=== PATIENT | female | born 1945 | race Caucasian/White ===

== ENCOUNTER 2017-12-05 10:36 | Day surgery (SDC) | payer MEDICARE, OTHER ==
[2017-12-03 08:20] VITALS: BP 114/77
[~2017-12-05] VITALS: Ht 156.2 cm; Wt 135.1 kg
[~2017-12-05 10:36] MED LIST: ALBU18HF INH; ASPI-496 PO; BUDE10.2 INH; BUPIVACAINE/PF 0.5% ONE; CALC-316 PO; CETI10CA PO; EPINEPHRINE 1 MG/ML, 1ML ONE; FURO40SO5 PO; GABA100C PO; LACTATED RINGERS 1,000 ML IV SCH; LIDOCAINE 1%, 2ML SQ PRN; METO50TA4 PO; MONT10TA6 PO; OXYC20TA2 PO; OXYM15TA7 PO; PANT40TA5 PO; PRED5TAB PO; PRED5TAB19 PO; SIMPONI IV; VENL75CA PO
[2017-12-05] MEDS ORDERED: LACTATED RINGERS 1,000 ML IV SCH (11:40)
[2017-12-05 11:42] VITALS: BP 121/90
[2017-12-05] MEDS ORDERED: SODIUM CHLORIDE 0.9% 1,000 ML IV SCH (11:47)
[2017-12-05] MEDS ORDERED: PROPOFOL 50 ML ONE (11:56)
[2017-12-05] MEDS ORDERED: PROPOFOL 10 MG/ML, 20ML ONE ×2 (11:56)
[2017-12-05] MEDS ORDERED: CEFAZOLIN 1,000 MG ONE (11:56)
[2017-12-05] MEDS ORDERED: MIDAZOLAM 1 MG/ML, 2ML ONE (11:56)
[2017-12-05] MEDS ORDERED: FENTANYL PF 100 MCG/2ML ONE (11:56)
[2017-12-05] MEDS ORDERED: BUPIVACAINE/PF-EPI 0.5% 1:200K IM ONE (12:16)
[2017-12-05] MEDS ORDERED: ONDANSETRON 2MG/ML, 2ML ONE ×2 (12:17)
[2017-12-05] MEDS ORDERED: OXYcodone 5 MG/5 ML ORAL.SOL UDC ONE (12:49)
[2017-12-05] MEDS ORDERED: HYDROmorphone 2 MG/ML, 1ML ONE (12:56)
[2017-12-05] MEDS ORDERED: LABETALOL 5MG/ML, 20ML IV PRN (13:00)
[2017-12-05] MEDS ORDERED: MIDAZOLAM 1 MG/ML, 2ML IV PRN (13:00)
[2017-12-05] MEDS ORDERED: METOPROLOL 1 MG/ML, 5ML IV PRN (13:00)
[2017-12-05] MEDS ORDERED: HYDROcodone/APAP 7.5-325MG/15ML UDC PO PRN (13:00)
[2017-12-05] MEDS ORDERED: EPHEDRINE 50 MG/ML, 1ML IVPush PRN (13:00)
[2017-12-05] MEDS ORDERED: ONDANSETRON 2MG/ML, 2ML IVPush PRN (13:00)
[2017-12-05] MEDS ORDERED: PROMETHAZINE 12.5 MG SUPP PR PRN (13:00)
[2017-12-05] MEDS ORDERED: FENTANYL PF 100 MCG/2ML IV PRN (13:00)
[2017-12-05] MEDS ORDERED: hydrALAzine 20 MG/ML, 1ML IV PRN (13:00)
[2017-12-05] MEDS ORDERED: ACETAMINOPHEN 325 MG TABLET PO PRN (13:00)
[2017-12-05] MEDS ORDERED: OXYcodone 5 MG/5 ML ORAL.SOL UDC PO PRN (13:00)
[2017-12-05] MEDS ORDERED: HYDROmorphone 1 MG/ML, 1ML IV PRN (13:00)
[2017-12-05] MEDS ORDERED: ALBUTEROL/IPRATROPIUM 2.5MG/0.5MG, 3 ML NPPB PRN (13:00)
[2017-12-05] MEDS ORDERED: ALBUTEROL SULFATE 2.5 MG/3 ML NPPB PRN (13:00)
== END 2017-12-05 15:35 ==
LOC: OUT 10:36
PROVIDERS: ATTEND Surgery
DX: T85.695A Other mechanical complication of other nervous system device, implant or graft, initial encounter (principal); J44.9 Chronic obstructive pulmonary disease, unspecified; E66.01 Morbid (severe) obesity due to excess calories; G47.33 Obstructive sleep apnea (adult) (pediatric); I25.10 Atherosclerotic heart disease of native coronary artery without angina pectoris; I12.9 Hypertensive chronic kidney disease with stage 1 through stage 4 chronic kidney disease, or unspecified chronic kidney disease; N18.3 Chronic kidney disease, stage 3 (moderate); Z95.5 Presence of coronary angioplasty implant and graft; K21.9 Gastro-esophageal reflux disease without esophagitis; Z88.1 Allergy status to other antibiotic agents; Z88.8 Allergy status to other drugs, medicaments and biological substances; Y83.8 Other surgical procedures as the cause of abnormal reaction of the patient, or of later complication, without mention of misadventure at the time of the procedure; Y92.89 Other specified places as the place of occurrence of the external cause
CPT/HCPCS: 63688; 93005; J0690; J1170; J2250; J2405; J2704; J3010; J3490; J7030; J0171

== ENCOUNTER 2018-01-11 11:16 | Inpatient (IN) | payer MEDICARE, OTHER ==
[~2018-01-11] VITALS: Ht 154.9 cm; Wt 143.0 kg
[~2018-01-11 11:16] MED LIST changes: -BUPIVACAINE/PF 0.5% ONE; -EPINEPHRINE 1 MG/ML, 1ML ONE; -LACTATED RINGERS 1,000 ML IV SCH; -LIDOCAINE 1%, 2ML SQ PRN
[2018-01-11] MEDS ORDERED: DILTIAZEM 5 MG/ML, 5ML IV ONE (12:00)
[2018-01-11] MEDS ORDERED: SODIUM CHLORIDE FLUSH 10ML SYR IVF ONE (12:00)
[2018-01-11 12:17] LABS: MEAN CORPUSCULAR HEMOGLOBIN 29.8 pg (27.0-34.8); MEAN CORPUSCULAR HGB CONC 32.8 g/dL (32.4-35.8); MEAN CORPUSCULAR VOLUME 90.8 fL (80-100); MEAN PLATELET VOLUME 8.4 fL (7.4-10.4); PLATELET COUNT 264 x10^3/uL (130-400); RED BLOOD COUNT 4.15 x10^6/uL (3.82-5.3); RED CELL DISTRIBUTION WIDTH 19.8 % (9.6-15.2)
[2018-01-11 12:25] LABS: INTERNATIONAL NORMALIZED RATIO 0.93 (0.93-1.1); PROTHROMBIN TIME 9.7 Seconds (9.6-11.5)
[2018-01-11 12:28] LABS: ALANINE AMINOTRANSFERASE 27 U/L (12-78); ALBUMIN 3.2 g/dL (3.4-5.0); ANION GAP 7 mmol/L (5-15); CALCIUM 8.5 mg/dL (8.5-10.1); CHLORIDE 98 mmol/L (98-107); CREATININE 1.75 mg/dL (0.55-1.02)
[2018-01-11] MEDS ORDERED: BUDE10.2 INH (12:31)
[2018-01-11 12:32] LABS: ALKALINE PHOSPHATASE 149 U/L (45-117); BILIRUBIN,TOTAL 0.9 mg/dL (0.2-1.0); TOTAL PROTEIN 6.8 g/dL (6.4-8.2); TROPONIN I < 0.015 ng/mL (0.000-0.045)
[2018-01-11] MEDS ORDERED: FOLI0.4T2 PO (12:32)
[2018-01-11] MEDS ORDERED: MULT1CAP19 PO (12:33)
[2018-01-11] MEDS ORDERED: GABA100C PO (12:33)
[2018-01-11] MEDS ORDERED: MOME17SP NAS (12:40)
[2018-01-11] MEDS ORDERED: ERGO500017 PO (12:42)
[2018-01-11] MEDS ORDERED: FLUO40CA2 PO (12:42)
[2018-01-11] MEDS ORDERED: SIMV20TA3 PO (12:43)
[2018-01-11] MEDS ORDERED: LISI-467 PO (12:43)
[2018-01-11] MEDS ORDERED: METO50TA4 PO (12:44)
[2018-01-11] MEDS ORDERED: ATEN25TA PO (12:44)
[2018-01-11] MEDS ORDERED: DIPH1TAB PO (12:45)
[2018-01-11] MEDS ORDERED: ONDA4TAB10 PO (12:46)
[2018-01-11 12:54] LABS: BASOPHILS # (AUTO) 0.04 x10^3/uL (0-0.1); BASOPHILS % (AUTO) 0 % (0-1); EOSINOPHILS % (AUTO) 1 % (1-7); LYMPHOCYTES # (AUTO) 1.42 x10^3/uL (1-3.4); LYMPHOCYTES % (AUTO) 8 % (22-44); MD SCAN; MONOCYTES # (AUTO) 0.95 x10^3/uL (0.2-0.8); MONOCYTES % (AUTO) 5 % (2-9); NEUTROPHILS # (AUTO) 16.58 x10^3/uL (1.8-6.8); NEUTROPHILS % (AUTO) 87 % (42-75)
[2018-01-11] MEDS ORDERED: SODIUM CHLORIDE 0.9% 1,000ML IVBOLUS ONE (13:30)
[2018-01-11] MEDS ORDERED: ENOXAPARIN 40 MG/0.4 ML SQ ONE (16:00)
[2018-01-11] MEDS ORDERED: ENOXAPARIN 40 MG/0.4 ML ONE (16:01)
[2018-01-11] MEDS: ENOXAPARIN 100 MG/ML SQ SCH (16:05)
[2018-01-11] MEDS ORDERED: SODIUM CHLORIDE FLUSH 10ML SYR IVF PRN (16:30)
[2018-01-11] MEDS ORDERED: OXYC30TA66 PO (17:58)
[2018-01-11] MEDS ORDERED: hydrALAzine 20 MG/ML, 1ML IVPush PRN (18:00)
[2018-01-11] MEDS ORDERED: ONDANSETRON 2MG/ML, 2ML IVPush PRN (18:00)
[2018-01-11] MEDS ORDERED: TEMPLATE NON-FORMULARY MED. (Oxycodone Hcl** 20 MG) PO SCH (18:00)
[2018-01-11] MEDS ORDERED: ALBUTEROL SULFATE 2.5 MG/3 ML NPPB PRN (18:00)
[2018-01-11] MEDS ORDERED: morphine SULFATE 10 MG/ML, 1ML IVPush PRN (18:00)
[2018-01-11] MEDS ORDERED: BISACODYL 10 MG SUPP PR PRN (18:00)
[2018-01-11] MEDS ORDERED: LABETALOL 5MG/ML, 20ML IVPush PRN (18:00)
[2018-01-11] MEDS ORDERED: ENALAPRILAT 1.25 MG/ML, 2ML IVPush PRN (18:00)
[2018-01-11] MEDS: ALBUTEROL SULFATE 2.5 MG/3 ML NPPB SCH (18:00)
[2018-01-11] MEDS: GABAPENTIN 100 MG CAPSULE PO SCH ×2 (18:00→20:14)
[2018-01-11 18:06] LABS: FREE T4 (FREE THYROXINE) 1.34 ng/dL (0.76-1.46); THYROID STIMULATING HORMONE 0.613 mIU/L (0.358-3.740)
[2018-01-11 18:07] LABS: HEMOGLOBIN A1C 5.9 % (4.2-6.3)
[2018-01-11] MEDS: OXYcodone IR 5MG TABLET PO PRN (20:14)
[2018-01-11] MEDS: CETIRIZINE 10 MG TABLET PO SCH (20:15)
[2018-01-11] MEDS: CALCIUM/VITAMIN D3 250-125 TABLET PO SCH (20:15)
[2018-01-11] MEDS: SIMVASTATIN 20 MG TABLET PO SCH (20:15)
[2018-01-11] MEDS: SODIUM CHLORIDE 0.9% 1,000 ML IV SCH (20:15)
[2018-01-11] MEDS: DILTIAZEM 125 MG in SODIUM CHLORIDE 0.9% 100 ML IV PRN (20:16)
[2018-01-11 20:28] VITALS: BP 101/68
[2018-01-11] MEDS: FLUTICASONE/VILANTEROL 200-25MCG/INH INH SCH (21:00)
[2018-01-11 21:36] LABS: TROPONIN I < 0.015 ng/mL (0.000-0.045)
[2018-01-11] MEDS: ACETAMINOPHEN 325 MG TABLET PO PRN (23:38)
[2018-01-12 01:51] VITALS: BP 90/47
[2018-01-12 03:14] LABS: MEAN CORPUSCULAR HEMOGLOBIN 29.5 pg (27.0-34.8); MEAN CORPUSCULAR HGB CONC 32.4 g/dL (32.4-35.8); MEAN CORPUSCULAR VOLUME 91.2 fL (80-100); MEAN PLATELET VOLUME 7.9 fL (7.4-10.4); PLATELET COUNT 235 x10^3/uL (130-400); RED BLOOD COUNT 3.64 x10^6/uL (3.82-5.3); RED CELL DISTRIBUTION WIDTH 19.8 % (9.6-15.2)
[2018-01-12 03:26] LABS: ALANINE AMINOTRANSFERASE 28 U/L (12-78); ALBUMIN 2.8 g/dL (3.4-5.0); ANION GAP 5 mmol/L (5-15); CALCIUM 8.3 mg/dL (8.5-10.1); CHLORIDE 102 mmol/L (98-107)
[2018-01-12 03:31] LABS: ALKALINE PHOSPHATASE 146 U/L (45-117); BILIRUBIN,TOTAL 1.1 mg/dL (0.2-1.0); CHOL/HDL RATIO 1.9; CHOLESTEROL, TOTAL 141 mg/dL (140-239); CREATININE 1.53 mg/dL (0.55-1.02); HDL CHOL % 53 % (28-40); HDL CHOLESTEROL (DIRECT) 75 mg/dL (40-60); LDL CHOLESTEROL,CALCULATED 50 mg/dL (54-169); LDL/HDL RATIO 0.7 (0.5-3.0); TOTAL PROTEIN 6.1 g/dL (6.4-8.2); TRIGLYCERIDES 80 mg/dL (50-200); TROPONIN I < 0.015 ng/mL (0.000-0.045); VLDL CHOLESTEROL 16 mg/dL (0-25)
[2018-01-12 03:34] LABS: BASOPHILS # (AUTO) 0.01 x10^3/uL (0-0.1); BASOPHILS % (AUTO) 0 % (0-1); EOSINOPHILS # (AUTO) 0.05 x10^3/uL (0-0.4); EOSINOPHILS % (AUTO) 0 % (1-7); LYMPHOCYTES % (AUTO) 14 % (22-44); MD SCAN; MONOCYTES # (AUTO) 1.06 x10^3/uL (0.2-0.8); MONOCYTES % (AUTO) 8 % (2-9); NEUTROPHILS # (AUTO) 10.96 x10^3/uL (1.8-6.8); NEUTROPHILS % (AUTO) 78 % (42-75)
[2018-01-12] MEDS: ENOXAPARIN 100 MG/ML SQ SCH ×2 (03:55→15:54)
[2018-01-12] MEDS: ENOXAPARIN 40 MG/0.4 ML SQ SCH ×2 (03:55→15:54)
[2018-01-12] MEDS ORDERED: ENOXAPARIN 60 MG/0.6 ML SQ SCH (04:00)
[2018-01-12] MEDS: OXYcodone IR 5MG TABLET PO PRN ×3 (05:16→15:53)
[2018-01-12] MEDS: SODIUM CHLORIDE 0.9% 1,000 ML IV SCH (05:16)
[2018-01-12] MEDS: ALBUTEROL SULFATE 2.5 MG/3 ML NPPB SCH ×2 (06:00)
[2018-01-12] MEDS: SENNA/DOCUSATE TABLET PO SCH (07:54)
[2018-01-12 08:39] VITALS: BP 125/78
[2018-01-12] MEDS: FLUTICASONE/VILANTEROL 200-25MCG/INH INH SCH (09:39)
[2018-01-12] MEDS: MOMETASONE FUROATE NAS SCH (09:40)
[2018-01-12] MEDS: CALCIUM/VITAMIN D3 250-125 TABLET PO SCH (09:41)
[2018-01-12] MEDS: FOLIC ACID 1 MG TABLET PO SCH (09:41)
[2018-01-12] MEDS: ASPIRIN 81 MG TABLET EC PO SCH (09:41)
[2018-01-12] MEDS: ACETAMINOPHEN 325 MG TABLET PO PRN (09:41)
[2018-01-12] MEDS: MAGNESIUM OXIDE 400 MG TABLET PO SCH (09:41)
[2018-01-12] MEDS: PANTOPROZOLE 40MG TABLET PO SCH (09:42)
[2018-01-12] MEDS: FLUOXETINE HCL 20 MG CAPSULE PO SCH (09:42)
[2018-01-12] MEDS: GABAPENTIN 100 MG CAPSULE PO SCH ×3 (09:42→20:25)
[2018-01-12] MEDS: LISINOPRIL 20 MG TABLET PO SCH (09:42)
[2018-01-12] MEDS: METOPROLOL SUCCINATE 50 MG TAB.ER.24H PO SCH (09:43)
[2018-01-12] MEDS: CETIRIZINE 10 MG TABLET PO SCH (09:44)
[2018-01-12] MEDS: MONTELUKAST 10 MG TABLET PO SCH (09:45)
[2018-01-12 12:07] VITALS: BP 134/80
[2018-01-12] MEDS: DILTIAZEM CD 180 MG CAP.ER.24H PO SCH (15:53)
[2018-01-12 18:42] VITALS: BP 111/63
[2018-01-12 18:43] LABS: MICROSCOPIC NOT IND
[2018-01-12 18:45] LABS: CULTURE INDICATED? NO
[2018-01-12] MEDS ORDERED: ENOXAPARIN 100 MG/ML SQ SCH (19:00)
[2018-01-12] MEDS: DILTIAZEM 125 MG in SODIUM CHLORIDE 0.9% 100 ML IV PRN (19:18)
[2018-01-12] MEDS: SIMVASTATIN 20 MG TABLET PO SCH (20:25)
[2018-01-13 02:35] VITALS: BP 90/58
[2018-01-13 03:27] VITALS: BP 106/59
[2018-01-13 07:25] VITALS: BP 156/78
[2018-01-13] MEDS: MOMETASONE FUROATE NAS SCH (09:00)
[2018-01-13] MEDS: FLUTICASONE/VILANTEROL 200-25MCG/INH INH SCH (09:49)
[2018-01-13] MEDS: MAGNESIUM OXIDE 400 MG TABLET PO SCH (09:49)
[2018-01-13] MEDS: GABAPENTIN 100 MG CAPSULE PO SCH ×3 (09:50→21:00)
[2018-01-13] MEDS: LISINOPRIL 20 MG TABLET PO SCH (09:50)
[2018-01-13] MEDS: DILTIAZEM CD 180 MG CAP.ER.24H PO SCH (09:50)
[2018-01-13] MEDS: ASPIRIN 81 MG TABLET EC PO SCH (09:50)
[2018-01-13] MEDS: FLUOXETINE HCL 20 MG CAPSULE PO SCH (09:50)
[2018-01-13] MEDS: CALCIUM/VITAMIN D3 250-125 TABLET PO SCH (09:50)
[2018-01-13] MEDS: PANTOPROZOLE 40MG TABLET PO SCH (09:50)
[2018-01-13] MEDS: FOLIC ACID 1 MG TABLET PO SCH (09:50)
[2018-01-13] MEDS: CYCLOBENZAPRINE 10 MG TABLET PO PRN (09:51)
[2018-01-13] MEDS: MONTELUKAST 10 MG TABLET PO SCH (09:53)
[2018-01-13] MEDS: METOPROLOL SUCCINATE 50 MG TAB.ER.24H PO SCH (09:53)
[2018-01-13] MEDS: SENNA/DOCUSATE TABLET PO SCH (09:53)
[2018-01-13] MEDS: CETIRIZINE 10 MG TABLET PO SCH (09:56)
[2018-01-13] MEDS: ACETAMINOPHEN 325 MG TABLET PO PRN (10:54)
[2018-01-13] MEDS: OXYcodone IR 5MG TABLET PO PRN (10:54)
[2018-01-13 10:56] VITALS: BP 117/70
[2018-01-13 12:42] VITALS: BP 111/74
[2018-01-13] MEDS: FUROSEMIDE 40 MG TABLET PO SCH (13:56)
[2018-01-13] MEDS ORDERED: ENOXAPARIN 40 MG/0.4 ML SQ SCH (16:00)
[2018-01-13] MEDS: DILTIAZEM 125 MG in SODIUM CHLORIDE 0.9% 100 ML IV PRN (17:32)
[2018-01-13] MEDS: OxyconTIN ER 20 MG TAB.ER PO SCH ×2 (17:32→21:00)
[2018-01-13 19:23] VITALS: BP 126/76
[2018-01-13] MEDS: SIMVASTATIN 20 MG TABLET PO SCH (21:05)
[2018-01-14 01:25] VITALS: BP 103/64
[2018-01-14] MEDS: DILTIAZEM 125 MG in SODIUM CHLORIDE 0.9% 100 ML IV PRN ×2 (02:16→17:56)
[2018-01-14 05:03] LABS: BASOPHILS # (AUTO) 0.04 x10^3/uL (0-0.1); BASOPHILS % (AUTO) 0 % (0-1); EOSINOPHILS # (AUTO) 0.17 x10^3/uL (0-0.4); EOSINOPHILS % (AUTO) 1 % (1-7); LYMPHOCYTES # (AUTO) 1.51 x10^3/uL (1-3.4); LYMPHOCYTES % (AUTO) 10 % (22-44); MD NO; MEAN CORPUSCULAR HEMOGLOBIN 29.8 pg (27.0-34.8); MEAN CORPUSCULAR HGB CONC 32.6 g/dL (32.4-35.8); MEAN CORPUSCULAR VOLUME 91.3 fL (80-100); MEAN PLATELET VOLUME 8.8 fL (7.4-10.4); MONOCYTES # (AUTO) 1.24 x10^3/uL (0.2-0.8); MONOCYTES % (AUTO) 8 % (2-9); NEUTROPHILS # (AUTO) 12.76 x10^3/uL (1.8-6.8); NEUTROPHILS % (AUTO) 81 % (42-75); PLATELET COUNT 250 x10^3/uL (130-400); RED BLOOD COUNT 3.63 x10^6/uL (3.82-5.3); RED CELL DISTRIBUTION WIDTH 19.2 % (9.6-15.2)
[2018-01-14 05:12] LABS: ANION GAP 9 mmol/L (5-15); CALCIUM 8.4 mg/dL (8.5-10.1); CHLORIDE 98 mmol/L (98-107)
[2018-01-14 05:13] LABS: CREATININE 1.89 mg/dL (0.55-1.02)
[2018-01-14] MEDS: OxyconTIN ER 20 MG TAB.ER PO SCH ×2 (05:47→10:42)
[2018-01-14 08:15] VITALS: BP 124/81
[2018-01-14] MEDS: MOMETASONE FUROATE NAS SCH (09:00)
[2018-01-14] MEDS: FOLIC ACID 1 MG TABLET PO SCH (10:41)
[2018-01-14] MEDS: PANTOPROZOLE 40MG TABLET PO SCH (10:41)
[2018-01-14] MEDS: FLUOXETINE HCL 20 MG CAPSULE PO SCH (10:41)
[2018-01-14] MEDS: MONTELUKAST 10 MG TABLET PO SCH (10:41)
[2018-01-14] MEDS: FUROSEMIDE 40 MG TABLET PO SCH (10:42)
[2018-01-14] MEDS: GABAPENTIN 100 MG CAPSULE PO SCH ×3 (10:42→22:47)
[2018-01-14] MEDS: ASPIRIN 81 MG TABLET EC PO SCH (10:42)
[2018-01-14] MEDS: METOPROLOL SUCCINATE 50 MG TAB.ER.24H PO SCH (10:42)
[2018-01-14] MEDS: CETIRIZINE 10 MG TABLET PO SCH (10:42)
[2018-01-14] MEDS: DILTIAZEM 240 MG CAP.ER.24H PO SCH (10:42)
[2018-01-14] MEDS: CALCIUM/VITAMIN D3 250-125 TABLET PO SCH (10:42)
[2018-01-14] MEDS: SENNA/DOCUSATE TABLET PO SCH (10:43)
[2018-01-14] MEDS: LISINOPRIL 20 MG TABLET PO SCH (10:43)
[2018-01-14] MEDS: MAGNESIUM OXIDE 400 MG TABLET PO SCH (10:43)
[2018-01-14] MEDS: FLUTICASONE/VILANTEROL 200-25MCG/INH INH SCH (10:44)
[2018-01-14] MEDS ORDERED: VENL75CA PO (10:47)
[2018-01-14] MEDS: CYCLOBENZAPRINE 10 MG TABLET PO PRN (10:51)
[2018-01-14 13:50] VITALS: BP 105/62
[2018-01-14] MEDS ORDERED: DIGOXIN 0.25 MG/ML, 2ML IVPush ONE (14:30)
[2018-01-14] MEDS ORDERED: HEPARIN 5,000 UNITS/ML, 1ML IV ONE (14:30)
[2018-01-14] MEDS: HEPARIN 25,000 UNITS/500ML PMX 500 ML IV PRN (15:28)
[2018-01-14 18:57] VITALS: BP 108/66
[2018-01-14] MEDS: SIMVASTATIN 20 MG TABLET PO SCH (22:47)
[2018-01-14] MEDS: HEPARIN 5,000 UNITS/ML, 1ML IV PRN (22:48)
[2018-01-14] MEDS ORDERED: OxyconTIN ER 20 MG TAB.ER PO SCH (23:00)
[2018-01-14] MEDS ORDERED: FUROSEMIDE 40 MG/4 ML IV ONE (23:30)
[2018-01-15 00:31] VITALS: BP 113/77
[2018-01-15 05:07] LABS: MEAN CORPUSCULAR HEMOGLOBIN 29.8 pg (27.0-34.8); MEAN CORPUSCULAR HGB CONC 32.6 g/dL (32.4-35.8); MEAN CORPUSCULAR VOLUME 91.3 fL (80-100); MEAN PLATELET VOLUME 8.5 fL (7.4-10.4); PLATELET COUNT 293 x10^3/uL (130-400); RED BLOOD COUNT 3.77 x10^6/uL (3.82-5.3); RED CELL DISTRIBUTION WIDTH 18.8 % (9.6-15.2)
[2018-01-15] MEDS: DILTIAZEM 125 MG in SODIUM CHLORIDE 0.9% 100 ML IV PRN (05:13)
[2018-01-15 05:22] LABS: ANION GAP 9 mmol/L (5-15); CALCIUM 8.6 mg/dL (8.5-10.1); CHLORIDE 100 mmol/L (98-107)
[2018-01-15 05:25] LABS: CREATININE 1.67 mg/dL (0.55-1.02)
[2018-01-15 06:01] LABS: BASOPHILS # (AUTO) 0.01 x10^3/uL (0-0.1); BASOPHILS % (AUTO) 0 % (0-1); EOSINOPHILS # (AUTO) 0.16 x10^3/uL (0-0.4); EOSINOPHILS % (AUTO) 1 % (1-7); LYMPHOCYTES # (AUTO) 1.35 x10^3/uL (1-3.4); LYMPHOCYTES % (AUTO) 10 % (22-44); MONOCYTES % (AUTO) 6 % (2-9); NEUTROPHILS # (AUTO) 11.89 x10^3/uL (1.8-6.8); NEUTROPHILS % (AUTO) 84 % (42-75)
[2018-01-15 06:02] LABS: MD SCAN
[2018-01-15 08:50] VITALS: BP 111/77
[2018-01-15] MEDS: MOMETASONE FUROATE NAS SCH (09:00)
[2018-01-15] MEDS: FLUOXETINE HCL 20 MG CAPSULE PO SCH (09:00)
[2018-01-15] MEDS ORDERED: SODIUM CHLORIDE 0.9% 1,000 ML IV ONE (09:00)
[2018-01-15] MEDS: DIGOXIN 0.25 MG/ML, 2ML IVPush SCH (09:00)
[2018-01-15] MEDS ORDERED: FUROSEMIDE 40 MG/4 ML IV SCH (09:00)
[2018-01-15] MEDS: FLUTICASONE/VILANTEROL 200-25MCG/INH INH SCH (09:18)
[2018-01-15] MEDS: ASPIRIN 81 MG TABLET EC PO SCH (09:19)
[2018-01-15] MEDS: DILTIAZEM 240 MG CAP.ER.24H PO SCH (09:19)
[2018-01-15] MEDS: CALCIUM/VITAMIN D3 250-125 TABLET PO SCH (09:19)
[2018-01-15] MEDS: FOLIC ACID 1 MG TABLET PO SCH (09:19)
[2018-01-15] MEDS: SENNA/DOCUSATE TABLET PO SCH (09:19)
[2018-01-15] MEDS: MONTELUKAST 10 MG TABLET PO SCH (09:19)
[2018-01-15] MEDS: MAGNESIUM OXIDE 400 MG TABLET PO SCH (09:20)
[2018-01-15] MEDS: CETIRIZINE 10 MG TABLET PO SCH (09:22)
[2018-01-15] MEDS: LISINOPRIL 20 MG TABLET PO SCH (09:22)
[2018-01-15] MEDS: GABAPENTIN 100 MG CAPSULE PO SCH ×3 (09:22→20:56)
[2018-01-15] MEDS: PANTOPROZOLE 40MG TABLET PO SCH (09:22)
[2018-01-15] MEDS: METOPROLOL SUCCINATE 50 MG TAB.ER.24H PO SCH (09:22)
[2018-01-15] MEDS: CYCLOBENZAPRINE 10 MG TABLET PO PRN (13:04)
[2018-01-15] MEDS: HEPARIN 5,000 UNITS/ML, 1ML IV PRN ×2 (14:36→21:52)
[2018-01-15] MEDS ORDERED: ALBUTEROL SULFATE 2.5 MG/3 ML ONE (15:34)
[2018-01-15] MEDS ORDERED: PROPOFOL 10 MG/ML, 20ML ONE (15:43)
[2018-01-15] MEDS ORDERED: ALBUTEROL SULFATE 2.5 MG/3 ML NPPB PRN (16:00)
[2018-01-15 20:00] VITALS: BP 126/80
[2018-01-15] MEDS: OXYcodone IR 5MG TABLET PO PRN (20:56)
[2018-01-15] MEDS: SIMVASTATIN 20 MG TABLET PO SCH (20:56)
[2018-01-16 01:32] VITALS: BP 102/63
[2018-01-16 04:42] LABS: ANION GAP 8 mmol/L (5-15); CHLORIDE 100 mmol/L (98-107); CREATININE 1.93 mg/dL (0.55-1.02)
[2018-01-16] MEDS: HEPARIN 25,000 UNITS/500ML PMX 500 ML IV PRN (05:07)
[2018-01-16 09:49] VITALS: BP 114/68
[2018-01-16] MEDS: SENNA/DOCUSATE TABLET PO SCH (09:55)
[2018-01-16] MEDS: CEFTRIAXONE PMX 2GM/50ML 50 ML IV SCH ×2 (09:55→11:34)
[2018-01-16] MEDS: DOXYCYCLINE 100MG TABLET PO SCH ×2 (09:55→19:36)
[2018-01-16] MEDS: ASPIRIN 81 MG TABLET EC PO SCH (09:55)
[2018-01-16] MEDS: FLUTICASONE/VILANTEROL 200-25MCG/INH INH SCH (09:55)
[2018-01-16] MEDS: GABAPENTIN 100 MG CAPSULE PO SCH ×3 (09:56→19:35)
[2018-01-16] MEDS: DILTIAZEM 240 MG CAP.ER.24H PO SCH (09:56)
[2018-01-16] MEDS: CETIRIZINE 10 MG TABLET PO SCH (09:56)
[2018-01-16] MEDS: CALCIUM/VITAMIN D3 250-125 TABLET PO SCH (09:56)
[2018-01-16] MEDS: FLUOXETINE HCL 20 MG CAPSULE PO SCH (09:57)
[2018-01-16] MEDS: MAGNESIUM OXIDE 400 MG TABLET PO SCH (09:57)
[2018-01-16] MEDS: FOLIC ACID 1 MG TABLET PO SCH (09:58)
[2018-01-16] MEDS: LISINOPRIL 20 MG TABLET PO SCH (09:58)
[2018-01-16] MEDS: PANTOPROZOLE 40MG TABLET PO SCH (09:58)
[2018-01-16] MEDS: MOMETASONE FUROATE NAS SCH (10:06)
[2018-01-16] MEDS: MONTELUKAST 10 MG TABLET PO SCH (10:06)
[2018-01-16] MEDS: DIGOXIN 0.25 MG/ML, 2ML IVPush SCH (10:06)
[2018-01-16] MEDS: APIXABAN 5 MG TABLET PO SCH ×2 (12:28→19:36)
[2018-01-16 15:09] VITALS: BP 114/72
[2018-01-16 19:00] VITALS: BP 123/74
[2018-01-16] MEDS: OXYcodone IR 5MG TABLET PO PRN (19:35)
[2018-01-16] MEDS: CYCLOBENZAPRINE 10 MG TABLET PO PRN (19:35)
[2018-01-16] MEDS: SIMVASTATIN 20 MG TABLET PO SCH (19:36)
[2018-01-16] MEDS: POLYETHYLENE GLYCOL 17 GM PACKET PO PRN (19:46)
[2018-01-17 00:05] VITALS: BP 141/80
[2018-01-17] MEDS: ACETAMINOPHEN 325 MG TABLET PO PRN (00:20)
[2018-01-17] MEDS: CEFTRIAXONE PMX 2GM/50ML 50 ML IV SCH (06:16)
[2018-01-17] MEDS ORDERED: LISINOPRIL 5 MG TABLET ONE (08:20)
[2018-01-17 08:24] VITALS: BP 144/70
[2018-01-17] MEDS: ASPIRIN 81 MG TABLET EC PO SCH (08:28)
[2018-01-17] MEDS: FLUTICASONE/VILANTEROL 200-25MCG/INH INH SCH (08:28)
[2018-01-17] MEDS: SENNA/DOCUSATE TABLET PO SCH (08:29)
[2018-01-17] MEDS: CETIRIZINE 10 MG TABLET PO SCH (08:29)
[2018-01-17] MEDS: MAGNESIUM OXIDE 400 MG TABLET PO SCH (08:29)
[2018-01-17] MEDS: CALCIUM/VITAMIN D3 250-125 TABLET PO SCH (08:29)
[2018-01-17] MEDS: MONTELUKAST 10 MG TABLET PO SCH (08:30)
[2018-01-17] MEDS: DOXYCYCLINE 100MG TABLET PO SCH (08:30)
[2018-01-17] MEDS: GABAPENTIN 100 MG CAPSULE PO SCH (08:30)
[2018-01-17] MEDS: FLUOXETINE HCL 20 MG CAPSULE PO SCH (08:30)
[2018-01-17] MEDS: DILTIAZEM 240 MG CAP.ER.24H PO SCH (08:30)
[2018-01-17] MEDS: PANTOPROZOLE 40MG TABLET PO SCH (08:31)
[2018-01-17] MEDS: MOMETASONE FUROATE NAS SCH (08:31)
[2018-01-17] MEDS: LISINOPRIL 20 MG TABLET PO SCH (08:31)
[2018-01-17] MEDS: APIXABAN 5 MG TABLET PO SCH (08:31)
[2018-01-17] MEDS: FOLIC ACID 1 MG TABLET PO SCH (08:31)
[2018-01-17] MEDS: POLYETHYLENE GLYCOL 17 GM PACKET PO PRN (08:40)
[2018-01-17] MEDS: OXYcodone IR 5MG TABLET PO PRN (08:41)
[2018-01-17] MEDS: CYCLOBENZAPRINE 10 MG TABLET PO PRN (08:41)
[2018-01-17] MEDS ORDERED: APIX5TAB PO (09:10)
[2018-01-17] MEDS ORDERED: DILT240C55 PO (09:10)
[2018-01-17] MEDS ORDERED: CEFD300C37 PO (09:10)
[2018-01-17] MEDS ORDERED: POLY17PO5 PO (09:10)
[2018-01-17] MEDS ORDERED: GABA-826 PO (09:10)
[2018-01-17] MEDS ORDERED: MAGN400T26 PO (09:10)
[2018-01-17] MEDS ORDERED: DOXY100T10 PO (09:10)
[2018-01-17] MEDS ORDERED: SENN1TAB7 PO (09:10)
[2018-01-17] MEDS ORDERED: LISI-167 PO (09:10)
== END 2018-01-17 11:40 | disposition home or self-care (01) | DRG 871 ==
LOC: ED 12:17 → EDIP 16:24 → 5SO 18:20 → DCLOUNGE 01-17 11:16
PROVIDERS: ADMIT Internal Medicine; ATTEND Internal Medicine
PROC: 5A2204Z Restoration of Cardiac Rhythm, Single (ICD-10-PCS; principal; 2018-01-15 11:40)
DX: A41.9 Sepsis, unspecified organism (principal); I26.99 Other pulmonary embolism without acute cor pulmonale; J18.9 Pneumonia, unspecified organism; J96.10 Chronic respiratory failure, unspecified whether with hypoxia or hypercapnia; I48.91 Unspecified atrial fibrillation; I08.1 Rheumatic disorders of both mitral and tricuspid valves; N18.3 Chronic kidney disease, stage 3 (moderate); Z99.81 Dependence on supplemental oxygen; E66.01 Morbid (severe) obesity due to excess calories; J44.0 Chronic obstructive pulmonary disease with (acute) lower respiratory infection; I48.92 Unspecified atrial flutter; I49.2 Junctional premature depolarization; J98.11 Atelectasis; Z68.43 Body mass index [BMI] 50.0-59.9, adult; I44.1 Atrioventricular block, second degree; I12.9 Hypertensive chronic kidney disease with stage 1 through stage 4 chronic kidney disease, or unspecified chronic kidney disease; E55.9 Vitamin D deficiency, unspecified; E78.5 Hyperlipidemia, unspecified; I25.10 Atherosclerotic heart disease of native coronary artery without angina pectoris; E78.00 Pure hypercholesterolemia, unspecified; G47.33 Obstructive sleep apnea (adult) (pediatric); G89.29 Other chronic pain; K21.9 Gastro-esophageal reflux disease without esophagitis; Z79.01 Long term (current) use of anticoagulants; Z87.891 Personal history of nicotine dependence
CPT/HCPCS: 36415; 71045; 71046; 78582; 80048; 80053; 80061; 81003; 83036; 83605; 83735; 83880; 84439; 84443; 84484; 85025; 85379; 85520; 85610; 85730; 87040; 92960; 93005; 93306; 93312; 93325; 93970; 94640; 96360; 96361; 96372; J0696; J1644; J1650; J1940; J2704; J7613; A9540; A9558; C9898; J1160; J7030

== ENCOUNTER 2018-01-27 11:27 | Inpatient (IN) | payer MEDICARE, OTHER ==
[~2018-01-27] VITALS: Ht 154.9 cm; Wt 141.5 kg
[~2018-01-27 11:27] MED LIST changes: +APIX5TAB PO; +ATEN25TA PO; +CEFD300C37 PO; +DILT240C55 PO; +DIPH1TAB PO; +DOXY100T10 PO; +ERGO500017 PO; +FLUO40CA2 PO; +FOLI0.4T2 PO; +GABA-826 PO; +LISI-167 PO; +LISI-467 PO; +MAGN400T26 PO; +MOME17SP NAS; +MULT1CAP19 PO; +ONDA4TAB10 PO; +OXYC30TA66 PO; +POLY17PO5 PO; +SENN1TAB7 PO; +SIMV20TA3 PO
[2018-01-27] MEDS ORDERED: SODIUM CHLORIDE FLUSH 10ML SYR IVF ONE (12:00)
[2018-01-27] MEDS ORDERED: MORPHINE SULFATE 4 MG/ML, 1ML IVPush PRN (12:00)
[2018-01-27] MEDS ORDERED: SODIUM CHLORIDE 0.9% 1,000ML IVBOLUS ONE (12:00)
[2018-01-27 12:18] LABS: HCT (SEDRATE) 37.3 % (34.6-47.8); MEAN CORPUSCULAR HEMOGLOBIN 30.1 pg (27.0-34.8); MEAN CORPUSCULAR VOLUME 91.3 fL (80-100); MEAN PLATELET VOLUME 7.6 fL (7.4-10.4); PLATELET COUNT 326 x10^3/uL (130-400); RED BLOOD COUNT 4.08 x10^6/uL (3.82-5.3); RED CELL DISTRIBUTION WIDTH 17.9 % (9.6-15.2)
[2018-01-27 12:24] LABS: INTERNATIONAL NORMALIZED RATIO 1.02 (0.93-1.1); PROTHROMBIN TIME 10.5 Seconds (9.6-11.5)
[2018-01-27 12:29] LABS: ALANINE AMINOTRANSFERASE 31 U/L (12-78); ALBUMIN 3.2 g/dL (3.4-5.0); ANION GAP 5 mmol/L (5-15); CALCIUM 8.5 mg/dL (8.5-10.1); CHLORIDE 103 mmol/L (98-107); CREATININE 1.43 mg/dL (0.55-1.02)
[2018-01-27 12:32] LABS: ALKALINE PHOSPHATASE 162 U/L (45-117); BILIRUBIN,TOTAL 0.5 mg/dL (0.2-1.0); CREATINE KINASE, TOTAL 20 U/L (26-192); TOTAL PROTEIN 6.6 g/dL (6.4-8.2)
[2018-01-27] MEDS ORDERED: MORPHINE SULFATE 4 MG/ML, 1ML ONE (12:32)
[2018-01-27 12:49] LABS: BASOPHILS # (AUTO) 0.02 x10^3/uL (0-0.1); BASOPHILS % (AUTO) 0 % (0-1); EOSINOPHILS # (AUTO) 0.02 x10^3/uL (0-0.4); EOSINOPHILS % (AUTO) 0 % (1-7); LYMPHOCYTES # (AUTO) 0.57 x10^3/uL (1-3.4); LYMPHOCYTES % (AUTO) 3 % (22-44); MD MORPH REVIEW ONLY; MONOCYTES # (AUTO) 0.77 x10^3/uL (0.2-0.8); MONOCYTES % (AUTO) 4 % (2-9); NEUTROPHILS % (AUTO) 93 % (42-75)
[2018-01-27] MEDS ORDERED: PIPERACILLIN/TAZO/PMX 3.375GM 50 ML ONE (12:49)
[2018-01-27 12:51] LABS: <PLATELET ESTIMATE> ADEQUATE; <PLT MORPHOLOGY> NORMAL PLT MORPH; ANISOCYTOSIS 1+; POLYCHROMASIA 1+
[2018-01-27 12:57] LABS: SEDIMENTATION RATE 31 mm/hr (0-20)
[2018-01-27] MEDS ORDERED: ACYCLOVIR 800 MG in SODIUM CHLORIDE 0.9% 250 ML IV ONE (13:00)
[2018-01-27] MEDS ORDERED: PIPERACILLIN/TAZO/PMX 3.375GM 50 ML IV ONE (13:00)
[2018-01-27] MEDS ORDERED: SIMV20TA3 PO (13:14)
[2018-01-27] MEDS ORDERED: PHARMACY MAY ADJ FOR RENAL FX MC PRN (14:30)
[2018-01-27] MEDS ORDERED: DOCUSATE 100 MG CAPSULE PO PRN (14:30)
[2018-01-27] MEDS ORDERED: LABETALOL 5MG/ML, 20ML IVPush PRN (14:30)
[2018-01-27] MEDS ORDERED: ONDANSETRON ODT 4 MG PO PRN (14:30)
[2018-01-27] MEDS ORDERED: HEPARIN 5,000 UNITS/ML, 1ML SQ SCH (14:30)
[2018-01-27] MEDS ORDERED: BISACODYL 10 MG SUPP PR PRN (14:30)
[2018-01-27] MEDS ORDERED: ACETAMINOPHEN 325 MG TABLET PO PRN (14:30)
[2018-01-27] MEDS ORDERED: hydrALAzine 20 MG/ML, 1ML IVPush PRN (14:30)
[2018-01-27] MEDS ORDERED: POLYETHYLENE GLYCOL 17 GM PACKET PO PRN (14:30)
[2018-01-27] MEDS ORDERED: ALBUTEROL SULFATE 2.5 MG/3 ML NPPB PRN (15:30)
[2018-01-27] MEDS: OxyconTIN ER 20 MG TAB.ER PO SCH (15:42)
[2018-01-27] MEDS: SODIUM CHLORIDE 0.9% 1,000 ML IV SCH (15:44)
[2018-01-27 16:12] VITALS: BP 152/80
[2018-01-27] MEDS: GABAPENTIN 100 MG CAPSULE PO SCH ×2 (16:44→21:44)
[2018-01-27 17:36] LABS: MICROSCOPIC NOT IND
[2018-01-27 17:41] LABS: CULTURE INDICATED? NO
[2018-01-27] MEDS: ACYCLOVIR 800 MG TABLET PO SCH ×3 (17:45→21:45)
[2018-01-27 19:47] VITALS: BP 137/77
[2018-01-27] MEDS: SIMVASTATIN 20 MG TABLET PO SCH (21:44)
[2018-01-27] MEDS: CALCIUM/VITAMIN D3 250-125 TABLET PO SCH (21:44)
[2018-01-27] MEDS: APIXABAN 5 MG TABLET PO SCH (21:44)
[2018-01-28] MEDS: OXYcodone/APAP 5/325MG TABLET PO PRN ×4 (00:04→20:09)
[2018-01-28] MEDS: MORPHINE SULFATE 4 MG/ML, 1ML IVPush PRN ×3 (01:34→23:18)
[2018-01-28 01:50] VITALS: BP 152/78
[2018-01-28] MEDS: OxyconTIN ER 20 MG TAB.ER PO SCH ×2 (03:46→14:26)
[2018-01-28] MEDS: SODIUM CHLORIDE 0.9% 1,000 ML IV SCH ×3 (03:46→23:18)
[2018-01-28 05:15] LABS: MEAN CORPUSCULAR HEMOGLOBIN 29.6 pg (27.0-34.8); MEAN CORPUSCULAR HGB CONC 32.3 g/dL (32.4-35.8); MEAN CORPUSCULAR VOLUME 91.6 fL (80-100); MEAN PLATELET VOLUME 7.4 fL (7.4-10.4); PLATELET COUNT 271 x10^3/uL (130-400); RED BLOOD COUNT 3.82 x10^6/uL (3.82-5.3)
[2018-01-28 05:27] LABS: ALBUMIN 2.6 g/dL (3.4-5.0); ANION GAP 6 mmol/L (5-15); CALCIUM 8.2 mg/dL (8.5-10.1); CHLORIDE 106 mmol/L (98-107)
[2018-01-28 05:30] LABS: ALANINE AMINOTRANSFERASE 27 U/L (12-78); ALKALINE PHOSPHATASE 134 U/L (45-117); BILIRUBIN,TOTAL 0.7 mg/dL (0.2-1.0); CREATININE 1.03 mg/dL (0.55-1.02); TOTAL PROTEIN 5.8 g/dL (6.4-8.2)
[2018-01-28 06:03] LABS: BASOPHILS # (AUTO) 0.02 x10^3/uL (0-0.1); BASOPHILS % (AUTO) 0 % (0-1); EOSINOPHILS # (AUTO) 0.14 x10^3/uL (0-0.4); EOSINOPHILS % (AUTO) 1 % (1-7); LYMPHOCYTES # (AUTO) 0.99 x10^3/uL (1-3.4); LYMPHOCYTES % (AUTO) 10 % (22-44); MD SCAN; MONOCYTES % (AUTO) 6 % (2-9); NEUTROPHILS # (AUTO) 8.27 x10^3/uL (1.8-6.8); NEUTROPHILS % (AUTO) 83 % (42-75)
[2018-01-28] MEDS: ACYCLOVIR 800 MG TABLET PO SCH ×5 (06:04→20:08)
[2018-01-28] MEDS: FOLIC ACID 1 MG TABLET PO SCH (08:26)
[2018-01-28] MEDS: MULTIVITAMIN 1 TABLET PO SCH (08:26)
[2018-01-28] MEDS: CETIRIZINE 10 MG TABLET PO SCH (08:27)
[2018-01-28] MEDS: CALCIUM/VITAMIN D3 250-125 TABLET PO SCH ×2 (08:27→20:08)
[2018-01-28] MEDS: MAGNESIUM OXIDE 400 MG TABLET PO SCH (08:27)
[2018-01-28] MEDS: ASPIRIN 81 MG TABLET EC PO SCH (08:27)
[2018-01-28] MEDS: MONTELUKAST 10 MG TABLET PO SCH (08:27)
[2018-01-28] MEDS: ERGOCALCIFEROL 50,000 UNIT CAPSULE PO SCH (08:27)
[2018-01-28] MEDS: APIXABAN 5 MG TABLET PO SCH ×2 (08:27→20:08)
[2018-01-28] MEDS: LISINOPRIL 10 MG TABLET PO SCH (08:27)
[2018-01-28] MEDS: DILTIAZEM 240 MG CAP.ER.24H PO SCH (08:27)
[2018-01-28] MEDS: GABAPENTIN 100 MG CAPSULE PO SCH (08:27)
[2018-01-28] MEDS: VENLAFAXINE 75 MG CAP ER PO SCH (08:29)
[2018-01-28 08:33] VITALS: BP 146/83
[2018-01-28] MEDS ORDERED: VENLAFAXINE 75 MG CAP ER PO SCH (09:00)
[2018-01-28] MEDS: FLUTICASONE NASAL SPRAY 16GM NAS SCH (09:29)
[2018-01-28] MEDS: FLUTICASONE/VILANTEROL 200-25MCG/INH INH SCH (09:29)
[2018-01-28 15:17] VITALS: BP 157/76
[2018-01-28] MEDS: GABAPENTIN 300 MG CAPSULE PO SCH ×2 (17:21→20:07)
[2018-01-28] MEDS: SIMVASTATIN 20 MG TABLET PO SCH (20:08)
[2018-01-28 20:14] VITALS: BP 155/85
[2018-01-29 00:42] VITALS: BP 136/75
[2018-01-29] MEDS: OxyconTIN ER 20 MG TAB.ER PO SCH ×2 (03:51→15:32)
[2018-01-29] MEDS: ACYCLOVIR 800 MG TABLET PO SCH ×2 (05:23→08:52)
[2018-01-29] MEDS: OXYcodone/APAP 5/325MG TABLET PO PRN (05:23)
[2018-01-29 06:09] LABS: ALBUMIN 2.4 g/dL (3.4-5.0); ANION GAP 7 mmol/L (5-15); CHLORIDE 103 mmol/L (98-107)
[2018-01-29 06:13] LABS: ALANINE AMINOTRANSFERASE 23 U/L (12-78); ALKALINE PHOSPHATASE 117 U/L (45-117); BILIRUBIN,TOTAL 0.5 mg/dL (0.2-1.0); CALCIUM 8.4 mg/dL (8.5-10.1); CREATININE 0.89 mg/dL (0.55-1.02); TOTAL PROTEIN 5.7 g/dL (6.4-8.2)
[2018-01-29 06:28] LABS: BASOPHILS # (AUTO) 0.04 x10^3/uL (0-0.1); BASOPHILS % (AUTO) 0 % (0-1); EOSINOPHILS # (AUTO) 0.27 x10^3/uL (0-0.4); EOSINOPHILS % (AUTO) 3 % (1-7); LYMPHOCYTES # (AUTO) 1.28 x10^3/uL (1-3.4); LYMPHOCYTES % (AUTO) 13 % (22-44); MD SCAN; MEAN CORPUSCULAR HEMOGLOBIN 30.5 pg (27.0-34.8); MEAN CORPUSCULAR HGB CONC 32.8 g/dL (32.4-35.8); MEAN CORPUSCULAR VOLUME 92.9 fL (80-100); MEAN PLATELET VOLUME 8.2 fL (7.4-10.4); MONOCYTES # (AUTO) 0.63 x10^3/uL (0.2-0.8); MONOCYTES % (AUTO) 6 % (2-9); NEUTROPHILS # (AUTO) 7.65 x10^3/uL (1.8-6.8); NEUTROPHILS % (AUTO) 78 % (42-75); PLATELET COUNT 234 x10^3/uL (130-400); RED BLOOD COUNT 3.54 x10^6/uL (3.82-5.3); RED CELL DISTRIBUTION WIDTH 17.2 % (9.6-15.2)
[2018-01-29] MEDS: APIXABAN 5 MG TABLET PO SCH ×2 (08:52→21:29)
[2018-01-29] MEDS: CALCIUM/VITAMIN D3 250-125 TABLET PO SCH ×2 (08:52→21:29)
[2018-01-29] MEDS: MONTELUKAST 10 MG TABLET PO SCH (08:52)
[2018-01-29] MEDS: MAGNESIUM OXIDE 400 MG TABLET PO SCH (08:52)
[2018-01-29] MEDS: MULTIVITAMIN 1 TABLET PO SCH (08:52)
[2018-01-29] MEDS: ASPIRIN 81 MG TABLET EC PO SCH (08:52)
[2018-01-29] MEDS: MORPHINE SULFATE 4 MG/ML, 1ML IVPush PRN (08:53)
[2018-01-29] MEDS: VENLAFAXINE 75 MG CAP ER PO SCH (08:53)
[2018-01-29] MEDS: GABAPENTIN 300 MG CAPSULE PO SCH ×3 (08:53→21:29)
[2018-01-29] MEDS: CETIRIZINE 10 MG TABLET PO SCH (08:53)
[2018-01-29] MEDS: FLUTICASONE/VILANTEROL 200-25MCG/INH INH SCH (08:57)
[2018-01-29] MEDS: FLUTICASONE NASAL SPRAY 16GM NAS SCH (08:57)
[2018-01-29] MEDS: FOLIC ACID 1 MG TABLET PO SCH (08:57)
[2018-01-29 09:02] VITALS: BP 136/83
[2018-01-29] MEDS: LISINOPRIL 10 MG TABLET PO SCH (09:07)
[2018-01-29] MEDS: DILTIAZEM 240 MG CAP.ER.24H PO SCH (09:07)
[2018-01-29 12:43] VITALS: BP 120/76
[2018-01-29] MEDS ORDERED: [UNRECOGNIZED DRUG - REMARK] MC SCH (14:30)
[2018-01-29] MEDS: SODIUM CHLORIDE 0.9% IV SCH ×2 (15:33→23:24)
[2018-01-29] MEDS: ACYCLOVIR IV SCH ×2 (15:33→23:24)
[2018-01-29 21:26] VITALS: BP 131/76
[2018-01-29] MEDS: SIMVASTATIN 20 MG TABLET PO SCH (21:29)
[2018-01-30 02:58] VITALS: BP 118/75
[2018-01-30] MEDS: OxyconTIN ER 20 MG TAB.ER PO SCH ×2 (03:19→16:35)
[2018-01-30 07:30] VITALS: BP 146/88
[2018-01-30] MEDS: ACYCLOVIR IV SCH ×2 (08:57→16:35)
[2018-01-30] MEDS: FLUTICASONE/VILANTEROL 200-25MCG/INH INH SCH (08:57)
[2018-01-30] MEDS: SODIUM CHLORIDE 0.9% IV SCH ×2 (08:57→16:35)
[2018-01-30] MEDS: FLUTICASONE NASAL SPRAY 16GM NAS SCH (08:57)
[2018-01-30] MEDS: VENLAFAXINE 75 MG CAP ER PO SCH (09:00)
[2018-01-30] MEDS: ASPIRIN 81 MG TABLET EC PO SCH (09:00)
[2018-01-30] MEDS: CALCIUM/VITAMIN D3 250-125 TABLET PO SCH ×2 (09:01→21:31)
[2018-01-30] MEDS: MAGNESIUM OXIDE 400 MG TABLET PO SCH (09:01)
[2018-01-30] MEDS: LISINOPRIL 10 MG TABLET PO SCH (09:02)
[2018-01-30] MEDS: CETIRIZINE 10 MG TABLET PO SCH (09:02)
[2018-01-30] MEDS: GABAPENTIN 300 MG CAPSULE PO SCH ×3 (09:03→21:30)
[2018-01-30] MEDS: DILTIAZEM 240 MG CAP.ER.24H PO SCH (09:04)
[2018-01-30] MEDS: MONTELUKAST 10 MG TABLET PO SCH (09:04)
[2018-01-30] MEDS: MULTIVITAMIN 1 TABLET PO SCH (09:05)
[2018-01-30] MEDS: FOLIC ACID 1 MG TABLET PO SCH (09:06)
[2018-01-30] MEDS: APIXABAN 5 MG TABLET PO SCH ×2 (09:06→21:30)
[2018-01-30 13:50] VITALS: BP 127/76
[2018-01-30] MEDS: SODIUM CHLORIDE 0.9% 1,000 ML IV SCH (15:00)
[2018-01-30 20:33] VITALS: BP 137/79
[2018-01-30] MEDS: SIMVASTATIN 20 MG TABLET PO SCH (21:31)
[2018-01-31] MEDS: OXYcodone/APAP 5/325MG TABLET PO PRN ×2 (00:10→23:17)
[2018-01-31] MEDS: SODIUM CHLORIDE 0.9% IV SCH ×4 (00:13→23:17)
[2018-01-31] MEDS: ACYCLOVIR IV SCH ×4 (00:13→23:17)
[2018-01-31 00:30] VITALS: BP 123/77
[2018-01-31 06:29] LABS: ANION GAP 5 mmol/L (5-15); CALCIUM 8.4 mg/dL (8.5-10.1); CHLORIDE 103 mmol/L (98-107)
[2018-01-31 07:20] VITALS: BP 138/84
[2018-01-31] MEDS: VENLAFAXINE 75 MG CAP ER PO SCH (09:00)
[2018-01-31] MEDS: MONTELUKAST 10 MG TABLET PO SCH (09:43)
[2018-01-31] MEDS: ASPIRIN 81 MG TABLET EC PO SCH (09:43)
[2018-01-31] MEDS: GABAPENTIN 300 MG CAPSULE PO SCH ×3 (09:43→20:26)
[2018-01-31] MEDS: APIXABAN 5 MG TABLET PO SCH ×2 (09:44→20:26)
[2018-01-31] MEDS: FOLIC ACID 1 MG TABLET PO SCH (09:44)
[2018-01-31] MEDS: CETIRIZINE 10 MG TABLET PO SCH (09:44)
[2018-01-31] MEDS: LISINOPRIL 10 MG TABLET PO SCH (09:44)
[2018-01-31] MEDS: DILTIAZEM 240 MG CAP.ER.24H PO SCH (09:45)
[2018-01-31] MEDS: CALCIUM/VITAMIN D3 250-125 TABLET PO SCH ×2 (09:46→20:25)
[2018-01-31] MEDS: FLUTICASONE/VILANTEROL 200-25MCG/INH INH SCH (09:46)
[2018-01-31] MEDS: MULTIVITAMIN 1 TABLET PO SCH (09:46)
[2018-01-31] MEDS: MAGNESIUM OXIDE 400 MG TABLET PO SCH (09:46)
[2018-01-31] MEDS: OxyconTIN ER 20 MG TAB.ER PO SCH ×2 (09:46→20:25)
[2018-01-31] MEDS: FLUTICASONE NASAL SPRAY 16GM NAS SCH (09:47)
[2018-01-31] MEDS: SODIUM CHLORIDE 0.9% 1,000 ML IV SCH (11:00)
[2018-01-31] MEDS ORDERED: SODIUM CHLORIDE 0.9% 500 ML IV SCH ×2 (11:00)
[2018-01-31 13:47] VITALS: BP 130/74
[2018-01-31 19:44] VITALS: BP 128/67
[2018-01-31] MEDS: SIMVASTATIN 20 MG TABLET PO SCH (20:26)
[2018-02-01 03:35] VITALS: BP 125/76
[2018-02-01 05:40] LABS: BASOPHILS # (AUTO) 0.04 x10^3/uL (0-0.1); BASOPHILS % (AUTO) 1 % (0-1); EOSINOPHILS # (AUTO) 0.18 x10^3/uL (0-0.4); EOSINOPHILS % (AUTO) 3 % (1-7); LYMPHOCYTES # (AUTO) 1.39 x10^3/uL (1-3.4); LYMPHOCYTES % (AUTO) 23 % (22-44); MD NO; MEAN CORPUSCULAR HEMOGLOBIN 30.3 pg (27.0-34.8); MEAN CORPUSCULAR HGB CONC 33.2 g/dL (32.4-35.8); MEAN CORPUSCULAR VOLUME 91.2 fL (80-100); MEAN PLATELET VOLUME 7.4 fL (7.4-10.4); MONOCYTES # (AUTO) 0.42 x10^3/uL (0.2-0.8); MONOCYTES % (AUTO) 7 % (2-9); NEUTROPHILS # (AUTO) 4.03 x10^3/uL (1.8-6.8); NEUTROPHILS % (AUTO) 67 % (42-75); PLATELET COUNT 259 x10^3/uL (130-400); RED BLOOD COUNT 3.52 x10^6/uL (3.82-5.3); RED CELL DISTRIBUTION WIDTH 16.6 % (9.6-15.2)
[2018-02-01 05:45] LABS: ANION GAP 7 mmol/L (5-15); CALCIUM 8.1 mg/dL (8.5-10.1); CHLORIDE 104 mmol/L (98-107); CREATININE 0.87 mg/dL (0.55-1.02)
[2018-02-01] MEDS: ASPIRIN 81 MG TABLET EC PO SCH (08:22)
[2018-02-01] MEDS: APIXABAN 5 MG TABLET PO SCH ×2 (08:22→20:02)
[2018-02-01] MEDS: OxyconTIN ER 20 MG TAB.ER PO SCH ×2 (08:22→20:01)
[2018-02-01] MEDS: CALCIUM/VITAMIN D3 250-125 TABLET PO SCH ×2 (08:23→20:02)
[2018-02-01] MEDS: FOLIC ACID 1 MG TABLET PO SCH (08:23)
[2018-02-01] MEDS: MULTIVITAMIN 1 TABLET PO SCH (08:23)
[2018-02-01] MEDS: GABAPENTIN 300 MG CAPSULE PO SCH ×3 (08:23→20:02)
[2018-02-01] MEDS: MAGNESIUM OXIDE 400 MG TABLET PO SCH (08:23)
[2018-02-01] MEDS: CETIRIZINE 10 MG TABLET PO SCH (08:24)
[2018-02-01] MEDS: LISINOPRIL 10 MG TABLET PO SCH (08:24)
[2018-02-01] MEDS: MONTELUKAST 10 MG TABLET PO SCH (08:24)
[2018-02-01 08:28] VITALS: BP 139/79
[2018-02-01] MEDS: SODIUM CHLORIDE 0.9% IV SCH ×2 (08:31→16:09)
[2018-02-01] MEDS: ACYCLOVIR IV SCH ×2 (08:31→16:09)
[2018-02-01] MEDS: VENLAFAXINE 75 MG CAP ER PO SCH (08:35)
[2018-02-01] MEDS: FLUTICASONE/VILANTEROL 200-25MCG/INH INH SCH (08:35)
[2018-02-01] MEDS: FLUTICASONE NASAL SPRAY 16GM NAS SCH (08:35)
[2018-02-01] MEDS: DILTIAZEM 240 MG CAP.ER.24H PO SCH (08:37)
[2018-02-01] MEDS: SODIUM CHLORIDE 0.9% 1,000 ML IV SCH (08:44)
[2018-02-01 14:00] VITALS: BP 117/65
[2018-02-01] MEDS: OXYcodone/APAP 5/325MG TABLET PO PRN ×3 (14:55→20:10)
[2018-02-01 19:38] VITALS: BP 110/71
[2018-02-01] MEDS: SIMVASTATIN 20 MG TABLET PO SCH (20:02)
[2018-02-02 00:13] VITALS: BP 133/83
[2018-02-02] MEDS: OXYcodone/APAP 5/325MG TABLET PO PRN ×4 (00:15→21:35)
[2018-02-02] MEDS: ACYCLOVIR IV SCH ×4 (00:21→23:51)
[2018-02-02] MEDS: SODIUM CHLORIDE 0.9% IV SCH ×4 (00:21→23:51)
[2018-02-02] MEDS: SODIUM CHLORIDE 0.9% 1,000 ML IV SCH (01:00)
[2018-02-02 05:12] LABS: ALBUMIN 2.8 g/dL (3.4-5.0); ANION GAP 8 mmol/L (5-15); CALCIUM 8.5 mg/dL (8.5-10.1); CHLORIDE 104 mmol/L (98-107); CREATININE 0.98 mg/dL (0.55-1.02)
[2018-02-02 05:20] LABS: BASOPHILS # (AUTO) 0.05 x10^3/uL (0-0.1); BASOPHILS % (AUTO) 1 % (0-1); EOSINOPHILS # (AUTO) 0.28 x10^3/uL (0-0.4); EOSINOPHILS % (AUTO) 3 % (1-7); LYMPHOCYTES % (AUTO) 14 % (22-44); MD NO; MEAN CORPUSCULAR HGB CONC 32.8 g/dL (32.4-35.8); MEAN CORPUSCULAR VOLUME 91.4 fL (80-100); MONOCYTES # (AUTO) 0.57 x10^3/uL (0.2-0.8); MONOCYTES % (AUTO) 6 % (2-9); NEUTROPHILS # (AUTO) 7.64 x10^3/uL (1.8-6.8); NEUTROPHILS % (AUTO) 77 % (42-75); PLATELET COUNT 283 x10^3/uL (130-400); RED BLOOD COUNT 3.68 x10^6/uL (3.82-5.3); RED CELL DISTRIBUTION WIDTH 17.4 % (9.6-15.2)
[2018-02-02 07:38] VITALS: BP 129/81
[2018-02-02] MEDS: OxyconTIN ER 20 MG TAB.ER PO SCH ×2 (07:59→19:45)
[2018-02-02] MEDS: FLUTICASONE/VILANTEROL 200-25MCG/INH INH SCH (08:00)
[2018-02-02] MEDS: FLUTICASONE NASAL SPRAY 16GM NAS SCH (08:00)
[2018-02-02] MEDS: VENLAFAXINE 75 MG CAP ER PO SCH (08:01)
[2018-02-02] MEDS: ASPIRIN 81 MG TABLET EC PO SCH (08:01)
[2018-02-02] MEDS: APIXABAN 5 MG TABLET PO SCH ×2 (08:01→21:35)
[2018-02-02] MEDS: DILTIAZEM 240 MG CAP.ER.24H PO SCH (08:01)
[2018-02-02] MEDS: FOLIC ACID 1 MG TABLET PO SCH (08:02)
[2018-02-02] MEDS: GABAPENTIN 300 MG CAPSULE PO SCH ×3 (08:02→21:35)
[2018-02-02] MEDS: MULTIVITAMIN 1 TABLET PO SCH (08:02)
[2018-02-02] MEDS: MAGNESIUM OXIDE 400 MG TABLET PO SCH (08:02)
[2018-02-02] MEDS: LISINOPRIL 10 MG TABLET PO SCH (08:03)
[2018-02-02] MEDS: MONTELUKAST 10 MG TABLET PO SCH (08:03)
[2018-02-02] MEDS: CALCIUM/VITAMIN D3 250-125 TABLET PO SCH ×2 (08:03→21:34)
[2018-02-02] MEDS: CETIRIZINE 10 MG TABLET PO SCH (08:03)
[2018-02-02 13:46] VITALS: BP 124/75
[2018-02-02 19:40] VITALS: BP 156/78
[2018-02-02] MEDS: SIMVASTATIN 20 MG TABLET PO SCH (21:36)
[2018-02-03 00:23] VITALS: BP 120/63
[2018-02-03] MEDS: OXYcodone/APAP 5/325MG TABLET PO PRN ×3 (05:00→17:02)
[2018-02-03 05:45] LABS: ALBUMIN 2.8 g/dL (3.4-5.0); CALCIUM 8.7 mg/dL (8.5-10.1); CHLORIDE 105 mmol/L (98-107)
[2018-02-03 05:48] LABS: ANION GAP 5 mmol/L (5-15)
[2018-02-03 07:31] VITALS: BP 149/79
[2018-02-03] MEDS: SODIUM CHLORIDE 0.9% IV SCH ×2 (07:45→16:19)
[2018-02-03] MEDS: ACYCLOVIR IV SCH ×2 (07:45→16:19)
[2018-02-03] MEDS: OxyconTIN ER 20 MG TAB.ER PO SCH ×2 (07:46→19:40)
[2018-02-03] MEDS: FLUTICASONE/VILANTEROL 200-25MCG/INH INH SCH (07:46)
[2018-02-03] MEDS: CETIRIZINE 10 MG TABLET PO SCH (07:46)
[2018-02-03] MEDS: GABAPENTIN 300 MG CAPSULE PO SCH ×3 (07:46→21:23)
[2018-02-03] MEDS: DILTIAZEM 240 MG CAP.ER.24H PO SCH (07:46)
[2018-02-03] MEDS: FLUTICASONE NASAL SPRAY 16GM NAS SCH (07:46)
[2018-02-03] MEDS: MONTELUKAST 10 MG TABLET PO SCH (07:46)
[2018-02-03] MEDS: CALCIUM/VITAMIN D3 250-125 TABLET PO SCH ×2 (07:46→21:23)
[2018-02-03] MEDS: MULTIVITAMIN 1 TABLET PO SCH (07:47)
[2018-02-03] MEDS: LISINOPRIL 10 MG TABLET PO SCH (07:47)
[2018-02-03] MEDS: ASPIRIN 81 MG TABLET EC PO SCH (07:47)
[2018-02-03] MEDS: FOLIC ACID 1 MG TABLET PO SCH (07:47)
[2018-02-03] MEDS: APIXABAN 5 MG TABLET PO SCH ×2 (07:47→21:23)
[2018-02-03] MEDS: MAGNESIUM OXIDE 400 MG TABLET PO SCH (07:47)
[2018-02-03] MEDS: VENLAFAXINE 75 MG CAP ER PO SCH (07:48)
[2018-02-03] MEDS: SODIUM CHLORIDE 0.9% 1,000 ML IV SCH ×2 (09:19→16:19)
[2018-02-03 12:54] VITALS: BP 141/82
[2018-02-03 20:34] VITALS: BP 128/75
[2018-02-03] MEDS: SIMVASTATIN 20 MG TABLET PO SCH (21:23)
[2018-02-04] MEDS: ACYCLOVIR IV SCH ×3 (00:06→17:54)
[2018-02-04] MEDS: SODIUM CHLORIDE 0.9% IV SCH ×3 (00:06→17:54)
[2018-02-04] MEDS: OXYcodone/APAP 5/325MG TABLET PO PRN (00:15)
[2018-02-04 02:26] VITALS: BP 169/80
[2018-02-04] MEDS: SODIUM CHLORIDE 0.9% 1,000 ML IV SCH ×3 (03:29→20:15)
[2018-02-04 05:35] LABS: ALBUMIN 2.7 g/dL (3.4-5.0); ANION GAP 7 mmol/L (5-15); CALCIUM 8.1 mg/dL (8.5-10.1); CHLORIDE 106 mmol/L (98-107); CREATININE 1.02 mg/dL (0.55-1.02)
[2018-02-04 05:38] LABS: BASOPHILS # (AUTO) 0.09 x10^3/uL (0-0.1); BASOPHILS % (AUTO) 1 % (0-1); EOSINOPHILS # (AUTO) 0.23 x10^3/uL (0-0.4); EOSINOPHILS % (AUTO) 3 % (1-7); LYMPHOCYTES # (AUTO) 1.35 x10^3/uL (1-3.4); LYMPHOCYTES % (AUTO) 17 % (22-44); MD NO; MEAN CORPUSCULAR HEMOGLOBIN 30.6 pg (27.0-34.8); MEAN CORPUSCULAR VOLUME 92.8 fL (80-100); MEAN PLATELET VOLUME 7.4 fL (7.4-10.4); MONOCYTES # (AUTO) 0.49 x10^3/uL (0.2-0.8); MONOCYTES % (AUTO) 6 % (2-9); NEUTROPHILS # (AUTO) 5.64 x10^3/uL (1.8-6.8); NEUTROPHILS % (AUTO) 72 % (42-75); PLATELET COUNT 261 x10^3/uL (130-400); RED BLOOD COUNT 3.29 x10^6/uL (3.82-5.3); RED CELL DISTRIBUTION WIDTH 16.9 % (9.6-15.2)
[2018-02-04 07:02] VITALS: BP 156/83
[2018-02-04] MEDS: FLUTICASONE NASAL SPRAY 16GM NAS SCH (08:11)
[2018-02-04] MEDS: FLUTICASONE/VILANTEROL 200-25MCG/INH INH SCH (08:11)
[2018-02-04] MEDS: DILTIAZEM 240 MG CAP.ER.24H PO SCH (08:13)
[2018-02-04] MEDS: VENLAFAXINE 75 MG CAP ER PO SCH (08:13)
[2018-02-04] MEDS: MAGNESIUM OXIDE 400 MG TABLET PO SCH (08:13)
[2018-02-04] MEDS: OxyconTIN ER 20 MG TAB.ER PO SCH ×2 (08:13→20:16)
[2018-02-04] MEDS: APIXABAN 5 MG TABLET PO SCH ×2 (08:13→20:16)
[2018-02-04] MEDS: CETIRIZINE 10 MG TABLET PO SCH (08:14)
[2018-02-04] MEDS: ASPIRIN 81 MG TABLET EC PO SCH (08:14)
[2018-02-04] MEDS: ERGOCALCIFEROL 50,000 UNIT CAPSULE PO SCH (08:14)
[2018-02-04] MEDS: MONTELUKAST 10 MG TABLET PO SCH (08:14)
[2018-02-04] MEDS: LISINOPRIL 10 MG TABLET PO SCH (08:14)
[2018-02-04] MEDS: MULTIVITAMIN 1 TABLET PO SCH (08:14)
[2018-02-04] MEDS: GABAPENTIN 300 MG CAPSULE PO SCH ×3 (08:14→20:16)
[2018-02-04] MEDS: CALCIUM/VITAMIN D3 250-125 TABLET PO SCH ×2 (08:14→20:16)
[2018-02-04] MEDS: FOLIC ACID 1 MG TABLET PO SCH (08:15)
[2018-02-04 12:41] VITALS: BP 136/68
[2018-02-04] MEDS: SIMVASTATIN 20 MG TABLET PO SCH (20:16)
[2018-02-04 20:22] VITALS: BP 167/85
[2018-02-05] MEDS: ACYCLOVIR IV SCH ×2 (01:57→11:24)
[2018-02-05] MEDS: SODIUM CHLORIDE 0.9% IV SCH ×2 (01:57→11:24)
[2018-02-05] MEDS: SODIUM CHLORIDE 0.9% 1,000 ML IV SCH ×2 (01:57→10:57)
[2018-02-05 02:00] VITALS: BP 150/92
[2018-02-05] MEDS: OXYcodone/APAP 5/325MG TABLET PO PRN (02:09)
[2018-02-05] MEDS: FLUTICASONE NASAL SPRAY 16GM NAS SCH (07:31)
[2018-02-05] MEDS: VENLAFAXINE 75 MG CAP ER PO SCH (07:31)
[2018-02-05] MEDS: FLUTICASONE/VILANTEROL 200-25MCG/INH INH SCH (07:31)
[2018-02-05] MEDS: APIXABAN 5 MG TABLET PO SCH (07:31)
[2018-02-05] MEDS: MONTELUKAST 10 MG TABLET PO SCH (07:32)
[2018-02-05] MEDS: OxyconTIN ER 20 MG TAB.ER PO SCH (07:32)
[2018-02-05] MEDS: ASPIRIN 81 MG TABLET EC PO SCH (07:32)
[2018-02-05] MEDS: DILTIAZEM 240 MG CAP.ER.24H PO SCH (07:32)
[2018-02-05] MEDS: MULTIVITAMIN 1 TABLET PO SCH (07:32)
[2018-02-05] MEDS: LISINOPRIL 10 MG TABLET PO SCH (07:32)
[2018-02-05] MEDS: CALCIUM/VITAMIN D3 250-125 TABLET PO SCH (07:32)
[2018-02-05] MEDS: FOLIC ACID 1 MG TABLET PO SCH (07:32)
[2018-02-05] MEDS: CETIRIZINE 10 MG TABLET PO SCH (07:33)
[2018-02-05] MEDS: GABAPENTIN 300 MG CAPSULE PO SCH (07:33)
[2018-02-05] MEDS: MAGNESIUM OXIDE 400 MG TABLET PO SCH (07:33)
[2018-02-05 08:07] VITALS: BP 179/114
[2018-02-05] MEDS ORDERED: VALA1000 PO (11:14)
[2018-02-05] MEDS ORDERED: ERGO500017 PO (11:14)
[2018-02-05] MEDS ORDERED: GABA300C10 PO (11:14)
[2018-02-05] MEDS ORDERED: ASPI-496 PO (11:14)
== END 2018-02-05 14:57 | disposition home or self-care (01) | DRG 871 ==
LOC: ED 11:50 → EDIP 12:57 → 4EST 13:40
PROVIDERS: ADMIT Internal Medicine; ATTEND Internal Medicine
DX: A41.9 Sepsis, unspecified organism (principal); E43 Unspecified severe protein-calorie malnutrition; J96.10 Chronic respiratory failure, unspecified whether with hypoxia or hypercapnia; D68.69 Other thrombophilia; I13.0 Hypertensive heart and chronic kidney disease with heart failure and stage 1 through stage 4 chronic kidney disease, or unspecified chronic kidney disease; B02.9 Zoster without complications; I48.91 Unspecified atrial fibrillation; I50.32 Chronic diastolic (congestive) heart failure; E66.01 Morbid (severe) obesity due to excess calories; F11.20 Opioid dependence, uncomplicated; L03.113 Cellulitis of right upper limb; Z68.43 Body mass index [BMI] 50.0-59.9, adult; Z99.81 Dependence on supplemental oxygen; N18.3 Chronic kidney disease, stage 3 (moderate); M06.9 Rheumatoid arthritis, unspecified; E78.5 Hyperlipidemia, unspecified; I25.10 Atherosclerotic heart disease of native coronary artery without angina pectoris; K21.9 Gastro-esophageal reflux disease without esophagitis; E55.9 Vitamin D deficiency, unspecified; D64.9 Anemia, unspecified; E78.00 Pure hypercholesterolemia, unspecified; F32.9 Major depressive disorder, single episode, unspecified; G47.33 Obstructive sleep apnea (adult) (pediatric); G89.4 Chronic pain syndrome; J44.9 Chronic obstructive pulmonary disease, unspecified; R53.82 Chronic fatigue, unspecified; Z79.01 Long term (current) use of anticoagulants; Z79.52 Long term (current) use of systemic steroids; Z82.49 Family history of ischemic heart disease and other diseases of the circulatory system; Z86.711 Personal history of pulmonary embolism
CPT/HCPCS: 36415; 71045; 80048; 80053; 81003; 82040; 82306; 82550; 83605; 83735; 84145; 85025; 85610; 85651; 87040; 93005; J0133; J2543; J7030; J7040; J7050; J7512

== ENCOUNTER → 2018-08-27 | Outpatient (CLI) | payer MEDICARE, OTHER ==
[~2018-08-27] MED LIST changes: +GABA300C10 PO; -SENN1TAB7 PO; +SENN1TAB8 PO; +VALA1000 PO
== END | disposition home or self-care (01) ==
LOC: CFH 08:24
PROVIDERS: ATTEND Nurse Practitioner Family
DX: Z12.31 Encounter for screening mammogram for malignant neoplasm of breast (principal); Z13.820 Encounter for screening for osteoporosis; M81.0 Age-related osteoporosis without current pathological fracture; N95.9 Unspecified menopausal and perimenopausal disorder
CPT/HCPCS: 77063; 77080; 77067

== ENCOUNTER → 2018-09-16 | Outpatient (CLI) | payer MEDICARE, OTHER | END | disposition home or self-care (01) | LOC: CFH 13:26 | PROVIDERS: ATTEND Nurse Practitioner Family | DX: N63.11 Unspecified lump in the right breast, upper outer quadrant (principal) | CPT/HCPCS: 77065 ==

== ENCOUNTER 2018-10-26 15:42 | Emergency (ER) | payer MEDICARE ==
[~2018-10-26] VITALS: Ht 157.5 cm; Wt 128.3 kg
--- NOTE | 2018-10-26 15:55 | NUR ---
73 YR OLD FEMALE HERE WITH HER . PT FOUND TO BE ALTERED, NOT MAKING SENSE. PT REPEATS, "WHAT ARE YOU DOING? IS THIS A JOKE, THERE SOMETHING WRONG HER. I DONT KNOW WHAT IS GOING ON" PT STATES YEAR "1828[address], "I DONT KNOW, HELL TRIPP?"
--- NOTE | 2018-10-26 16:02 | NUR ---
Report from DIXON Begum. Patient oriented to self, but confused on date and place. Unable to follow commands. RN unable to complete neuro exam. Will continue to monitor.
[2018-10-26 16:03] LABS: BASOPHILS # (AUTO) 0.02 x10^3/uL (0-0.1); BASOPHILS % (AUTO) 0 % (0-1); EOSINOPHILS # (AUTO) 0.25 x10^3/uL (0-0.4); EOSINOPHILS % (AUTO) 4 % (1-7); LYMPHOCYTES % (AUTO) 28 % (22-44); MD NO; MEAN CORPUSCULAR HEMOGLOBIN 29.6 pg (27.0-34.8); MEAN CORPUSCULAR HGB CONC 32.4 g/dL (32.4-35.8); MEAN CORPUSCULAR VOLUME 91.6 fL (80-100); MEAN PLATELET VOLUME 8.1 fL (7.4-10.4); MONOCYTES # (AUTO) 0.42 x10^3/uL (0.2-0.8); MONOCYTES % (AUTO) 7 % (2-9); NEUTROPHILS # (AUTO) 3.98 x10^3/uL (1.8-6.8); NEUTROPHILS % (AUTO) 62 % (42-75); PLATELET COUNT 282 x10^3/uL (130-400); RED BLOOD COUNT 3.64 x10^6/uL (3.82-5.3); RED CELL DISTRIBUTION WIDTH 16.1 % (9.6-15.2)
[2018-10-26 16:18] LABS: ALANINE AMINOTRANSFERASE 17 U/L (12-78); ALBUMIN 3.4 g/dL (3.4-5.0); ANION GAP 7 mmol/L (5-15); CALCIUM 8.9 mg/dL (8.5-10.1); CHLORIDE 101 mmol/L (98-107); CREATININE 1.43 mg/dL (0.55-1.02)
[2018-10-26 16:20] LABS: ACETAMINOPHEN 3 mcg/mL (10-30); ALKALINE PHOSPHATASE 142 U/L (45-117); BILIRUBIN,TOTAL 0.4 mg/dL (0.2-1.0); TOTAL PROTEIN 6.5 g/dL (6.4-8.2)
[2018-10-26 16:23] LABS: SALICYLATE LEVEL < 1.7 mg/dL (2.8-20.0)
[2018-10-26] MEDS ORDERED: CITA20TA9 PO (16:27)
[2018-10-26] MEDS ORDERED: OXYC10TA72 PO (16:27)
[2018-10-26] MEDS ORDERED: LISI-170 PO (16:27)
[2018-10-26] MEDS ORDERED: OXYC5CAP2 PO (16:27)
[2018-10-26] MEDS ORDERED: GABA300C10 PO (16:27)
[2018-10-26] MEDS ORDERED: DULO20CA45 PO (16:27)
--- NOTE | 2018-10-26 16:37 | NUR ---
Urine sent to lab. Patient placed on bedpan. and son at bedside.
[2018-10-26 16:50] LABS: HEMOGLOBIN A1C 5.7 % (4.2-6.3)
[2018-10-26 17:01] LABS: MICROSCOPIC NOT IND
[2018-10-26 17:05] LABS: CULTURE INDICATED? NO
[2018-10-26 17:17] LABS: AMPHETAMINE SCREEN, URINE Negative (Negative); BARBITURATE SCREEN, URINE Negative (Negative); BENZODIAZEPINE SCREEN, URINE Negative (Negative); CANNABINOID SCREEN, URINE Negative (Negative); COCAINE SCREEN, URINE Negative (Negative); METHADONE SCREEN, URINE Negative (Negative); OPIATE SCREEN, URINE Positive (Negative)
--- NOTE | 2018-10-26 17:35 | NUR ---
Ambulated to the restroom. SBA with walker.
[2018-10-26 18:08] VITALS: BP 141/59
--- NOTE | 2018-10-26 18:09 | NUR ---
Ambulatory with a steady gait with walker from home.
--- NOTE | 2018-10-26 18:11 | NUR ---
Patient/Caregiver given discharge instructions and they have confirmed that they understand the instructions.
== END 2018-10-26 18:12 | disposition home or self-care (01) ==
LOC: ED 18:06
DX: R41.82 Altered mental status, unspecified (principal); I10 Essential (primary) hypertension; J44.9 Chronic obstructive pulmonary disease, unspecified; E78.00 Pure hypercholesterolemia, unspecified; I25.10 Atherosclerotic heart disease of native coronary artery without angina pectoris; R51 Headache; F32.9 Major depressive disorder, single episode, unspecified; Z87.891 Personal history of nicotine dependence
CPT/HCPCS: 36415; 70450; 71045; 80053; 80307; 80329; 81003; 82140; 83036; 85025; 93005; 99284; G0480

== ENCOUNTER 2019-03-28 09:10 | Outpatient (CLI) | payer MEDICARE ==
[~2019-03-28 09:10] MED LIST changes: +CITA20TA9 PO; +DULO20CA45 PO; +LISI-170 PO; +OXYC10TA72 PO; +OXYC5CAP2 PO; +SENN-177 PO; -SENN1TAB8 PO
== END 2019-03-28 23:59 | disposition home or self-care (01) ==
LOC: CFH 09:10
PROVIDERS: ATTEND Nurse Practitioner Family
DX: G31.9 Degenerative disease of nervous system, unspecified (principal); J32.0 Chronic maxillary sinusitis; R90.82 White matter disease, unspecified
CPT/HCPCS: 70450

== ENCOUNTER 2020-01-19 17:34 | Emergency (ER) | payer MEDICARE ==
[~2020-01-19] VITALS: Ht 157.5 cm; Wt 104.4 kg
[~2020-01-19 17:34] MED LIST changes: +ALLO100T30 PO; +BUDE10.22 INH; -DOXY100T10 PO; +DOXY100T23 PO; +LEFL20TA16 PO; +OXYC20TA42 PO; +ROPI0.25 PO; +SENN-193 PO; +SIMV20TA19 PO; -SIMV20TA3 PO; -VALA1000 PO; +VALA10007 PO; +VENL75TA PO
[2020-01-19] MEDS ORDERED: OXYcodone IR 5MG TABLET ONE (17:54)
[2020-01-19 17:57] LABS: BASOPHILS # (AUTO) 0.02 x10^3/uL (0-0.1); BASOPHILS % (AUTO) 0 % (0-1); EOSINOPHILS # (AUTO) 0.03 x10^3/uL (0-0.4); EOSINOPHILS % (AUTO) 0 % (1-7); LYMPHOCYTES # (AUTO) 0.97 x10^3/uL (1-3.4); LYMPHOCYTES % (AUTO) 14 % (22-44); MD NO; MEAN CORPUSCULAR HEMOGLOBIN 31.6 pg (27.0-34.8); MEAN CORPUSCULAR HGB CONC 33.3 g/dL (32.4-35.8); MEAN CORPUSCULAR VOLUME 94.9 fL (80-100); MEAN PLATELET VOLUME 8.3 fL (7.4-10.4); MONOCYTES # (AUTO) 0.67 x10^3/uL (0.2-0.8); MONOCYTES % (AUTO) 9 % (2-9); NEUTROPHILS # (AUTO) 5.49 x10^3/uL (1.8-6.8); NEUTROPHILS % (AUTO) 77 % (42-75); PLATELET COUNT 264 x10^3/uL (130-400); RED BLOOD COUNT 2.88 x10^6/uL (3.82-5.3)
[2020-01-19] MEDS ORDERED: OXYcodone IR 5MG TABLET PO ONE (18:00)
[2020-01-19] MEDS ORDERED: ROPINIROLE 1MG TABLET PO ONE (18:00)
[2020-01-19 18:12] LABS: ALBUMIN 2.7 g/dL (3.4-5.0); ANION GAP 8 mmol/L (5-15); CALCIUM 8.4 mg/dL (8.5-10.1); CHLORIDE 100 mmol/L (98-107); CREATININE 1.72 mg/dL (0.55-1.02)
--- NOTE | 2020-01-19 18:22 | NUR ---
pt in bed, sitting at edge, respirations even and unlabored, belongings in reach.
--- NOTE | 2020-01-19 19:10 | NUR ---
GAVE REPORT TO DIXON IRIZARRY. PT LAYING IN BED, RESPIRATIONS EVEN AND UNLABORED, NO SIGNS OF DESTRESS.
[2020-01-19 19:11] VITALS: BP 121/92
--- NOTE | 2020-01-19 19:11 | NUR ---
REPORT RECEIVED FROM DIXON BASSETT. PT RESTING ON [place], CALL LIGHT WITHIN REACH. REPORTS FAMILY IS ON THEIR WAY TO PICK HER UP.
== END 2020-01-19 19:29 | disposition home or self-care (01) ==
LOC: ED 19:17
DX: G25.81 Restless legs syndrome (principal); R00.0 Tachycardia, unspecified; I10 Essential (primary) hypertension; Z87.891 Personal history of nicotine dependence
CPT/HCPCS: 36415; 80048; 82040; 85025; 93005; 99284

== ENCOUNTER 2020-01-21 14:32 | Inpatient (IN) | payer MEDICARE ==
[~2020-01-21] VITALS: Ht 154.9 cm; Wt 103.6 kg
[2020-01-21] MEDS ORDERED: DIPH,PERTUSS(ACELL),TET VAC/PF 0.5 ML IM-VACC ONE ×2 (14:57→15:00)
[2020-01-21] MEDS ORDERED: SODIUM CHLORIDE 0.9% 1,000ML IVBOLUS ONE (15:00)
[2020-01-21] MEDS ORDERED: SODIUM CHLORIDE FLUSH 10ML SYR IVF ONE (15:00)
--- NOTE | 2020-01-21 15:05 | NUR ---
FLUIDS BEING ADMINISTERED PER EMAR. RN TO ADMINISTER VACCINE ONCE PT GETS BACK FROM CT SCAN.
--- NOTE | 2020-01-21 15:10 | NUR ---
PT TRANSPORTED TO CT.
[2020-01-21 15:22] LABS: ALBUMIN 2.7 g/dL (3.4-5.0); ANION GAP 8 mmol/L (5-15); CALCIUM 8.5 mg/dL (8.5-10.1); CHLORIDE 99 mmol/L (98-107); CREATININE 1.57 mg/dL (0.55-1.02)
[2020-01-21] MEDS ORDERED: LIDOCAINE-MPF 1%, 5ML ONE ×2 (15:25→15:42)
[2020-01-21] MEDS ORDERED: LIDOCAINE 1%, 10ML INFIL ONE (15:30)
[2020-01-21 15:36] LABS: BASOPHILS # (AUTO) 0.01 x10^3/uL (0-0.1); BASOPHILS % (AUTO) 0 % (0-1); EOSINOPHILS # (AUTO) 0.02 x10^3/uL (0-0.4); EOSINOPHILS % (AUTO) 0 % (1-7); LYMPHOCYTES # (AUTO) 0.95 x10^3/uL (1-3.4); LYMPHOCYTES % (AUTO) 16 % (22-44); MD NO; MEAN CORPUSCULAR HEMOGLOBIN 31.6 pg (27.0-34.8); MEAN CORPUSCULAR HGB CONC 33.1 g/dL (32.4-35.8); MEAN CORPUSCULAR VOLUME 95.6 fL (80-100); MEAN PLATELET VOLUME 8.3 fL (7.4-10.4); MONOCYTES # (AUTO) 0.41 x10^3/uL (0.2-0.8); MONOCYTES % (AUTO) 7 % (2-9); NEUTROPHILS # (AUTO) 4.43 x10^3/uL (1.8-6.8); NEUTROPHILS % (AUTO) 76 % (42-75); PLATELET COUNT 263 x10^3/uL (130-400); RED BLOOD COUNT 2.76 x10^6/uL (3.82-5.3); RED CELL DISTRIBUTION WIDTH 15.9 % (9.6-15.2)
--- NOTE | 2020-01-21 15:40 | NUR ---
JAN CARRANZA AT BEDSIDE NUMBING RIGHT SIDE OF HEAD PRIOR TO [place].
--- NOTE | 2020-01-21 15:50 | NUR ---
RN INFORMED PT THAT A URINE SAMPLE IS NEEDED. PT STATES SHE "DOESN'T FEEL LIKE" SHE HAS TO GO AT THIS TIME. RN INFORMED PT TO LET HER KNOW WHEN SHE FEELS THE NEED. PT VERBALIZED UNDERSTANDING. CALL LIGHT AND PERSONAL BELONINGS WITHIN REACH. RN TO CONTINUE TO MONITOR.
--- NOTE | 2020-01-21 16:07 | NUR ---
REPORT TO DIXON ESPARZA. PT TO BE TRANSPORTED TO [facility].
[2020-01-21 16:25] VITALS: BP 105/67
[2020-01-21] MEDS ORDERED: SENNA/DOCUSATE TABLET PO PRN (16:30)
[2020-01-21] MEDS ORDERED: POTASSIUM CHLORIDE 20 MEQ TAB.ER.PRT PO ONE (16:30)
[2020-01-21] MEDS ORDERED: ONDANSETRON 2MG/ML, 2ML IVPush PRN (16:30)
[2020-01-21] MEDS ORDERED: ONDANSETRON ODT 4 MG PO PRN (16:30)
[2020-01-21] MEDS ORDERED: TEMPLATE NON-FORMULARY MED. (Budesonide/Formoterol Fumarate (Symbicort 80-4.5 Mcg Inhaler) HOMEINH PRN (16:30)
[2020-01-21] MEDS: SODIUM CHLORIDE 0.9% 1,000 ML IV SCH (16:59)
[2020-01-21] MEDS ORDERED: ALBUTEROL SULFATE 2.5 MG/3 ML NPPB PRN (17:00)
[2020-01-21 17:23] VITALS: BP 98/63
[2020-01-21 19:06] VITALS: BP_SYST 84; BP_SYST 88; BP_SYST 94; BP_DIAS 47; BP_DIAS 56
[2020-01-21 19:36] LABS: CULTURE INDICATED? YES; MICROSCOPIC INDICATED
[2020-01-21 19:58] VITALS: BP 106/67
[2020-01-21 19:59] VITALS: BP_SYST 107; BP_SYST 110; BP_DIAS 63; BP_DIAS 71
[2020-01-21] MEDS ORDERED: OxyconTIN ER 10 MG TAB.ER ONE (20:12)
[2020-01-21] MEDS: LACTOBACILLUS CHEW TABLET PO SCH (20:17)
[2020-01-21] MEDS: GABAPENTIN 300 MG CAPSULE PO SCH (20:17)
[2020-01-21] MEDS: ROPINIROLE 0.25MG TABLET PO SCH (20:17)
[2020-01-21] MEDS ORDERED: OxyconTIN ER 20 MG TAB.ER PO SCH (21:00)
[2020-01-21] MEDS: BUDESONIDE 0.5 MG/2 ML INHA NPPB SCH (21:10)
[2020-01-21] MEDS: ACETAMINOPHEN 325 MG TABLET PO PRN ×2 (22:39→22:40)
[2020-01-22] VITALS (7 sets, daily range): BP systolic 89–121; BP diastolic 55–69
[2020-01-22] MEDS ORDERED: OxyconTIN ER 10 MG TAB.ER ONE (05:47)
[2020-01-22] MEDS: OxyconTIN ER 20 MG TAB.ER PO SCH ×2 (05:53→14:36)
[2020-01-22 06:36] LABS: BASOPHILS # (AUTO) 0.02 x10^3/uL (0-0.1); BASOPHILS % (AUTO) 0 % (0-1); EOSINOPHILS # (AUTO) 0.15 x10^3/uL (0-0.4); EOSINOPHILS % (AUTO) 3 % (1-7); LYMPHOCYTES # (AUTO) 1.47 x10^3/uL (1-3.4); LYMPHOCYTES % (AUTO) 25 % (22-44); MD NO; MEAN CORPUSCULAR HEMOGLOBIN 31.3 pg (27.0-34.8); MEAN CORPUSCULAR VOLUME 94.8 fL (80-100); MEAN PLATELET VOLUME 7.9 fL (7.4-10.4); MONOCYTES # (AUTO) 0.41 x10^3/uL (0.2-0.8); MONOCYTES % (AUTO) 7 % (2-9); NEUTROPHILS # (AUTO) 3.85 x10^3/uL (1.8-6.8); NEUTROPHILS % (AUTO) 65 % (42-75); PLATELET COUNT 266 x10^3/uL (130-400); RED BLOOD COUNT 2.66 x10^6/uL (3.82-5.3); RED CELL DISTRIBUTION WIDTH 15.7 % (9.6-15.2)
[2020-01-22 06:47] LABS: ANION GAP 8 mmol/L (5-15); CALCIUM 8.2 mg/dL (8.5-10.1); CHLORIDE 105 mmol/L (98-107)
[2020-01-22 06:48] LABS: % IRON SATURATION 13 % (20-55); CREATININE 1.84 mg/dL (0.55-1.02); IRON LEVEL 31 mcg/dL (50-170); TOTAL IRON BINDING CAPACITY 243 mcg/dL (250-450)
[2020-01-22] MEDS: LEFLUNOMIDE 20 MG TABLET PO SCH (08:10)
[2020-01-22] MEDS: VENLAFAXINE 75MG TABLET PO SCH (08:10)
[2020-01-22] MEDS: LISINOPRIL 20 MG TABLET PO SCH (08:11)
[2020-01-22] MEDS: CITALOPRAM 20 MG TABLET PO SCH (08:11)
[2020-01-22] MEDS: PANTOPRAZOLE 40MG TABLET PO SCH (08:11)
[2020-01-22] MEDS: MONTELUKAST 10 MG TABLET PO SCH (08:11)
[2020-01-22] MEDS: GABAPENTIN 300 MG CAPSULE PO SCH ×3 (08:11→21:56)
[2020-01-22] MEDS: LACTOBACILLUS CHEW TABLET PO SCH ×3 (08:11→21:56)
[2020-01-22] MEDS: ALLOPURINOL 100 MG TABLET PO SCH (08:11)
[2020-01-22] MEDS: BUDESONIDE 0.5 MG/2 ML INHA NPPB SCH ×2 (11:25→19:57)
[2020-01-22] MEDS: ACETAMINOPHEN 325 MG TABLET PO PRN ×2 (11:54→21:56)
[2020-01-22] MEDS: ROPINIROLE 0.25MG TABLET PO SCH (21:56)
[2020-01-22] MEDS: SODIUM CHLORIDE 0.9% 1,000 ML IV SCH (21:58)
[2020-01-22] MEDS ORDERED: OXYCONTIN MC SCH (22:30)
[2020-01-22] MEDS ORDERED: OxyconTIN ER 10 MG TAB.ER PO SCH (22:45)
[2020-01-23 01:16] VITALS: BP 100/61
[2020-01-23] MEDS ORDERED: OxyconTIN ER 10 MG TAB.ER PO SCH (05:30)
[2020-01-23] MEDS ORDERED: OxyconTIN ER 20 MG TAB.ER PO SCH ×2 (05:30)
[2020-01-23 05:52] LABS: BASOPHILS # (AUTO) 0.02 x10^3/uL (0-0.1); BASOPHILS % (AUTO) 1 % (0-1); EOSINOPHILS # (AUTO) 0.13 x10^3/uL (0-0.4); EOSINOPHILS % (AUTO) 2 % (1-7); LYMPHOCYTES % (AUTO) 23 % (22-44); MD NO; MEAN CORPUSCULAR HEMOGLOBIN 31.5 pg (27.0-34.8); MEAN CORPUSCULAR VOLUME 95.6 fL (80-100); MEAN PLATELET VOLUME 7.8 fL (7.4-10.4); MONOCYTES % (AUTO) 6 % (2-9); NEUTROPHILS # (AUTO) 3.58 x10^3/uL (1.8-6.8); NEUTROPHILS % (AUTO) 69 % (42-75); PLATELET COUNT 274 x10^3/uL (130-400); RED BLOOD COUNT 2.57 x10^6/uL (3.82-5.3); RED CELL DISTRIBUTION WIDTH 15.7 % (9.6-15.2)
[2020-01-23 06:06] LABS: ANION GAP 7 mmol/L (5-15); CALCIUM 8.3 mg/dL (8.5-10.1); CHLORIDE 110 mmol/L (98-107); CREATININE 1.52 mg/dL (0.55-1.02)
[2020-01-23 07:24] VITALS: BP 94/60
[2020-01-23] MEDS: LISINOPRIL 20 MG TABLET PO SCH (09:00)
[2020-01-23] MEDS: PANTOPRAZOLE 40MG TABLET PO SCH (10:24)
[2020-01-23] MEDS: GABAPENTIN 300 MG CAPSULE PO SCH ×3 (10:24→21:11)
[2020-01-23] MEDS: VENLAFAXINE 75MG TABLET PO SCH (10:24)
[2020-01-23] MEDS: CITALOPRAM 20 MG TABLET PO SCH (10:24)
[2020-01-23] MEDS: MONTELUKAST 10 MG TABLET PO SCH (10:24)
[2020-01-23] MEDS: ALLOPURINOL 100 MG TABLET PO SCH (10:24)
[2020-01-23] MEDS: LACTOBACILLUS CHEW TABLET PO SCH ×3 (10:24→21:11)
[2020-01-23] MEDS: LEFLUNOMIDE 20 MG TABLET PO SCH (10:28)
[2020-01-23] MEDS ORDERED: IRON DEXTRAN COMPLEX 0 MG in SODIUM CHLORIDE 0.9% 250 ML IV ONE (11:00)
[2020-01-23] MEDS ORDERED: IRON DEXTRAN COMPLEX 25 MG in SODIUM CHLORIDE 0.9% 50 ML IV ONE (11:00)
[2020-01-23] MEDS: BUDESONIDE 0.5 MG/2 ML INHA NPPB SCH ×2 (11:05→20:56)
[2020-01-23] MEDS: ACETAMINOPHEN 325 MG TABLET PO PRN (11:49)
[2020-01-23] MEDS ORDERED: EPINEPHRINE 1 MG/ML, 1ML SQ PRN ×2 (12:00→12:30)
[2020-01-23] MEDS: OXYcodone IR 5MG TABLET PO PRN ×2 (13:20→21:12)
[2020-01-23 14:54] VITALS: BP 98/47
[2020-01-23] MEDS ORDERED: IRON DEXTRAN COMPLEX 1,400 MG in SODIUM CHLORIDE 0.9% 250 ML IV ONE ×2 (15:00→16:15)
[2020-01-23] MEDS ORDERED: CEFDINIR 300 MG CAPSULE PO SCH (15:30)
[2020-01-23] MEDS ORDERED: PHARMACY MAY ADJ FOR RENAL FX MC PRN (15:30)
[2020-01-23 16:48] LABS: ANION GAP 6 mmol/L (5-15); CALCIUM 8.3 mg/dL (8.5-10.1); CHLORIDE 108 mmol/L (98-107); CREATININE 1.35 mg/dL (0.55-1.02)
[2020-01-23 19:36] VITALS: BP 139/67
[2020-01-23] MEDS ORDERED: ROPINIROLE 1MG TABLET PO SCH (21:00)
[2020-01-23] MEDS: APIXABAN 5 MG TABLET PO SCH (21:11)
[2020-01-23] MEDS: SODIUM CHLORIDE 0.9% 1,000 ML IV SCH (22:39)
[2020-01-24 01:33] VITALS: BP 145/73
[2020-01-24 06:44] LABS: BASOPHILS # (AUTO) 0.02 x10^3/uL (0-0.1); BASOPHILS % (AUTO) 0 % (0-1); EOSINOPHILS # (AUTO) 0.13 x10^3/uL (0-0.4); EOSINOPHILS % (AUTO) 2 % (1-7); LYMPHOCYTES # (AUTO) 1.18 x10^3/uL (1-3.4); LYMPHOCYTES % (AUTO) 21 % (22-44); MD NO; MEAN CORPUSCULAR HEMOGLOBIN 31.7 pg (27.0-34.8); MEAN CORPUSCULAR HGB CONC 33.5 g/dL (32.4-35.8); MEAN CORPUSCULAR VOLUME 94.7 fL (80-100); MEAN PLATELET VOLUME 7.2 fL (7.4-10.4); MONOCYTES # (AUTO) 0.36 x10^3/uL (0.2-0.8); MONOCYTES % (AUTO) 6 % (2-9); NEUTROPHILS # (AUTO) 3.96 x10^3/uL (1.8-6.8); NEUTROPHILS % (AUTO) 70 % (42-75); PLATELET COUNT 327 x10^3/uL (130-400); RED BLOOD COUNT 2.64 x10^6/uL (3.82-5.3); RED CELL DISTRIBUTION WIDTH 15.7 % (9.6-15.2)
[2020-01-24 07:34] VITALS: BP 161/78
[2020-01-24] MEDS ORDERED: FERROUS SULFATE 325 MG TABLET PO SCH (08:00)
[2020-01-24] MEDS: GABAPENTIN 300 MG CAPSULE PO SCH (08:59)
[2020-01-24] MEDS: VENLAFAXINE 75MG TABLET PO SCH (08:59)
[2020-01-24] MEDS: ALLOPURINOL 100 MG TABLET PO SCH (08:59)
[2020-01-24] MEDS: APIXABAN 5 MG TABLET PO SCH (08:59)
[2020-01-24] MEDS: LACTOBACILLUS CHEW TABLET PO SCH (08:59)
[2020-01-24] MEDS: MONTELUKAST 10 MG TABLET PO SCH (08:59)
[2020-01-24] MEDS: CITALOPRAM 20 MG TABLET PO SCH (08:59)
[2020-01-24] MEDS: BUDESONIDE 0.5 MG/2 ML INHA NPPB SCH (09:00)
[2020-01-24] MEDS: PANTOPRAZOLE 40MG TABLET PO SCH (09:00)
[2020-01-24] MEDS ORDERED: DILTIAZEM 240 MG CAP.ER.24H PO SCH (09:00)
[2020-01-24] MEDS: LISINOPRIL 20 MG TABLET PO SCH (09:01)
[2020-01-24] MEDS: LEFLUNOMIDE 20 MG TABLET PO SCH (09:04)
[2020-01-24 10:41] VITALS: BP 116/66
[2020-01-24] MEDS: OXYcodone IR 5MG TABLET PO PRN (11:21)
[2020-01-24] MEDS ORDERED: CEFD300C37 PO (11:31)
[2020-01-24] MEDS ORDERED: FERR-51 PO (11:31)
[2020-01-24 13:18] VITALS: BP 125/73
[2020-01-26] MEDS ORDERED: ERGOCALCIFEROL 50,000 UNIT CAPSULE PO SCH (09:00)
== END 2020-01-24 15:00 | disposition home or self-care (01) | DRG 314 ==
LOC: ED 14:44 → EDIP 15:45 → 4EST 16:15
PROVIDERS: ADMIT Internal Medicine; ATTEND Internal Medicine
DX: I95.9 Hypotension, unspecified (principal); E43 Unspecified severe protein-calorie malnutrition; R65.11 Systemic inflammatory response syndrome (SIRS) of non-infectious origin with acute organ dysfunction; E87.1 Hypo-osmolality and hyponatremia; I50.32 Chronic diastolic (congestive) heart failure; I13.0 Hypertensive heart and chronic kidney disease with heart failure and stage 1 through stage 4 chronic kidney disease, or unspecified chronic kidney disease; J96.10 Chronic respiratory failure, unspecified whether with hypoxia or hypercapnia; N39.0 Urinary tract infection, site not specified; Z68.41 Body mass index [BMI] 40.0-44.9, adult; N17.9 Acute kidney failure, unspecified; E86.0 Dehydration; J44.9 Chronic obstructive pulmonary disease, unspecified; I25.10 Atherosclerotic heart disease of native coronary artery without angina pectoris; F32.9 Major depressive disorder, single episode, unspecified; E78.00 Pure hypercholesterolemia, unspecified; M06.9 Rheumatoid arthritis, unspecified; E87.6 Hypokalemia; D64.9 Anemia, unspecified; E66.01 Morbid (severe) obesity due to excess calories; D50.9 Iron deficiency anemia, unspecified; W18.30XA Fall on same level, unspecified, initial encounter; N28.9 Disorder of kidney and ureter, unspecified; G47.33 Obstructive sleep apnea (adult) (pediatric); N18.3 Chronic kidney disease, stage 3 (moderate); I48.91 Unspecified atrial fibrillation; Z86.711 Personal history of pulmonary embolism; Z79.01 Long term (current) use of anticoagulants; Z90.710 Acquired absence of both cervix and uterus; Z90.89 Acquired absence of other organs; Y93.89 Activity, other specified; Y92.89 Other specified places as the place of occurrence of the external cause; Y99.8 Other external cause status
CPT/HCPCS: 36415; 70450; 80048; 81001; 82040; 82607; 82728; 83540; 83550; 83735; 83930; 84443; 84466; 85025; 87077; 87086; 87186; 90471; 90715; 93005; 94640; 99285; G0378; J1750; J7626; J7030; J7050

== ENCOUNTER 2020-01-25 22:04 | Inpatient (IN) | payer MEDICARE ==
[~2020-01-25] VITALS: Ht 157.5 cm; Wt 100.3 kg
[~2020-01-25 22:04] MED LIST changes: +FERR-51 PO
--- NOTE | 2020-01-25 22:34 | NUR ---
FSBS 105.
--- NOTE | 2020-01-25 22:46 | NUR ---
PT IS ORIENTED TO SELF. PT DENIES DRUG USE "I DONT KNOW WHAT I TOOK." PEARRL 4 MM. [place]. NO FACIAL DROOP. +SENSATION. PER EMS PT NEEDS SOCIAL WORK CONSULT BC HER "CAN BARELY WALK" AND SHE FALLS MULTIPLE TIMES/WEEK. PER EMS PT HAS STACKS OF PILL BOTTLES ON NIGHTSTAND AND CLOSET. VSS. REPORT TO RADHA METCALF. AWAITING MD. FALL PRECS. CALL SANCHEZ.
--- NOTE | 2020-01-25 22:50 | NUR ---
REPORT TO RADHA METCALF.
--- NOTE | 2020-01-25 23:13 | NUR ---
PT STATES SHE NEEDED TO URINATE, BUT UNABLE TO WHEN PLACED ON BEDPAN.
[2020-01-25] MEDS ORDERED: SODIUM CHLORIDE FLUSH 10ML SYR IVF ONE (23:30)
--- NOTE | 2020-01-25 23:31 | NUR ---
EKG COMPLETE. XRAY AT BEDSIDE.
--- NOTE | 2020-01-25 23:55 | NUR ---
REPORT GIVEN TO IVY METCALF.
[2020-01-26 00:02] LABS: MEAN CORPUSCULAR HEMOGLOBIN 31.3 pg (27.0-34.8); MEAN CORPUSCULAR HGB CONC 33.2 g/dL (32.4-35.8); MEAN CORPUSCULAR VOLUME 94.1 fL (80-100); MEAN PLATELET VOLUME 7.4 fL (7.4-10.4); PLATELET COUNT 386 x10^3/uL (130-400); RED CELL DISTRIBUTION WIDTH 16.4 % (9.6-15.2)
[2020-01-26 00:15] LABS: MD YES
[2020-01-26 00:16] LABS: BAND#(MANUAL) 0.38 x10^3/uL; BANDS%(MANUAL) 2 % (0-7); BASOS#(MANUAL) 0.19 x10^3/uL (0-0.1); BASOS% (MANUAL) 1 % (0-1); EOS#(MANUAL) 0.19 x10^3/uL (0.0-0.4); EOS% (MANUAL) 1 % (1-7); LYMPH#(MANUAL) 1.54 x10^3/uL (1-3.4); LYMPHS% (MANUAL) 8 % (22-44); METAMYELOCYTES# (MANUAL) 0.19 x10^3/uL (0-0); METAMYELOCYTES% (MANUAL) 1 % (0-1); MONOS#(MANUAL) 0.77 x10^3/uL (0.3-2.7); MONOS% (MANUAL) 4 % (2-9); SEG#(MANUAL) 15.94 x10^3/uL (1.8-6.8); SEGS% (MANUAL) 83 % (42-75)
[2020-01-26 00:17] LABS: ALANINE AMINOTRANSFERASE 17 U/L (12-78); ALBUMIN 2.8 g/dL (3.4-5.0); ANION GAP 7 mmol/L (5-15); ANISOCYTOSIS 1+; CALCIUM 8.8 mg/dL (8.5-10.1); CHLORIDE 110 mmol/L (98-107); CREATININE 1.09 mg/dL (0.55-1.02); OVALOCYTES 1+; TEAR DROPS 1+
[2020-01-26 00:18] LABS: <PLATELET ESTIMATE> ADEQUATE; <PLT MORPHOLOGY> NORMAL PLT MORPH
[2020-01-26 00:21] LABS: ALKALINE PHOSPHATASE 127 U/L (45-117); BILIRUBIN,TOTAL 0.4 mg/dL (0.2-1.0); TOTAL PROTEIN 5.9 g/dL (6.4-8.2); TROPONIN I < 0.015 ng/mL (0.000-0.045)
[2020-01-26] MEDS ORDERED: MORPHINE SULFATE 4 MG/ML, 1ML ONE ×2 (01:09→02:00)
[2020-01-26] MEDS: MORPHINE SULFATE 4 MG/ML, 1ML IVPush PRN ×2 (01:15→02:02)
--- NOTE | 2020-01-26 01:22 | NUR ---
Pt placed on 2lpm O2 for SpO2 readings of 88% at room air.
[2020-01-26] MEDS ORDERED: CEFTRIAXONE PMX 1GM/50ML 50 ML IV ONE (01:30)
[2020-01-26] MEDS ORDERED: CEFTRIAXONE PMX 1GM/50ML 50 ML ONE (01:50)
[2020-01-26 01:57] LABS: MICROSCOPIC NOT IND
[2020-01-26 02:03] LABS: CULTURE INDICATED? NO
--- NOTE | 2020-01-26 02:42 | NUR ---
Report called to Kisha METCALF.
[2020-01-26] MEDS ORDERED: ONDANSETRON 2MG/ML, 2ML IVPush PRN (03:30)
[2020-01-26] MEDS ORDERED: BISACODYL 10 MG SUPP PR PRN (03:30)
[2020-01-26] MEDS ORDERED: hydrALAzine 20 MG/ML, 1ML IVPush PRN (03:30)
--- NOTE | 2020-01-26 03:30 | NUR ---
Report called to DIXON Goodson. Pt now being admitted to [facility] COVID rule out unit.
[2020-01-26 04:00] VITALS: BP 123/57
[2020-01-26] MEDS: ACETAMINOPHEN 325 MG TABLET PO PRN ×3 (06:44→19:49)
[2020-01-26 07:36] LABS: HCT (SEDRATE) 23.2 % (34.6-47.8)
[2020-01-26 07:45] LABS: ANION GAP 9 mmol/L (5-15); CALCIUM 8.6 mg/dL (8.5-10.1); CHLORIDE 111 mmol/L (98-107); CREATININE 1.06 mg/dL (0.55-1.02)
[2020-01-26 07:46] LABS: MEAN CORPUSCULAR HEMOGLOBIN 31.2 pg (27.0-34.8); MEAN CORPUSCULAR HGB CONC 33.2 g/dL (32.4-35.8); MEAN CORPUSCULAR VOLUME 93.9 fL (80-100); MEAN PLATELET VOLUME 7.2 fL (7.4-10.4); PLATELET COUNT 369 x10^3/uL (130-400); RED BLOOD COUNT 2.46 x10^6/uL (3.82-5.3)
[2020-01-26 07:55] VITALS: BP 123/63
[2020-01-26] MEDS: FERROUS SULFATE 325 MG TABLET PO SCH ×2 (08:00→16:41)
[2020-01-26] MEDS: ALLOPURINOL 100 MG TABLET PO SCH (08:17)
[2020-01-26] MEDS: DILTIAZEM 240 MG CAP.ER.24H PO SCH (08:17)
[2020-01-26] MEDS: PANTOPRAZOLE 40MG TABLET PO SCH (08:17)
[2020-01-26] MEDS: MONTELUKAST 10 MG TABLET PO SCH (08:17)
[2020-01-26] MEDS: APIXABAN 5 MG TABLET PO SCH ×2 (08:17→20:31)
[2020-01-26] MEDS: VENLAFAXINE 75MG TABLET PO SCH (08:17)
[2020-01-26] MEDS: SENNA/DOCUSATE TABLET PO SCH (08:17)
[2020-01-26] MEDS: GABAPENTIN 300 MG CAPSULE PO SCH ×3 (08:17→20:31)
[2020-01-26 08:35] LABS: BASOPHILS # (AUTO) 0.01 x10^3/uL (0-0.1); BASOPHILS % (AUTO) 0 % (0-1); EOSINOPHILS # (AUTO) 0.23 x10^3/uL (0-0.4); EOSINOPHILS % (AUTO) 2 % (1-7); LYMPHOCYTES # (AUTO) 1.11 x10^3/uL (1-3.4); LYMPHOCYTES % (AUTO) 9 % (22-44); MD SCAN; MONOCYTES # (AUTO) 0.71 x10^3/uL (0.2-0.8); MONOCYTES % (AUTO) 6 % (2-9); NEUTROPHILS # (AUTO) 10.55 x10^3/uL (1.8-6.8); NEUTROPHILS % (AUTO) 84 % (42-75)
[2020-01-26] MEDS: OXYcodone IR 5MG TABLET PO PRN ×2 (09:29→16:41)
[2020-01-26] MEDS: CEFTRIAXONE PMX 1GM/50ML 50 ML IV SCH (12:00)
[2020-01-26 12:27] VITALS: BP 124/58
[2020-01-26] MEDS ORDERED: FUROSEMIDE 40 MG/4 ML IV ONE (14:00)
[2020-01-26 17:22] VITALS: BP 131/69
[2020-01-26 19:38] VITALS: BP 165/77
[2020-01-26] MEDS: ROPINIROLE 1MG TABLET PO SCH (20:31)
[2020-01-27] MEDS: OXYcodone IR 5MG TABLET PO PRN ×3 (01:15→23:29)
[2020-01-27] MEDS: ACETAMINOPHEN 325 MG TABLET PO PRN ×4 (01:19→18:14)
[2020-01-27 01:28] VITALS: BP 138/72
[2020-01-27 06:41] VITALS: BP 149/70
[2020-01-27] MEDS ORDERED: VENLAFAXINE 37.5MG TABLET ONE (07:54)
[2020-01-27] MEDS: PANTOPRAZOLE 40MG TABLET PO SCH (08:07)
[2020-01-27] MEDS: ALLOPURINOL 100 MG TABLET PO SCH (08:07)
[2020-01-27] MEDS: GABAPENTIN 300 MG CAPSULE PO SCH ×3 (08:07→20:40)
[2020-01-27] MEDS: FERROUS SULFATE 325 MG TABLET PO SCH ×2 (08:07→18:00)
[2020-01-27] MEDS: APIXABAN 5 MG TABLET PO SCH ×2 (08:07→20:39)
[2020-01-27] MEDS: VENLAFAXINE 75MG TABLET PO SCH (08:08)
[2020-01-27] MEDS: MONTELUKAST 10 MG TABLET PO SCH (08:08)
[2020-01-27] MEDS: DILTIAZEM 240 MG CAP.ER.24H PO SCH (08:09)
[2020-01-27] MEDS: SENNA/DOCUSATE TABLET PO SCH (08:10)
[2020-01-27 08:59] LABS: BASOPHILS # (AUTO) 0.02 x10^3/uL (0-0.1); BASOPHILS % (AUTO) 0 % (0-1); EOSINOPHILS # (AUTO) 0.12 x10^3/uL (0-0.4); EOSINOPHILS % (AUTO) 1 % (1-7); LYMPHOCYTES # (AUTO) 1.06 x10^3/uL (1-3.4); LYMPHOCYTES % (AUTO) 10 % (22-44); MD NO; MEAN CORPUSCULAR HEMOGLOBIN 31.1 pg (27.0-34.8); MEAN CORPUSCULAR HGB CONC 32.7 g/dL (32.4-35.8); MEAN CORPUSCULAR VOLUME 95.3 fL (80-100); MEAN PLATELET VOLUME 6.7 fL (7.4-10.4); MONOCYTES # (AUTO) 0.66 x10^3/uL (0.2-0.8); MONOCYTES % (AUTO) 6 % (2-9); NEUTROPHILS # (AUTO) 9.35 x10^3/uL (1.8-6.8); NEUTROPHILS % (AUTO) 83 % (42-75); PLATELET COUNT 391 x10^3/uL (130-400); RED BLOOD COUNT 2.76 x10^6/uL (3.82-5.3)
[2020-01-27 09:10] LABS: ANION GAP 8 mmol/L (5-15); CALCIUM 8.9 mg/dL (8.5-10.1); CHLORIDE 106 mmol/L (98-107); CREATININE 1.15 mg/dL (0.55-1.02)
[2020-01-27] MEDS: CEFTRIAXONE PMX 1GM/50ML 50 ML IV SCH (11:49)
[2020-01-27 16:19] VITALS: BP 134/74
[2020-01-27 18:35] VITALS: BP 136/75
[2020-01-27] MEDS ORDERED: LIDOCAINE 1%, 10ML ONE (19:30)
[2020-01-27] MEDS: ROPINIROLE 1MG TABLET PO SCH (20:40)
[2020-01-28 01:12] VITALS: BP 146/67
[2020-01-28] MEDS: ACETAMINOPHEN 325 MG TABLET PO PRN ×4 (01:29→15:52)
[2020-01-28 06:44] VITALS: BP 179/70
[2020-01-28 06:50] VITALS: BP 151/83
[2020-01-28] MEDS: VENLAFAXINE 75MG TABLET PO SCH (08:51)
[2020-01-28] MEDS: MONTELUKAST 10 MG TABLET PO SCH (08:51)
[2020-01-28] MEDS: SENNA/DOCUSATE TABLET PO SCH (08:51)
[2020-01-28] MEDS: DILTIAZEM 240 MG CAP.ER.24H PO SCH (08:51)
[2020-01-28] MEDS: FERROUS SULFATE 325 MG TABLET PO SCH ×2 (08:52→15:52)
[2020-01-28] MEDS: APIXABAN 5 MG TABLET PO SCH ×2 (08:52→20:35)
[2020-01-28] MEDS: GABAPENTIN 300 MG CAPSULE PO SCH ×3 (08:52→20:36)
[2020-01-28] MEDS: PANTOPRAZOLE 40MG TABLET PO SCH (08:52)
[2020-01-28] MEDS: ALLOPURINOL 100 MG TABLET PO SCH (08:52)
[2020-01-28] MEDS: CEFTRIAXONE PMX 1GM/50ML 50 ML IV SCH (11:20)
[2020-01-28] MEDS: OXYcodone IR 5MG TABLET PO PRN ×2 (11:20→20:36)
[2020-01-28 13:31] VITALS: BP 131/63
[2020-01-28 18:39] VITALS: BP 130/69
[2020-01-28] MEDS: ROPINIROLE 1MG TABLET PO SCH (20:35)
[2020-01-29 00:44] VITALS: BP 134/68
[2020-01-29] MEDS: ACETAMINOPHEN 325 MG TABLET PO PRN ×3 (02:09→14:39)
[2020-01-29 05:44] LABS: BASOPHILS # (AUTO) 0.02 x10^3/uL (0-0.1); BASOPHILS % (AUTO) 0 % (0-1); EOSINOPHILS # (AUTO) 0.23 x10^3/uL (0-0.4); EOSINOPHILS % (AUTO) 2 % (1-7); LYMPHOCYTES # (AUTO) 1.26 x10^3/uL (1-3.4); LYMPHOCYTES % (AUTO) 13 % (22-44); MD NO; MEAN CORPUSCULAR HEMOGLOBIN 31.7 pg (27.0-34.8); MEAN CORPUSCULAR HGB CONC 33.2 g/dL (32.4-35.8); MEAN CORPUSCULAR VOLUME 95.4 fL (80-100); MEAN PLATELET VOLUME 7.6 fL (7.4-10.4); MONOCYTES # (AUTO) 0.59 x10^3/uL (0.2-0.8); MONOCYTES % (AUTO) 6 % (2-9); NEUTROPHILS % (AUTO) 78 % (42-75); PLATELET COUNT 363 x10^3/uL (130-400); RED BLOOD COUNT 2.62 x10^6/uL (3.82-5.3); RED CELL DISTRIBUTION WIDTH 16.5 % (9.6-15.2)
[2020-01-29 05:50] LABS: ANION GAP 4 mmol/L (5-15); CHLORIDE 108 mmol/L (98-107); CREATININE 1.31 mg/dL (0.55-1.02)
[2020-01-29] MEDS: OXYcodone IR 5MG TABLET PO PRN (06:14)
[2020-01-29 06:56] VITALS: BP 127/73
[2020-01-29] MEDS: PANTOPRAZOLE 40MG TABLET PO SCH (09:16)
[2020-01-29] MEDS: FERROUS SULFATE 325 MG TABLET PO SCH ×2 (09:16→16:51)
[2020-01-29] MEDS: VENLAFAXINE 75MG TABLET PO SCH (09:16)
[2020-01-29] MEDS: ALLOPURINOL 100 MG TABLET PO SCH (09:16)
[2020-01-29] MEDS: APIXABAN 5 MG TABLET PO SCH (09:16)
[2020-01-29] MEDS: DILTIAZEM 240 MG CAP.ER.24H PO SCH (09:16)
[2020-01-29] MEDS: GABAPENTIN 300 MG CAPSULE PO SCH ×2 (09:16→16:51)
[2020-01-29] MEDS: MONTELUKAST 10 MG TABLET PO SCH (09:16)
[2020-01-29] MEDS: SENNA/DOCUSATE TABLET PO SCH (09:16)
[2020-01-29] MEDS: CEFTRIAXONE PMX 1GM/50ML 50 ML IV SCH (13:14)
[2020-01-29 13:22] VITALS: BP 120/68
[2020-01-29] MEDS ORDERED: OXYC5TAB3 PO (16:12)
[2020-01-29] MEDS ORDERED: CEFD300C37 PO (16:12)
[2020-01-29] MEDS ORDERED: LACT1TAB13 PO (16:13)
== END 2020-01-29 17:08 | DRG 91 ==
LOC: ED 01-26 01:35 → EDIP 01-26 02:23 → 3N 01-26 02:53 → 3WST 01-26 03:55 → 3N 01-26 17:14
PROVIDERS: ADMIT Family Medicine; ATTEND Internal Medicine
PROC: 0S9D3ZX Drainage of Left Knee Joint, Percutaneous Approach, Diagnostic (ICD-10-PCS; principal; 2020-01-27)
DX: G92 Toxic encephalopathy (principal); I50.33 Acute on chronic diastolic (congestive) heart failure; I13.0 Hypertensive heart and chronic kidney disease with heart failure and stage 1 through stage 4 chronic kidney disease, or unspecified chronic kidney disease; F11.20 Opioid dependence, uncomplicated; R65.10 Systemic inflammatory response syndrome (SIRS) of non-infectious origin without acute organ dysfunction; J96.10 Chronic respiratory failure, unspecified whether with hypoxia or hypercapnia; S83.92XA Sprain of unspecified site of left knee, initial encounter; E66.01 Morbid (severe) obesity due to excess calories; J44.9 Chronic obstructive pulmonary disease, unspecified; Z86.711 Personal history of pulmonary embolism; M06.9 Rheumatoid arthritis, unspecified; N18.3 Chronic kidney disease, stage 3 (moderate); G47.33 Obstructive sleep apnea (adult) (pediatric); I25.10 Atherosclerotic heart disease of native coronary artery without angina pectoris; I48.91 Unspecified atrial fibrillation; D50.9 Iron deficiency anemia, unspecified; E78.00 Pure hypercholesterolemia, unspecified; Z66 Do not resuscitate; Z96.652 Presence of left artificial knee joint; W19.XXXA Unspecified fall, initial encounter; Z99.81 Dependence on supplemental oxygen; Z90.710 Acquired absence of both cervix and uterus; Z90.89 Acquired absence of other organs; Z82.49 Family history of ischemic heart disease and other diseases of the circulatory system; Z88.6 Allergy status to analgesic agent; Z88.2 Allergy status to sulfonamides; Z88.8 Allergy status to other drugs, medicaments and biological substances; Z82.5 Family history of asthma and other chronic lower respiratory diseases; Z83.3 Family history of diabetes mellitus; Z79.01 Long term (current) use of anticoagulants; Z87.891 Personal history of nicotine dependence; Z03.818 Encounter for observation for suspected exposure to other biological agents ruled out; Y92.009 Unspecified place in unspecified non-institutional (private) residence as the place of occurrence of the external cause
CPT/HCPCS: 36415; 70450; 71045; 72125; 77002; 80048; 80053; 80307; 81001; 81003; 82040; 82140; 82607; 82728; 82962; 83540; 83550; 83605; 83735; 83880; 83930; 84145; 84443; 84466; 84484; 85025; 85651; 86140; 87070; 87077; 87086; 87186; 87205; 89051; 90471; 90715; 93005; 93306; 94640; 99285; G0378; J0696; J1750; J1940; J7626; J2270; J7030; J7050

== ENCOUNTER → 2020-11-04 | Outpatient (CLI) | payer MEDICARE ==
[~2020-11-04] MED LIST changes: +AZIT500T PO; +LACT1TAB13 PO; +OXYC5TAB3 PO; -PANT40TA5 PO; +PANT40TA6 PO
== END | disposition home or self-care (01) ==
LOC: CFH 13:53
PROVIDERS: ATTEND Genetic Counselor, MS
DX: Z12.31 Encounter for screening mammogram for malignant neoplasm of breast (principal)
CPT/HCPCS: 77063; 77067

== ENCOUNTER 2021-05-24 13:29 | Inpatient (IN) | payer MEDICARE ==
[~2021-05-24] VITALS: Ht 154.9 cm; Wt 73.5 kg
[~2021-05-24 13:29] MED LIST changes: -FOLI0.4T2 PO; +FOLI0.4T5 PO; -OXYC5TAB3 PO; +OXYC5TAB98 PO
--- NOTE | 2021-05-24 14:05 | NUR ---
PT PRESENTS TO ED WITH FAMILY HISTORIAN FOR INCREASED CONFUSION AND WEAKNESS WITH HX OF DEMENTIA. PT BROUGHT HOME FROM REHAB [facility]ACILITY LAST SUNDAY. PT AWAKE, MAKES EYE CONTACT, WINKS, SMILES TO STAFF. ALLOWS FOR DAUGHTER AND GRAND DAUGHTER TO SPEAK FOR HER. PER DAUGHTER, PT TAKING OFF O2 CONTINUOUSLY. PT APPEARS LETHARGIC. DENIES ACUTE PAIN.
[2021-05-24] MEDS ORDERED: LISI-167 PO (14:16)
[2021-05-24] MEDS ORDERED: PREG75CA PO (14:16)
[2021-05-24] MEDS ORDERED: HYDROMORPHONE PO (14:16)
[2021-05-24] MEDS ORDERED: LEFLUNOMIDE PO (14:16)
[2021-05-24] MEDS ORDERED: DONE10TA14 PO (14:16)
[2021-05-24] MEDS ORDERED: LEVE10007 PO (14:16)
[2021-05-24] MEDS ORDERED: DILT240C55 PO (14:16)
[2021-05-24] MEDS ORDERED: DULOXETINE PO (14:16)
[2021-05-24] MEDS ORDERED: IRON PO (14:16)
[2021-05-24] MEDS ORDERED: VENLAFAXINE PO (14:16)
[2021-05-24] MEDS ORDERED: FURO-92 PO (14:16)
[2021-05-24] MEDS ORDERED: SODIUM CHLORIDE FLUSH 10ML SYR IVF ONE (14:30)
--- NOTE | 2021-05-24 14:33 | NUR ---
IV START, LABS AND BLOOD CULTURES DRAWN. CXR COMPLETED. PLAN FOR STRAIGHT CATH. FAMILY AT BEDSIDE.
[2021-05-24 14:45] LABS: MEAN CORPUSCULAR HEMOGLOBIN 31.9 pg (27.0-34.8); MEAN PLATELET VOLUME 8.8 fL (7.4-10.4); PLATELET COUNT 258 x10^3/uL (130-400); RED BLOOD COUNT 2.78 x10^6/uL (3.82-5.3)
[2021-05-24 14:51] LABS: ALBUMIN 2.2 g/dL (3.4-5.0); ANION GAP 7 mmol/L (5-15); CALCIUM 8.7 mg/dL (8.5-10.1); CHLORIDE 104 mmol/L (98-107)
--- NOTE | 2021-05-24 14:53 | NUR ---
PT TOLERATED MINI CATH WELL. NAD NOTED AT THIS TIME. PT RESTING WITH EYES CLOSED IN BED. SIDE RAILS UP, CALL LIGHT IN REACH.
[2021-05-24 14:59] LABS: ALANINE AMINOTRANSFERASE 119 U/L (12-78); ALKALINE PHOSPHATASE 950 U/L (45-117); BILIRUBIN,TOTAL 0.5 mg/dL (0.2-1.0); CREATININE 2.02 mg/dL (0.55-1.02); TROPONIN I < 0.015 ng/mL (0.000-0.045)
[2021-05-24 15:06] LABS: MICROSCOPIC AUTO
--- NOTE | 2021-05-24 15:15 | NUR ---
Note priti in ED - 05/24/21 at 1809 by MARIVEL DIXON FREEDMAN ASSUMING CARE. PT ASLEEP, RESPIRATIONS EVEN AND UNLABORED ON NC. NAD NOTED. AWAITING HOSPITAL BED ASSIGNMENT.
[2021-05-24 15:21] LABS: BANDS%(MANUAL) 14 % (0-7); BASOS#(MANUAL) 0.11 x10^3/uL (0-0.1); BASOS% (MANUAL) 1 % (0-1); LYMPH#(MANUAL) 0.11 x10^3/uL (1-3.4); LYMPHS% (MANUAL) 1 % (22-44); METAMYELOCYTES# (MANUAL) 0.11 x10^3/uL (0-0); METAMYELOCYTES% (MANUAL) 1 % (0-1); MONOS#(MANUAL) 0.57 x10^3/uL (0.3-2.7); MONOS% (MANUAL) 5 % (2-9); SEG#(MANUAL) 8.89 x10^3/uL (1.8-6.8); SEGS% (MANUAL) 78 % (42-75)
[2021-05-24 15:22] LABS: <PLATELET ESTIMATE> ADEQUATE; <PLT MORPHOLOGY> NORMAL PLT MORPH; <RBC MORPHOLOGY> NORMAL
--- NOTE | 2021-05-24 15:48 | NUR ---
PT CHART UP FOR RECHECK.
--- NOTE | 2021-05-24 16:35 | NUR ---
PT ASLEEP IN BED, AWAKENS EASILY. NAD NOTED AT THIS TIME. RESPIRATIONS EVEN AND UNLABORED ON NC. AWAITING ERMD RECHECK. FAMILY AT BEDSIDE.
[2021-05-24] MEDS ORDERED: CEFTRIAXONE 1,000 MG in DEXTROSE 5% 50 ML IVPB ONE (17:00)
--- NOTE | 2021-05-24 17:15 | NUR ---
JASMINA RN ASSUMING CARE. PT ASLEEP, RESPIRATIONS EVEN AND UNLABORED ON NC. NAD NOTED. AWAITING HOSPITAL BED ASSIGNMENT.
[2021-05-24] MEDS ORDERED: SODIUM CHLORIDE FLUSH 10ML SYR IVF PRN (17:30)
--- NOTE | 2021-05-24 18:23 | NUR ---
Pt resting in bed with eyes closed, resp even and unlabored, NADN.
--- NOTE | 2021-05-24 19:18 | NUR ---
Report received from DIXON Yu. Report given to DIXON Juarez on the floor. Patient to be transferred to room 335.
[2021-05-24] MEDS ORDERED: ACETAMINOPHEN 500 MG TABLET PO PRN (19:30)
[2021-05-24] MEDS ORDERED: POLYETHYLENE GLYCOL 17 GM PACKET PO PRN (19:30)
[2021-05-24] MEDS ORDERED: MELATONIN 5 MG TABLET PO PRN (19:30)
[2021-05-24] MEDS ORDERED: LABETALOL 5MG/ML, 20ML IVPush PRN (19:30)
[2021-05-24] MEDS ORDERED: ONDANSETRON 2MG/ML, 2ML IVPush PRN (19:30)
[2021-05-24 21:24] VITALS: BP 115/71
[2021-05-25 01:20] VITALS: BP 103/67
[2021-05-25 04:51] LABS: BASOPHILS % (AUTO) 1 % (0-1); EOSINOPHILS % (AUTO) 3 % (1-7); LYMPHOCYTES % (AUTO) 6 % (22-44); MEAN CORPUSCULAR HEMOGLOBIN 31.9 pg (27.0-34.8); MEAN CORPUSCULAR HGB CONC 34.1 g/dL (32.4-35.8); MEAN PLATELET VOLUME 8.8 fL (7.4-10.4); MONOCYTES % (AUTO) 5 % (2-9); NEUTROPHILS % (AUTO) 86 % (42-75); PLATELET COUNT 234 x10^3/uL (130-400)
[2021-05-25 05:04] LABS: ANION GAP 3 mmol/L (5-15); CHLORIDE 106 mmol/L (98-107); CREATININE 1.77 mg/dL (0.55-1.02)
[2021-05-25 07:11] VITALS: BP 99/62
[2021-05-25 12:26] VITALS: BP 104/67
[2021-05-25] MEDS: DILTIAZEM 60 MG TABLET PO SCH ×2 (13:55→19:39)
[2021-05-25] MEDS ORDERED: CEFTRIAXONE 2 GM in DEXTROSE 5% 50 ML IVPB SCH (17:00)
[2021-05-25] MEDS: APIXABAN 5 MG TABLET PO SCH (19:40)
[2021-05-25 19:46] VITALS: BP 102/65
[2021-05-25] MEDS ORDERED: OXYcodone IR 5MG TABLET ONE (20:31)
[2021-05-25] MEDS: OXYcodone IR 5MG TABLET PO PRN (20:33)
[2021-05-25 20:56] VITALS: BP 98/67
[2021-05-26] MEDS ORDERED: CEFTRIAXONE 2 GM in DEXTROSE 5% 50 ML IVPB SCH (00:30)
[2021-05-26 01:11] VITALS: BP 102/69
[2021-05-26] MEDS: DILTIAZEM 60 MG TABLET PO SCH ×3 (03:12→14:18)
[2021-05-26] MEDS: OXYcodone IR 5MG TABLET PO PRN ×2 (04:38→14:20)
[2021-05-26 07:20] VITALS: BP 124/75
[2021-05-26] MEDS ORDERED: ALLOPURINOL 100 MG TABLET PO SCH (09:00)
[2021-05-26] MEDS ORDERED: LEVO500T8 PO (10:06)
[2021-05-26] MEDS: APIXABAN 5 MG TABLET PO SCH (10:12)
[2021-05-26] MEDS ORDERED: LEVOFLOXACIN 500 MG TABLET PO SCH (10:30)
[2021-05-26 13:00] VITALS: BP 121/71
[2021-05-27] MEDS ORDERED: LEVOFLOXACIN 750 MG TABLET PO SCH (21:00)
== END 2021-05-26 18:33 | disposition home health service (06) | DRG 70 ==
LOC: ED 15:54 → EDIP 16:36 → 3N 19:34
PROVIDERS: ADMIT Family Medicine; ATTEND Hospitalist
PROC: 0T9B70Z Drainage of Bladder with Drainage Device, Via Natural or Artificial Opening (ICD-10-PCS; principal; 2021-05-24)
DX: G93.40 Encephalopathy, unspecified (principal); N17.0 Acute kidney failure with tubular necrosis; N30.00 Acute cystitis without hematuria; J96.11 Chronic respiratory failure with hypoxia; I48.20 Chronic atrial fibrillation, unspecified; D68.69 Other thrombophilia; I13.0 Hypertensive heart and chronic kidney disease with heart failure and stage 1 through stage 4 chronic kidney disease, or unspecified chronic kidney disease; B96.1 Klebsiella pneumoniae [K. pneumoniae] as the cause of diseases classified elsewhere; F03.90 Unspecified dementia, unspecified severity, without behavioral disturbance, psychotic disturbance, mood disturbance, and anxiety; I25.10 Atherosclerotic heart disease of native coronary artery without angina pectoris; M06.9 Rheumatoid arthritis, unspecified; E78.00 Pure hypercholesterolemia, unspecified; N18.30 Chronic kidney disease, stage 3 unspecified; F32.9 Major depressive disorder, single episode, unspecified; H70.92 Unspecified mastoiditis, left ear; G47.33 Obstructive sleep apnea (adult) (pediatric); I27.20 Pulmonary hypertension, unspecified; J44.9 Chronic obstructive pulmonary disease, unspecified; I50.9 Heart failure, unspecified; D64.9 Anemia, unspecified; K59.00 Constipation, unspecified; E66.01 Morbid (severe) obesity due to excess calories; Z90.710 Acquired absence of both cervix and uterus; Z90.89 Acquired absence of other organs; Z88.2 Allergy status to sulfonamides; Z88.8 Allergy status to other drugs, medicaments and biological substances; Z88.6 Allergy status to analgesic agent; Z88.0 Allergy status to penicillin; Z91.013 Allergy to seafood; Z87.891 Personal history of nicotine dependence; Z95.5 Presence of coronary angioplasty implant and graft; Z82.61 Family history of arthritis; Z82.49 Family history of ischemic heart disease and other diseases of the circulatory system; Z99.81 Dependence on supplemental oxygen; Z79.899 Other long term (current) drug therapy
CPT/HCPCS: 36415; 70450; 71045; 80048; 80053; 81001; 82140; 84443; 84484; 85025; 87040; 87077; 87086; 87186; 93005; 96365; G0378; J0696; 92523-GN

== ENCOUNTER 2021-05-30 16:19 | Inpatient (IN) | payer MEDICARE ==
[~2021-05-30] VITALS: Ht 154.9 cm; Wt 78.2 kg
[~2021-05-30 16:19] MED LIST changes: +DONE10TA14 PO; +DULOXETINE PO; +FURO-92 PO; +HYDROMORPHONE PO; +IRON PO; +LEFLUNOMIDE PO; +LEVE10007 PO; +LEVO500T8 PO; +PREG75CA PO; +VENLAFAXINE PO
--- NOTE | 2021-05-30 16:44 | NUR ---
PT TO ROOM FROM TRIAGE VIA WHEELCHAIR. PT WITH INCREASED WEAKNESS, CONFUSION AND LOW BP. HX OF RECENT UTI. PT SENT BY PMD OFFICE BP AT OFFICE WAS 78/48. PT EXTREMLY WEAK MAX ASSIST TO UNDRESS AND SITUATE ONTO GURNEY. INITIAL BP 88/34. PT CONVERSES BUT IS CONFUSED AT TIME. ALL MONITORS PLACED, FAMILY AT BEDSIDE. ED PROVIDER EVAL PENDING.
[2021-05-30] MEDS ORDERED: SODIUM CHLORIDE 0.9% 1,000ML IVBOLUS ONE ×2 (17:00→18:30)
[2021-05-30] MEDS ORDERED: SODIUM CHLORIDE FLUSH 10ML SYR IVF ONE (17:00)
[2021-05-30] MEDS ORDERED: LIDOCAINE-MPF 1%, 5ML ONE (17:11)
[2021-05-30] MEDS ORDERED: BACITRACIN ZINC OINT 500U/GM, 0.9 GM ONE (17:15)
[2021-05-30 17:22] LABS: MEAN CORPUSCULAR HEMOGLOBIN 31.1 pg (27.0-34.8); MEAN CORPUSCULAR HGB CONC 33.2 g/dL (32.4-35.8); MEAN PLATELET VOLUME 8.2 fL (7.4-10.4); PLATELET COUNT 359 x10^3/uL (130-400); RED BLOOD COUNT 2.67 x10^6/uL (3.82-5.3); RED CELL DISTRIBUTION WIDTH 19.3 % (9.6-15.2)
[2021-05-30 17:29] LABS: ALANINE AMINOTRANSFERASE 22 U/L (12-78); ANION GAP 9 mmol/L (5-15); CALCIUM 8.6 mg/dL (8.5-10.1); CHLORIDE 99 mmol/L (98-107); CREATININE 2.97 mg/dL (0.55-1.02); INTERNATIONAL NORMALIZED RATIO 1.01 (0.93-1.1); PROTHROMBIN TIME 10.8 Seconds (9.6-11.5)
[2021-05-30 17:33] LABS: ALKALINE PHOSPHATASE 350 U/L (45-117); BILIRUBIN,TOTAL 0.3 mg/dL (0.2-1.0); TOTAL PROTEIN 5.5 g/dL (6.4-8.2); TROPONIN I < 0.015 ng/mL (0.000-0.045)
[2021-05-30 18:18] LABS: <RBC MORPHOLOGY> NORMAL; BANDS%(MANUAL) 13 % (0-7); EOS#(MANUAL) 0.12 x10^3/uL (0.0-0.4); EOS% (MANUAL) 1 % (1-7); LYMPH#(MANUAL) 0.98 x10^3/uL (1-3.4); LYMPHS% (MANUAL) 8 % (22-44); METAMYELOCYTES# (MANUAL) 0.12 x10^3/uL (0-0); METAMYELOCYTES% (MANUAL) 1 % (0-1); MONOS#(MANUAL) 0.37 x10^3/uL (0.3-2.7); MONOS% (MANUAL) 3 % (2-9); PMNS WITH VACUOLES 1+; SEGS% (MANUAL) 74 % (42-75)
[2021-05-30 18:19] LABS: <PLATELET ESTIMATE> ADEQUATE; <PLT MORPHOLOGY> NORMAL PLT MORPH
[2021-05-30 18:20] LABS: MICROSCOPIC INDICATED
--- NOTE | 2021-05-30 19:22 | NUR ---
SBAR RPT TO DIXON RICE. PT TO CT WITH TECH TRANSPORT. 2ND LITER OF NS INFUSING W/O DIFFICULTY
--- NOTE | 2021-05-30 19:25 | NUR ---
18G RIGHT AC PLACED BY THIS RN.
--- NOTE | 2021-05-30 19:34 | NUR ---
SEPSIS WORK UP DISCUSSED WITH DR PAYNE, IVF INFUSING, PLAN FOR CENTRAL LINE DISCUSSED. DR PAYNE TO ORDER JAMIE
--- NOTE | 2021-05-30 19:35 | NUR ---
SEPSIS SHEET STARTED GIVEN TO DIXON RICE FOR FINAL COMPLETION
[2021-05-30] MEDS ORDERED: NOREPINEPHRINE 8 MG in SODIUM CHLORIDE 0.9% 242 ML IV PRN ×2 (19:58→20:07)
[2021-05-30] MEDS ORDERED: CEFTRIAXONE 1,000 MG in DEXTROSE 5% 50 ML IVPB ONE (20:00)
[2021-05-30] MEDS ORDERED: LACTATED RINGERS 1,000 ML IVBOLUS ONE (20:00)
--- NOTE | 2021-05-30 20:00 | NUR ---
Patient transferred to T4 due to hypotension. Central line established. Report received from DIXON Ferro. This RN to assume care.
[2021-05-30] MEDS ORDERED: HEPARIN 5,000 UNITS/ML, 1ML SQ SCH (20:30)
[2021-05-30 20:47] VITALS: BP 97/49
[2021-05-30 21:20] VITALS: BP 98/41
[2021-05-30 21:50] VITALS: BP 124/43
[2021-05-30] MEDS ORDERED: DIGOXIN 0.25 MG/ML, 2ML IVPush ONE (22:00)
[2021-05-30] MEDS ORDERED: PHENYLEPHRINE 50 MG in SODIUM CHLORIDE 0.9% 245 ML IV PRN (22:00)
[2021-05-30] MEDS ORDERED: DIGOXIN 0.25 MG/ML, 2ML ONE (22:06)
[2021-05-30 22:23] VITALS: BP 81/32
[2021-05-30] MEDS: FAMOTIDINE 20 MG TABLET PO SCH (23:12)
--- NOTE | 2021-05-30 23:30 | NUR ---
Attempted to transfer patient to floor but she had a watery bowel movement with intermittent formed stools. Patient continued to have continuous BM. Called Henrique in CCU and she states to bring patient up. Stool sample collected and walked to lab. Hospitalist informed.
--- NOTE | 2021-05-30 23:36 | NUR ---
Report given to DIXON Duenas. Patient to be transferred to room 549-1.
[2021-05-31] MEDS: LACTATED RINGERS 1,000 ML IV SCH ×2 (00:20→07:30)
[2021-05-31] MEDS: DILTIAZEM 5 MG/ML, 5ML IVPush PRN ×4 (01:05→01:56)
[2021-05-31 01:15] LABS: CLOSTRIDIUM DIFFICILE ANTIGEN NEGATIVE; CLOSTRIDIUM DIFFICILE TOXIN NEGATIVE (Negative)
[2021-05-31 01:38] VITALS: BP 106/59
[2021-05-31] MEDS ORDERED: ESMOLOL/NS PMX 250 ML IV PRN (02:30)
[2021-05-31] MEDS ORDERED: BUDESONIDE 0.5 MG/2 ML INHA NPPB PRN (02:30)
[2021-05-31] MEDS ORDERED: SENNA/DOCUSATE TABLET PO PRN (02:30)
[2021-05-31] MEDS ORDERED: APIXABAN/HEPARIN MC SCH (03:00)
[2021-05-31 06:53] LABS: MEAN CORPUSCULAR HGB CONC 33.3 g/dL (32.4-35.8); MEAN PLATELET VOLUME 8.6 fL (7.4-10.4); PLATELET COUNT 327 x10^3/uL (130-400); RED BLOOD COUNT 2.77 x10^6/uL (3.82-5.3); RED CELL DISTRIBUTION WIDTH 18.8 % (9.6-15.2)
[2021-05-31 07:03] LABS: ANION GAP 6 mmol/L (5-15); CALCIUM 7.9 mg/dL (8.5-10.1); CHLORIDE 107 mmol/L (98-107); CREATININE 2.13 mg/dL (0.55-1.02)
[2021-05-31 07:58] LABS: BAND#(MANUAL) 1.09 x10^3/uL; BANDS%(MANUAL) 8 % (0-7); BASOS#(MANUAL) 0.14 x10^3/uL (0-0.1); BASOS% (MANUAL) 1 % (0-1); EOS#(MANUAL) 0.68 x10^3/uL (0.0-0.4); EOS% (MANUAL) 5 % (1-7); LYMPH#(MANUAL) 0.41 x10^3/uL (1-3.4); LYMPHS% (MANUAL) 3 % (22-44); METAMYELOCYTES# (MANUAL) 0.27 x10^3/uL (0-0); METAMYELOCYTES% (MANUAL) 2 % (0-1); MONOS#(MANUAL) 0.14 x10^3/uL (0.3-2.7); MONOS% (MANUAL) 1 % (2-9); SEG#(MANUAL) 10.88 x10^3/uL (1.8-6.8); SEGS% (MANUAL) 80 % (42-75)
[2021-05-31 08:01] LABS: ANISOCYTOSIS 1+; OVALOCYTES 1+
[2021-05-31 08:04] LABS: <PLATELET ESTIMATE> ADEQUATE
[2021-05-31 08:05] LABS: <PLT MORPHOLOGY> NORMAL PLT MORPH
[2021-05-31] MEDS ORDERED: PANTOPRAZOLE 40MG TABLET PO SCH (09:00)
[2021-05-31] MEDS ORDERED: FILTER 0.22 MICRON FOR AMIODARONE IV PRN (09:00)
[2021-05-31] MEDS ORDERED: AMIODARONE 150 MG in DEXTROSE 5% 100 ML IV ONE (09:00)
[2021-05-31] MEDS ORDERED: DILTIAZEM 240 MG CAP.ER.24H PO SCH (09:00)
[2021-05-31] MEDS: AMIODARONE 450 MG in DEXTROSE 5% 241 ML IV PRN ×2 (09:39→19:50)
[2021-05-31] MEDS: LACTOBACILLUS CHEW TABLET PO SCH ×2 (09:48→21:28)
[2021-05-31] MEDS: APIXABAN 5 MG TABLET PO SCH ×2 (09:48→21:27)
[2021-05-31] MEDS: FERROUS SULFATE 325 MG TABLET PO SCH ×2 (09:48→18:09)
[2021-05-31] MEDS: LEVETIRACETAM 500 MG TABLET PO SCH ×2 (09:48→21:28)
[2021-05-31] MEDS ORDERED: NOREPINEPHRINE 8 MG in SODIUM CHLORIDE 0.9% 242 ML IV PRN (10:00)
[2021-05-31] MEDS: CEFTRIAXONE 2 GM in DEXTROSE 5% 50 ML IVPB SCH (11:42)
[2021-05-31] MEDS ORDERED: AMIODARONE 150 MG in DEXTROSE 5% 100 ML IV STA (13:09)
[2021-05-31] MEDS ORDERED: DIGOXIN 0.25 MG/ML, 2ML IVPush ONE (14:00)
[2021-05-31] MEDS: FAMOTIDINE 20 MG TABLET PO SCH (21:27)
[2021-05-31] MEDS: ROPINIROLE 1MG TABLET PO SCH (21:28)
[2021-05-31] MEDS: DONEPEZIL 10 MG TABLET PO SCH (21:28)
[2021-05-31] MEDS: OXYcodone IR 5MG TABLET PO PRN (23:54)
[2021-06-01] MEDS ORDERED: DILTIAZEM 5 MG/ML, 5ML IVPush ONE ×2 (01:00→01:30)
[2021-06-01] MEDS: DILTIAZEM 5 MG/ML, 5ML IVPush PRN (01:03)
[2021-06-01 01:31] LABS: CREATININE,URINE RANDOM 42.8 mg/dL
[2021-06-01] MEDS ORDERED: AMIODARONE 150 MG in DEXTROSE 5% 100 ML IV ONE ×2 (02:00→11:00)
[2021-06-01] MEDS: ESMOLOL/NS PMX 250 ML IV PRN ×2 (03:25→23:15)
[2021-06-01 04:21] LABS: MEAN CORPUSCULAR HGB CONC 32.9 g/dL (32.4-35.8); MEAN PLATELET VOLUME 8.5 fL (7.4-10.4); PLATELET COUNT 321 x10^3/uL (130-400); RED BLOOD COUNT 2.92 x10^6/uL (3.82-5.3); RED CELL DISTRIBUTION WIDTH 18.5 % (9.6-15.2)
[2021-06-01 04:34] LABS: ANION GAP 6 mmol/L (5-15); CALCIUM 8.3 mg/dL (8.5-10.1); CHLORIDE 109 mmol/L (98-107)
[2021-06-01 04:37] LABS: <PLATELET ESTIMATE> ADEQUATE; <PLT MORPHOLOGY> NORMAL PLT MORPH; ANISOCYTOSIS 1+; BAND#(MANUAL) 0.79 x10^3/uL; BANDS%(MANUAL) 6 % (0-7); EOS#(MANUAL) 0.79 x10^3/uL (0.0-0.4); EOS% (MANUAL) 6 % (1-7); LYMPH#(MANUAL) 1.19 x10^3/uL (1-3.4); LYMPHS% (MANUAL) 9 % (22-44); METAMYELOCYTES# (MANUAL) 0.26 x10^3/uL (0-0); METAMYELOCYTES% (MANUAL) 2 % (0-1); MONOS#(MANUAL) 0.26 x10^3/uL (0.3-2.7); MONOS% (MANUAL) 2 % (2-9); OVALOCYTES 1+; SEGS% (MANUAL) 75 % (42-75)
[2021-06-01] MEDS: OXYcodone IR 5MG TABLET PO PRN ×7 (04:38→18:57)
[2021-06-01 04:55] LABS: CREATININE 1.77 mg/dL (0.55-1.02)
[2021-06-01] MEDS: FERROUS SULFATE 325 MG TABLET PO SCH ×2 (07:52→18:57)
[2021-06-01] MEDS: APIXABAN 5 MG TABLET PO SCH ×2 (08:40→21:30)
[2021-06-01] MEDS: LACTOBACILLUS CHEW TABLET PO SCH ×2 (08:40→21:31)
[2021-06-01] MEDS: ALLOPURINOL 100 MG TABLET PO SCH (08:40)
[2021-06-01] MEDS: LEVETIRACETAM 500 MG TABLET PO SCH ×2 (08:41→21:30)
[2021-06-01] MEDS: AMIODARONE 450 MG in DEXTROSE 5% 241 ML IV PRN (08:44)
[2021-06-01] MEDS: CEFTRIAXONE 2 GM in DEXTROSE 5% 50 ML IVPB SCH (09:52)
[2021-06-01] MEDS ORDERED: DIGOXIN 0.25 MG/ML, 2ML ONE (10:47)
[2021-06-01] MEDS ORDERED: DIGOXIN 0.25 MG/ML, 2ML IVPush ONE (11:00)
[2021-06-01] MEDS: FAMOTIDINE 20 MG TABLET PO SCH (21:30)
[2021-06-01] MEDS: ROPINIROLE 1MG TABLET PO SCH (21:30)
[2021-06-01] MEDS: DONEPEZIL 10 MG TABLET PO SCH (21:30)
[2021-06-02] MEDS: AMIODARONE 450 MG in DEXTROSE 5% 241 ML IV PRN ×2 (01:01→16:56)
[2021-06-02 04:52] LABS: MEAN CORPUSCULAR HEMOGLOBIN 31.1 pg (27.0-34.8); MEAN PLATELET VOLUME 8.6 fL (7.4-10.4); PLATELET COUNT 334 x10^3/uL (130-400); RED BLOOD COUNT 3.02 x10^6/uL (3.82-5.3); RED CELL DISTRIBUTION WIDTH 19.2 % (9.6-15.2)
[2021-06-02 05:07] LABS: ANION GAP 6 mmol/L (5-15); CALCIUM 8.7 mg/dL (8.5-10.1); CHLORIDE 110 mmol/L (98-107)
[2021-06-02 05:09] LABS: CREATININE 1.42 mg/dL (0.55-1.02)
[2021-06-02 05:43] LABS: ANISOCYTOSIS 1+; BAND#(MANUAL) 0.49 x10^3/uL; BANDS%(MANUAL) 4 % (0-7); BASOS#(MANUAL) 0.12 x10^3/uL (0-0.1); BASOS% (MANUAL) 1 % (0-1); EOS#(MANUAL) 0.12 x10^3/uL (0.0-0.4); EOS% (MANUAL) 1 % (1-7); LYMPH#(MANUAL) 1.35 x10^3/uL (1-3.4); LYMPHS% (MANUAL) 11 % (22-44); MONOS#(MANUAL) 0.37 x10^3/uL (0.3-2.7); MONOS% (MANUAL) 3 % (2-9); MYELOCYTES# (MANUAL) 0.25 x10^3/uL (0-0); MYELOCYTES% (MANUAL) 2 % (0-0); OVALOCYTES 1+; PROGRANULOCYTES# (MANUAL) 0.12 x10^3/uL (0-0); PROGRANULOCYTES% (MANUAL) 1 % (0-0); SEG#(MANUAL) 9.47 x10^3/uL (1.8-6.8); SEGS% (MANUAL) 77 % (42-75)
[2021-06-02 05:44] LABS: <PLATELET ESTIMATE> ADEQUATE; <PLT MORPHOLOGY> NORMAL PLT MORPH
[2021-06-02] MEDS: ALLOPURINOL 100 MG TABLET PO SCH (09:07)
[2021-06-02] MEDS: LACTOBACILLUS CHEW TABLET PO SCH ×2 (09:07→20:10)
[2021-06-02] MEDS: LEVETIRACETAM 500 MG TABLET PO SCH ×2 (09:08→20:11)
[2021-06-02] MEDS: FERROUS SULFATE 325 MG TABLET PO SCH ×2 (09:08→16:37)
[2021-06-02] MEDS: APIXABAN 5 MG TABLET PO SCH ×2 (09:08→20:11)
[2021-06-02] MEDS: CEFTRIAXONE 2 GM in DEXTROSE 5% 50 ML IVPB SCH (10:44)
[2021-06-02] MEDS: DILTIAZEM 60 MG TABLET PO SCH ×2 (12:54→19:38)
[2021-06-02] MEDS: DULOXETINE 30 MG CAPSULE.DR PO SCH ×2 (12:54→20:10)
[2021-06-02] MEDS: PREGABALIN 25 MG CAPSULE PO SCH ×3 (12:55→20:11)
[2021-06-02] MEDS: METOPROLOL TARTRATE 25 MG TAB PO SCH ×2 (13:39→20:11)
[2021-06-02] MEDS: OXYcodone IR 5MG TABLET PO PRN ×2 (14:25→20:10)
[2021-06-02] MEDS ORDERED: METOPROLOL 1 MG/ML, 5ML IVPush PRN (17:00)
[2021-06-02] MEDS: ESMOLOL/NS PMX 250 ML IV PRN (17:11)
[2021-06-02] MEDS: ROPINIROLE 1MG TABLET PO SCH (20:11)
[2021-06-02] MEDS: FAMOTIDINE 20 MG TABLET PO SCH (20:11)
[2021-06-02] MEDS: DONEPEZIL 10 MG TABLET PO SCH (20:11)
[2021-06-03] MEDS: AMIODARONE 450 MG in DEXTROSE 5% 241 ML IV PRN (00:08)
[2021-06-03] MEDS: OXYcodone IR 5MG TABLET PO PRN ×5 (00:10→23:28)
[2021-06-03] MEDS: METOPROLOL TARTRATE 25 MG TAB PO SCH ×4 (03:00→20:12)
[2021-06-03] MEDS: ACETAMINOPHEN 325 MG TABLET PO PRN (03:48)
[2021-06-03] MEDS: DILTIAZEM 60 MG TABLET PO SCH (04:00)
[2021-06-03 04:44] VITALS: BP 150/66
[2021-06-03] MEDS: FERROUS SULFATE 325 MG TABLET PO SCH ×2 (08:31→15:29)
[2021-06-03] MEDS: AMIODARONE 200 MG TABLET PO SCH ×2 (08:32→20:12)
[2021-06-03] MEDS: DULOXETINE 30 MG CAPSULE.DR PO SCH ×2 (08:32→20:12)
[2021-06-03] MEDS: APIXABAN 5 MG TABLET PO SCH ×2 (08:32→20:11)
[2021-06-03] MEDS: LACTOBACILLUS CHEW TABLET PO SCH ×2 (08:33→21:00)
[2021-06-03] MEDS: PREGABALIN 25 MG CAPSULE PO SCH ×3 (08:33→20:13)
[2021-06-03] MEDS: LEVETIRACETAM 500 MG TABLET PO SCH ×2 (08:33→20:10)
[2021-06-03] MEDS: ALLOPURINOL 100 MG TABLET PO SCH (08:33)
[2021-06-03] MEDS: CEFTRIAXONE 2 GM in DEXTROSE 5% 50 ML IVPB SCH (09:59)
[2021-06-03 11:54] VITALS: BP 136/78
[2021-06-03 14:25] VITALS: BP 131/78
[2021-06-03 19:00] VITALS: BP 131/62
[2021-06-03 20:07] VITALS: BP 131/65
[2021-06-03] MEDS: FAMOTIDINE 20 MG TABLET PO SCH (20:12)
[2021-06-03] MEDS: ROPINIROLE 1MG TABLET PO SCH (20:13)
[2021-06-03] MEDS: DONEPEZIL 10 MG TABLET PO SCH (20:13)
[2021-06-04 00:32] VITALS: BP 158/70
[2021-06-04] MEDS: METOPROLOL TARTRATE 25 MG TAB PO SCH ×4 (03:00→20:09)
[2021-06-04 05:45] LABS: MEAN CORPUSCULAR HEMOGLOBIN 31.6 pg (27.0-34.8); MEAN CORPUSCULAR HGB CONC 33.6 g/dL (32.4-35.8); MEAN PLATELET VOLUME 8.7 fL (7.4-10.4); PLATELET COUNT 326 x10^3/uL (130-400); RED BLOOD COUNT 3.04 x10^6/uL (3.82-5.3); RED CELL DISTRIBUTION WIDTH 18.9 % (9.6-15.2)
[2021-06-04 05:51] LABS: ALBUMIN 2.2 g/dL (3.4-5.0); ANION GAP 6 mmol/L (5-15); CALCIUM 8.6 mg/dL (8.5-10.1); CHLORIDE 106 mmol/L (98-107)
[2021-06-04 05:55] LABS: ALANINE AMINOTRANSFERASE 120 U/L (12-78); ALKALINE PHOSPHATASE 356 U/L (45-117); BILIRUBIN,TOTAL 0.2 mg/dL (0.2-1.0); CREATININE 1.39 mg/dL (0.55-1.02); TOTAL PROTEIN 5.5 g/dL (6.4-8.2)
[2021-06-04 06:37] LABS: BASOS#(MANUAL) 0.12 x10^3/uL (0-0.1); BASOS% (MANUAL) 1 % (0-1); EOS#(MANUAL) 0.48 x10^3/uL (0.0-0.4); EOS% (MANUAL) 4 % (1-7); LYMPH#(MANUAL) 0.71 x10^3/uL (1-3.4); LYMPHS% (MANUAL) 6 % (22-44); METAMYELOCYTES# (MANUAL) 0.12 x10^3/uL (0-0); METAMYELOCYTES% (MANUAL) 1 % (0-1); MONOS#(MANUAL) 0.71 x10^3/uL (0.3-2.7); MONOS% (MANUAL) 6 % (2-9)
[2021-06-04 06:39] LABS: ANISOCYTOSIS 1+; BAND#(MANUAL) 1.43 x10^3/uL; BANDS%(MANUAL) 12 % (0-7); POLYCHROMASIA 1+; SEG#(MANUAL) 8.33 x10^3/uL (1.8-6.8); SEGS% (MANUAL) 70 % (42-75)
[2021-06-04 06:40] LABS: <PLATELET ESTIMATE> ADEQUATE; <PLT MORPHOLOGY> NORMAL PLT MORPH; OVALOCYTES 1+
[2021-06-04 06:52] VITALS: BP 154/78
[2021-06-04] MEDS: APIXABAN 5 MG TABLET PO SCH ×2 (08:43→20:09)
[2021-06-04] MEDS: ALLOPURINOL 100 MG TABLET PO SCH (08:43)
[2021-06-04] MEDS: PREGABALIN 25 MG CAPSULE PO SCH ×3 (08:43→20:08)
[2021-06-04] MEDS: LACTOBACILLUS CHEW TABLET PO SCH ×2 (08:43→20:08)
[2021-06-04] MEDS: FERROUS SULFATE 325 MG TABLET PO SCH ×2 (08:43→18:00)
[2021-06-04] MEDS: AMIODARONE 200 MG TABLET PO SCH ×2 (08:43→20:08)
[2021-06-04] MEDS: LEVETIRACETAM 500 MG TABLET PO SCH ×2 (08:44→20:09)
[2021-06-04] MEDS: DULOXETINE 30 MG CAPSULE.DR PO SCH ×2 (08:44→20:09)
[2021-06-04] MEDS: CEFTRIAXONE 2 GM in DEXTROSE 5% 50 ML IVPB SCH (10:59)
[2021-06-04] MEDS: ACETAMINOPHEN 325 MG TABLET PO PRN ×2 (11:15→15:38)
[2021-06-04 12:16] VITALS: BP 153/79
[2021-06-04] MEDS: OXYcodone IR 5MG TABLET PO PRN ×2 (13:38→20:10)
[2021-06-04 19:29] VITALS: BP 162/74
[2021-06-04] MEDS ORDERED: MELATONIN 5 MG TABLET ONE (20:04)
[2021-06-04] MEDS: ROPINIROLE 1MG TABLET PO SCH (20:09)
[2021-06-04] MEDS: MELATONIN 5 MG TABLET PO PRN (20:09)
[2021-06-04] MEDS: DONEPEZIL 10 MG TABLET PO SCH (20:09)
[2021-06-04] MEDS: FAMOTIDINE 20 MG TABLET PO SCH (21:00)
[2021-06-05] MEDS: METOPROLOL TARTRATE 25 MG TAB PO SCH ×4 (02:40→21:19)
[2021-06-05 02:44] VITALS: BP 157/80
[2021-06-05] MEDS: FERROUS SULFATE 325 MG TABLET PO SCH ×2 (07:27→15:54)
[2021-06-05] MEDS: ACETAMINOPHEN 325 MG TABLET PO PRN ×2 (07:28→16:00)
[2021-06-05] MEDS: OXYcodone IR 5MG TABLET PO PRN ×3 (07:28→21:19)
[2021-06-05] MEDS ORDERED: FUROSEMIDE 40 MG/4 ML IV ONE (08:00)
[2021-06-05 09:15] VITALS: BP 158/74
[2021-06-05] MEDS: AMIODARONE 200 MG TABLET PO SCH ×2 (10:02→21:05)
[2021-06-05] MEDS: APIXABAN 5 MG TABLET PO SCH ×2 (10:03→21:05)
[2021-06-05] MEDS: ALLOPURINOL 100 MG TABLET PO SCH (10:04)
[2021-06-05] MEDS: PREGABALIN 25 MG CAPSULE PO SCH ×3 (10:04→21:19)
[2021-06-05] MEDS: CEFTRIAXONE 2 GM in DEXTROSE 5% 50 ML IVPB SCH (10:04)
[2021-06-05] MEDS: DULOXETINE 30 MG CAPSULE.DR PO SCH ×2 (10:04→21:05)
[2021-06-05] MEDS: LEVETIRACETAM 500 MG TABLET PO SCH ×2 (10:04→21:05)
[2021-06-05] MEDS: LACTOBACILLUS CHEW TABLET PO SCH ×2 (10:04→21:05)
[2021-06-05 13:53] VITALS: BP 155/73
[2021-06-05 21:03] VITALS: BP 142/67
[2021-06-05] MEDS: ROPINIROLE 1MG TABLET PO SCH (21:05)
[2021-06-05] MEDS: DONEPEZIL 10 MG TABLET PO SCH (21:05)
[2021-06-05] MEDS: FAMOTIDINE 20 MG TABLET PO SCH (21:05)
[2021-06-06 01:01] VITALS: BP 173/83
[2021-06-06] MEDS: METOPROLOL TARTRATE 25 MG TAB PO SCH ×4 (04:05→20:47)
[2021-06-06] MEDS: OXYcodone IR 5MG TABLET PO PRN ×3 (04:05→20:46)
[2021-06-06 06:00] LABS: CHLORIDE 107 mmol/L (98-107)
[2021-06-06 06:05] LABS: MEAN CORPUSCULAR HEMOGLOBIN 31.2 pg (27.0-34.8); MEAN CORPUSCULAR HGB CONC 33.3 g/dL (32.4-35.8); MEAN PLATELET VOLUME 8.6 fL (7.4-10.4); PLATELET COUNT 302 x10^3/uL (130-400); RED BLOOD COUNT 2.98 x10^6/uL (3.82-5.3); RED CELL DISTRIBUTION WIDTH 19.6 % (9.6-15.2)
[2021-06-06 06:08] LABS: ALANINE AMINOTRANSFERASE 130 U/L (12-78); ALBUMIN 2.5 g/dL (3.4-5.0); ALKALINE PHOSPHATASE 526 U/L (45-117); ANION GAP 9 mmol/L (5-15); BILIRUBIN,TOTAL 0.4 mg/dL (0.2-1.0); CALCIUM 8.1 mg/dL (8.5-10.1); TOTAL PROTEIN 5.9 g/dL (6.4-8.2)
[2021-06-06 06:48] LABS: BANDS%(MANUAL) 10 % (0-7); EOS#(MANUAL) 0.12 x10^3/uL (0.0-0.4); EOS% (MANUAL) 1 % (1-7); LYMPHS% (MANUAL) 10 % (22-44); METAMYELOCYTES# (MANUAL) 0.12 x10^3/uL (0-0); METAMYELOCYTES% (MANUAL) 1 % (0-1); MONOS#(MANUAL) 0.72 x10^3/uL (0.3-2.7); MONOS% (MANUAL) 6 % (2-9); SEG#(MANUAL) 8.64 x10^3/uL (1.8-6.8); SEGS% (MANUAL) 72 % (42-75)
[2021-06-06 06:49] LABS: ANISOCYTOSIS 1+; OVALOCYTES 1+; POLYCHROMASIA 1+
[2021-06-06 06:50] LABS: <PLATELET ESTIMATE> ADEQUATE; <PLT MORPHOLOGY> NORMAL PLT MORPH
[2021-06-06 07:14] VITALS: BP 182/69
[2021-06-06] MEDS: FERROUS SULFATE 325 MG TABLET PO SCH ×2 (07:54→16:46)
[2021-06-06] MEDS: AMIODARONE 200 MG TABLET PO SCH ×2 (07:54→20:47)
[2021-06-06] MEDS: ALLOPURINOL 100 MG TABLET PO SCH (07:54)
[2021-06-06] MEDS: PREGABALIN 25 MG CAPSULE PO SCH ×3 (07:54→20:46)
[2021-06-06] MEDS: DULOXETINE 30 MG CAPSULE.DR PO SCH ×2 (07:54→20:46)
[2021-06-06] MEDS: ERGOCALCIFEROL 50,000 UNIT CAPSULE PO SCH (07:54)
[2021-06-06] MEDS: APIXABAN 5 MG TABLET PO SCH ×2 (07:54→20:47)
[2021-06-06] MEDS: LACTOBACILLUS CHEW TABLET PO SCH ×2 (07:55→20:46)
[2021-06-06] MEDS: LEVETIRACETAM 500 MG TABLET PO SCH ×2 (08:33→20:46)
[2021-06-06] MEDS: CEFTRIAXONE 2 GM in DEXTROSE 5% 50 ML IVPB SCH (08:33)
[2021-06-06] MEDS ORDERED: LOSARTAN 50MG TABLET PO SCH (09:00)
[2021-06-06] MEDS ORDERED: PHARMACY INSTRUCTION MC PRN (14:30)
[2021-06-06] MEDS ORDERED: INSTRUCTION SEE COMMENTS XX PRN (14:30)
[2021-06-06 14:50] VITALS: BP 174/101
[2021-06-06] MEDS: FUROSEMIDE 20 MG TABLET PO SCH (14:53)
[2021-06-06] MEDS ORDERED: QUETIAPINE 25MG TABLET PO PRN (15:00)
[2021-06-06 17:01] LABS: HCT (SEDRATE) 28.8 % (34.6-47.8)
[2021-06-06 20:06] VITALS: BP 166/103
[2021-06-06] MEDS: FAMOTIDINE 20 MG TABLET PO SCH (20:46)
[2021-06-06] MEDS: DONEPEZIL 10 MG TABLET PO SCH (20:46)
[2021-06-06] MEDS: ROPINIROLE 1MG TABLET PO SCH (20:54)
[2021-06-07 02:25] VITALS: BP 153/76
[2021-06-07] MEDS: METOPROLOL TARTRATE 25 MG TAB PO SCH ×4 (02:34→20:35)
[2021-06-07 06:53] LABS: MEAN CORPUSCULAR HEMOGLOBIN 31.2 pg (27.0-34.8); MEAN CORPUSCULAR HGB CONC 33.2 g/dL (32.4-35.8); MEAN PLATELET VOLUME 8.7 fL (7.4-10.4); PLATELET COUNT 289 x10^3/uL (130-400); RED BLOOD COUNT 3.04 x10^6/uL (3.82-5.3); RED CELL DISTRIBUTION WIDTH 19.6 % (9.6-15.2)
[2021-06-07 06:59] LABS: ALANINE AMINOTRANSFERASE 100 U/L (12-78); ALBUMIN 2.5 g/dL (3.4-5.0); ANION GAP 8 mmol/L (5-15); CALCIUM 8.2 mg/dL (8.5-10.1); CHLORIDE 107 mmol/L (98-107); CREATININE 1.16 mg/dL (0.55-1.02)
[2021-06-07 07:02] LABS: ALKALINE PHOSPHATASE 536 U/L (45-117); BILIRUBIN,TOTAL 0.3 mg/dL (0.2-1.0); TOTAL PROTEIN 5.9 g/dL (6.4-8.2)
[2021-06-07 07:20] LABS: BAND#(MANUAL) 1.41 x10^3/uL; BANDS%(MANUAL) 10 % (0-7); EOS#(MANUAL) 0.28 x10^3/uL (0.0-0.4); EOS% (MANUAL) 2 % (1-7); LYMPH#(MANUAL) 0.85 x10^3/uL (1-3.4); LYMPHS% (MANUAL) 6 % (22-44); METAMYELOCYTES# (MANUAL) 0.42 x10^3/uL (0-0); METAMYELOCYTES% (MANUAL) 3 % (0-1); MONOS#(MANUAL) 0.56 x10^3/uL (0.3-2.7); MONOS% (MANUAL) 4 % (2-9); SEG#(MANUAL) 10.58 x10^3/uL (1.8-6.8); SEGS% (MANUAL) 75 % (42-75)
[2021-06-07 07:21] LABS: <PLATELET ESTIMATE> ADEQUATE; <PLT MORPHOLOGY> NORMAL PLT MORPH; ANISOCYTOSIS 1+; OVALOCYTES 1+; POLYCHROMASIA 1+
[2021-06-07 07:32] VITALS: BP 170/65
[2021-06-07] MEDS: LOSARTAN 50MG TABLET PO SCH (08:22)
[2021-06-07] MEDS: FUROSEMIDE 20 MG TABLET PO SCH (08:23)
[2021-06-07] MEDS: DULOXETINE 30 MG CAPSULE.DR PO SCH ×2 (08:23→20:35)
[2021-06-07] MEDS: PREGABALIN 25 MG CAPSULE PO SCH ×3 (08:23→20:35)
[2021-06-07] MEDS: APIXABAN 5 MG TABLET PO SCH ×2 (08:23→20:35)
[2021-06-07] MEDS: LACTOBACILLUS CHEW TABLET PO SCH ×2 (08:23→20:35)
[2021-06-07] MEDS: AMIODARONE 200 MG TABLET PO SCH ×2 (08:23→20:35)
[2021-06-07] MEDS: LEVETIRACETAM 500 MG TABLET PO SCH ×2 (08:23→20:35)
[2021-06-07] MEDS: FERROUS SULFATE 325 MG TABLET PO SCH ×2 (08:23→15:54)
[2021-06-07] MEDS: ALLOPURINOL 100 MG TABLET PO SCH (08:24)
[2021-06-07] MEDS: CEFTRIAXONE 2 GM in DEXTROSE 5% 50 ML IVPB SCH ×2 (10:04→11:43)
[2021-06-07] MEDS ORDERED: LIDOCAINE-MPF 1%, 5ML ONE (12:02)
[2021-06-07 14:12] VITALS: BP 158/69
[2021-06-07] MEDS ORDERED: VANCOMYCIN PER PHARMACY MC SCH (17:30)
[2021-06-07] MEDS ORDERED: PHARMACOKINETIC MONITORING MC PRN (18:00)
[2021-06-07] MEDS: OXYcodone IR 5MG TABLET PO PRN (18:37)
[2021-06-07] MEDS: VANCOMYCIN 1,500 MG in SODIUM CHLORIDE 0.9% 250 ML IV SCH ×2 (18:56→19:55)
[2021-06-07 19:01] VITALS: BP 149/67
[2021-06-07] MEDS: ACETAMINOPHEN 325 MG TABLET PO PRN (20:34)
[2021-06-07] MEDS: DONEPEZIL 10 MG TABLET PO SCH (20:35)
[2021-06-07] MEDS: ROPINIROLE 1MG TABLET PO SCH (20:35)
[2021-06-07] MEDS: FAMOTIDINE 20 MG TABLET PO SCH (20:35)
[2021-06-08 02:07] VITALS: BP 148/62
[2021-06-08] MEDS: METOPROLOL TARTRATE 25 MG TAB PO SCH ×4 (03:00→20:37)
[2021-06-08 06:05] LABS: MEAN CORPUSCULAR HEMOGLOBIN 31.9 pg (27.0-34.8); MEAN CORPUSCULAR HGB CONC 33.6 g/dL (32.4-35.8); MEAN PLATELET VOLUME 8.8 fL (7.4-10.4); PLATELET COUNT 246 x10^3/uL (130-400); RED BLOOD COUNT 3.03 x10^6/uL (3.82-5.3); RED CELL DISTRIBUTION WIDTH 20.3 % (9.6-15.2)
[2021-06-08 06:06] LABS: HCT (SEDRATE) 28.8 % (34.6-47.8)
[2021-06-08 06:35] LABS: ALANINE AMINOTRANSFERASE 70 U/L (12-78); ALBUMIN 2.3 g/dL (3.4-5.0); ALKALINE PHOSPHATASE 452 U/L (45-117); BILIRUBIN,TOTAL 0.3 mg/dL (0.2-1.0); CALCIUM 8.6 mg/dL (8.5-10.1); TOTAL PROTEIN 5.5 g/dL (6.4-8.2)
[2021-06-08 06:41] LABS: BAND#(MANUAL) 0.71 x10^3/uL; BANDS%(MANUAL) 7 % (0-7); EOS% (MANUAL) 2 % (1-7); LYMPH#(MANUAL) 0.31 x10^3/uL (1-3.4); LYMPHS% (MANUAL) 3 % (22-44); METAMYELOCYTES% (MANUAL) 1 % (0-1); MONOS#(MANUAL) 0.31 x10^3/uL (0.3-2.7); MONOS% (MANUAL) 3 % (2-9); SEG#(MANUAL) 8.57 x10^3/uL (1.8-6.8); SEGS% (MANUAL) 84 % (42-75)
[2021-06-08 06:42] LABS: <PLATELET ESTIMATE> ADEQUATE; <PLT MORPHOLOGY> NORMAL PLT MORPH; ANISOCYTOSIS 1+; OVALOCYTES 1+; POLYCHROMASIA 1+
[2021-06-08 06:57] LABS: ANION GAP 7 mmol/L (5-15); CHLORIDE 109 mmol/L (98-107)
[2021-06-08 07:32] VITALS: BP 158/82
[2021-06-08] MEDS: PREGABALIN 25 MG CAPSULE PO SCH ×3 (07:56→20:45)
[2021-06-08] MEDS: ALLOPURINOL 100 MG TABLET PO SCH (07:56)
[2021-06-08] MEDS: DULOXETINE 30 MG CAPSULE.DR PO SCH ×2 (07:56→20:46)
[2021-06-08] MEDS: LEVETIRACETAM 500 MG TABLET PO SCH ×2 (07:56→20:46)
[2021-06-08] MEDS: APIXABAN 5 MG TABLET PO SCH ×2 (07:56→20:46)
[2021-06-08] MEDS: FERROUS SULFATE 325 MG TABLET PO SCH ×2 (07:57→15:59)
[2021-06-08] MEDS: LOSARTAN 50MG TABLET PO SCH (07:57)
[2021-06-08] MEDS: FUROSEMIDE 20 MG TABLET PO SCH (07:57)
[2021-06-08] MEDS: AMIODARONE 200 MG TABLET PO SCH ×2 (07:57→20:47)
[2021-06-08] MEDS: LACTOBACILLUS CHEW TABLET PO SCH ×2 (08:00→20:47)
[2021-06-08] MEDS: OXYcodone IR 5MG TABLET PO PRN ×2 (08:00→15:58)
[2021-06-08] MEDS: CEFTRIAXONE 2 GM in DEXTROSE 5% 50 ML IVPB SCH (10:41)
[2021-06-08] MEDS: ACETAMINOPHEN 325 MG TABLET PO PRN (10:41)
[2021-06-08 14:07] VITALS: BP 115/68
[2021-06-08 19:40] VITALS: BP 131/57
[2021-06-08] MEDS: ROPINIROLE 1MG TABLET PO SCH (20:45)
[2021-06-08] MEDS: DONEPEZIL 10 MG TABLET PO SCH (20:46)
[2021-06-08] MEDS: FAMOTIDINE 20 MG TABLET PO SCH (20:46)
[2021-06-08] MEDS: MELATONIN 5 MG TABLET PO PRN (21:57)
[2021-06-09 00:19] VITALS: BP 118/67
[2021-06-09] MEDS: OXYcodone IR 5MG TABLET PO PRN ×4 (02:32→20:33)
[2021-06-09] MEDS: METOPROLOL TARTRATE 25 MG TAB PO SCH ×4 (02:45→20:29)
[2021-06-09 08:03] VITALS: BP 168/81
[2021-06-09] MEDS: FUROSEMIDE 20 MG TABLET PO SCH (08:16)
[2021-06-09] MEDS: FERROUS SULFATE 325 MG TABLET PO SCH ×2 (08:16→16:15)
[2021-06-09] MEDS: LEVETIRACETAM 500 MG TABLET PO SCH ×2 (08:16→20:25)
[2021-06-09] MEDS: PREGABALIN 25 MG CAPSULE PO SCH ×3 (08:16→20:25)
[2021-06-09] MEDS: LOSARTAN 50MG TABLET PO SCH (08:16)
[2021-06-09] MEDS: AMIODARONE 200 MG TABLET PO SCH ×2 (08:16→20:24)
[2021-06-09] MEDS: LACTOBACILLUS CHEW TABLET PO SCH ×2 (08:16→20:25)
[2021-06-09] MEDS: APIXABAN 5 MG TABLET PO SCH ×2 (08:16→20:25)
[2021-06-09] MEDS: DULOXETINE 30 MG CAPSULE.DR PO SCH ×2 (08:16→20:26)
[2021-06-09] MEDS: ALLOPURINOL 100 MG TABLET PO SCH (08:17)
[2021-06-09 08:29] VITALS: BP 166/90
[2021-06-09] MEDS: CEFTRIAXONE 2 GM in DEXTROSE 5% 50 ML IVPB SCH (10:00)
[2021-06-09 15:30] VITALS: BP 115/51
[2021-06-09 20:20] VITALS: BP 153/79
[2021-06-09] MEDS: ROPINIROLE 1MG TABLET PO SCH (20:24)
[2021-06-09] MEDS: FAMOTIDINE 20 MG TABLET PO SCH (20:25)
[2021-06-09] MEDS: DONEPEZIL 10 MG TABLET PO SCH (20:25)
[2021-06-09] MEDS: MELATONIN 5 MG TABLET PO PRN (20:32)
[2021-06-10 01:27] VITALS: BP 115/77
[2021-06-10] MEDS: METOPROLOL TARTRATE 25 MG TAB PO SCH ×4 (02:45→20:51)
[2021-06-10 07:49] VITALS: BP 145/73
[2021-06-10] MEDS: OXYcodone IR 5MG TABLET PO PRN ×2 (08:51→16:10)
[2021-06-10] MEDS: LACTOBACILLUS CHEW TABLET PO SCH (08:54)
[2021-06-10] MEDS: ALLOPURINOL 100 MG TABLET PO SCH (08:54)
[2021-06-10] MEDS: PREGABALIN 25 MG CAPSULE PO SCH ×3 (08:54→20:51)
[2021-06-10] MEDS: DULOXETINE 30 MG CAPSULE.DR PO SCH ×2 (08:55→20:51)
[2021-06-10] MEDS: AMIODARONE 200 MG TABLET PO SCH ×2 (08:55→20:51)
[2021-06-10] MEDS: LEVETIRACETAM 500 MG TABLET PO SCH ×2 (08:55→20:51)
[2021-06-10] MEDS: APIXABAN 5 MG TABLET PO SCH ×2 (08:55→20:51)
[2021-06-10] MEDS: FERROUS SULFATE 325 MG TABLET PO SCH ×2 (08:56→16:10)
[2021-06-10] MEDS: FUROSEMIDE 20 MG TABLET PO SCH (08:56)
[2021-06-10] MEDS: LOSARTAN 50MG TABLET PO SCH (08:57)
[2021-06-10] MEDS ORDERED: CEFTRIAXONE 2 GM in DEXTROSE 5% 50 ML IVPB SCH (14:00)
[2021-06-10 16:00] VITALS: BP 163/80
[2021-06-10 20:48] VITALS: BP 135/68
[2021-06-10] MEDS: DONEPEZIL 10 MG TABLET PO SCH (20:51)
[2021-06-10] MEDS: FAMOTIDINE 20 MG TABLET PO SCH (20:51)
[2021-06-10] MEDS: ROPINIROLE 1MG TABLET PO SCH (20:51)
[2021-06-11 03:35] VITALS: BP 144/78
[2021-06-11] MEDS: METOPROLOL TARTRATE 25 MG TAB PO SCH ×4 (03:39→20:14)
[2021-06-11 06:52] LABS: BASOPHILS % (AUTO) 1 % (0-1); EOSINOPHILS % (AUTO) 5 % (1-7); LYMPHOCYTES % (AUTO) 10 % (22-44); MEAN CORPUSCULAR HEMOGLOBIN 31.4 pg (27.0-34.8); MEAN CORPUSCULAR HGB CONC 32.4 g/dL (32.4-35.8); MEAN PLATELET VOLUME 9.1 fL (7.4-10.4); MONOCYTES % (AUTO) 9 % (2-9); NEUTROPHILS % (AUTO) 75 % (42-75); PLATELET COUNT 198 x10^3/uL (130-400); RED BLOOD COUNT 2.99 x10^6/uL (3.82-5.3); RED CELL DISTRIBUTION WIDTH 21.5 % (9.6-15.2)
[2021-06-11 07:00] LABS: ANION GAP 7 mmol/L (5-15); CALCIUM 8.9 mg/dL (8.5-10.1); CHLORIDE 111 mmol/L (98-107); CREATININE 0.94 mg/dL (0.55-1.02)
[2021-06-11 08:02] VITALS: BP 130/62
[2021-06-11] MEDS: FUROSEMIDE 20 MG TABLET PO SCH (08:06)
[2021-06-11] MEDS: LOSARTAN 50MG TABLET PO SCH (08:07)
[2021-06-11] MEDS: DULOXETINE 30 MG CAPSULE.DR PO SCH ×2 (08:07→20:14)
[2021-06-11] MEDS: ALLOPURINOL 100 MG TABLET PO SCH (08:07)
[2021-06-11] MEDS: APIXABAN 5 MG TABLET PO SCH ×2 (08:08→20:14)
[2021-06-11] MEDS: AMIODARONE 200 MG TABLET PO SCH ×2 (08:08→20:14)
[2021-06-11] MEDS: PREGABALIN 25 MG CAPSULE PO SCH ×3 (08:08→20:14)
[2021-06-11] MEDS: FERROUS SULFATE 325 MG TABLET PO SCH ×2 (08:08→16:02)
[2021-06-11] MEDS: LEVETIRACETAM 500 MG TABLET PO SCH ×2 (08:08→20:14)
[2021-06-11 13:25] VITALS: BP 135/64
[2021-06-11 15:55] VITALS: BP 138/69
[2021-06-11 19:43] VITALS: BP_SYST 127; BP_SYST 145; BP_DIAS 72; BP_DIAS 75
[2021-06-11] MEDS: FAMOTIDINE 20 MG TABLET PO SCH (20:14)
[2021-06-11] MEDS: ROPINIROLE 1MG TABLET PO SCH (20:14)
[2021-06-11] MEDS: DONEPEZIL 10 MG TABLET PO SCH (20:15)
[2021-06-12] MEDS: METOPROLOL TARTRATE 25 MG TAB PO SCH ×4 (02:08→22:50)
[2021-06-12] MEDS: OXYcodone IR 5MG TABLET PO PRN ×2 (04:51→22:54)
[2021-06-12] MEDS: FERROUS SULFATE 325 MG TABLET PO SCH ×2 (08:07→17:02)
[2021-06-12] MEDS: LOSARTAN 50MG TABLET PO SCH (08:08)
[2021-06-12] MEDS: PREGABALIN 25 MG CAPSULE PO SCH ×3 (08:08→22:51)
[2021-06-12] MEDS: LEVETIRACETAM 500 MG TABLET PO SCH ×2 (08:08→22:51)
[2021-06-12] MEDS: DULOXETINE 30 MG CAPSULE.DR PO SCH ×2 (08:10→22:50)
[2021-06-12] MEDS: APIXABAN 5 MG TABLET PO SCH ×2 (08:10→22:50)
[2021-06-12] MEDS: ALLOPURINOL 100 MG TABLET PO SCH (08:11)
[2021-06-12] MEDS: FUROSEMIDE 20 MG TABLET PO SCH (08:11)
[2021-06-12] MEDS: AMIODARONE 200 MG TABLET PO SCH ×2 (08:11→22:51)
[2021-06-12 08:13] VITALS: BP 129/79
[2021-06-12 14:12] VITALS: BP 116/71
[2021-06-12 19:04] VITALS: BP 123/60
[2021-06-12] MEDS: ROPINIROLE 1MG TABLET PO SCH (22:50)
[2021-06-12] MEDS: DONEPEZIL 10 MG TABLET PO SCH (22:51)
[2021-06-12] MEDS: FAMOTIDINE 20 MG TABLET PO SCH (22:51)
[2021-06-13] MEDS: MELATONIN 5 MG TABLET PO PRN ×2 (00:32→21:25)
[2021-06-13 05:40] LABS: ANION GAP 4 mmol/L (5-15); CALCIUM 8.5 mg/dL (8.5-10.1); CHLORIDE 109 mmol/L (98-107)
[2021-06-13 05:42] LABS: CREATININE 1.02 mg/dL (0.55-1.02)
[2021-06-13 07:57] VITALS: BP 116/62
[2021-06-13] MEDS: FERROUS SULFATE 325 MG TABLET PO SCH ×2 (08:22→16:50)
[2021-06-13] MEDS: LEVETIRACETAM 500 MG TABLET PO SCH ×2 (08:23→21:00)
[2021-06-13] MEDS: ALLOPURINOL 100 MG TABLET PO SCH (08:23)
[2021-06-13] MEDS: APIXABAN 5 MG TABLET PO SCH ×2 (08:23→21:26)
[2021-06-13] MEDS: LOSARTAN 50MG TABLET PO SCH (08:23)
[2021-06-13] MEDS: AMIODARONE 200 MG TABLET PO SCH ×2 (08:23→21:25)
[2021-06-13] MEDS: ERGOCALCIFEROL 50,000 UNIT CAPSULE PO SCH (08:23)
[2021-06-13] MEDS: PREGABALIN 25 MG CAPSULE PO SCH ×3 (08:23→21:26)
[2021-06-13] MEDS: DULOXETINE 30 MG CAPSULE.DR PO SCH ×2 (08:23→21:26)
[2021-06-13] MEDS: METOPROLOL TARTRATE 25 MG TAB PO SCH ×2 (08:24→21:24)
[2021-06-13] MEDS ORDERED: COVID-19 VAC,AD26(JANSSEN)/PF 0.5ML IM-VACC ONE (11:30)
[2021-06-13 12:23] VITALS: BP 106/65
[2021-06-13 19:17] VITALS: BP 112/68
[2021-06-13] MEDS: ROPINIROLE 1MG TABLET PO SCH (21:24)
[2021-06-13] MEDS: DONEPEZIL 10 MG TABLET PO SCH (21:25)
[2021-06-13] MEDS: FAMOTIDINE 20 MG TABLET PO SCH (21:26)
[2021-06-14 07:45] VITALS: BP 135/74
[2021-06-14] MEDS: LEVETIRACETAM 500 MG TABLET PO SCH ×2 (08:23→21:08)
[2021-06-14] MEDS: DULOXETINE 30 MG CAPSULE.DR PO SCH ×2 (08:23→21:07)
[2021-06-14] MEDS: METOPROLOL TARTRATE 25 MG TAB PO SCH ×2 (08:23→21:00)
[2021-06-14] MEDS: FERROUS SULFATE 325 MG TABLET PO SCH ×2 (08:23→16:35)
[2021-06-14] MEDS: AMIODARONE 200 MG TABLET PO SCH ×2 (08:23→21:07)
[2021-06-14] MEDS: PREGABALIN 25 MG CAPSULE PO SCH ×3 (08:23→21:08)
[2021-06-14] MEDS: APIXABAN 5 MG TABLET PO SCH ×2 (08:23→21:07)
[2021-06-14] MEDS: LOSARTAN 50MG TABLET PO SCH (08:24)
[2021-06-14] MEDS: ALLOPURINOL 100 MG TABLET PO SCH (09:00)
[2021-06-14] MEDS ORDERED: COVID-19 VAC,AD26(JANSSEN)/PF 0.5ML IM-VACC ONE ×2 (11:00)
[2021-06-14 12:39] VITALS: BP 137/74
[2021-06-14] MEDS: ACETAMINOPHEN 325 MG TABLET PO PRN (16:43)
[2021-06-14] MEDS: OXYcodone IR 5MG TABLET PO PRN (16:43)
[2021-06-14 18:45] VITALS: BP 120/70
[2021-06-14 21:06] VITALS: BP 145/69
[2021-06-14] MEDS: DONEPEZIL 10 MG TABLET PO SCH (21:07)
[2021-06-14] MEDS: FAMOTIDINE 20 MG TABLET PO SCH (21:07)
[2021-06-14] MEDS: ROPINIROLE 1MG TABLET PO SCH (21:08)
[2021-06-15 01:12] VITALS: BP 111/57
[2021-06-15] MEDS: FERROUS SULFATE 325 MG TABLET PO SCH ×2 (07:53→17:29)
[2021-06-15 09:18] VITALS: BP 164/64
[2021-06-15] MEDS: DULOXETINE 30 MG CAPSULE.DR PO SCH ×2 (09:20→19:50)
[2021-06-15] MEDS: PREGABALIN 25 MG CAPSULE PO SCH ×3 (09:20→19:51)
[2021-06-15] MEDS: APIXABAN 5 MG TABLET PO SCH ×2 (09:20→19:49)
[2021-06-15] MEDS: LEVETIRACETAM 500 MG TABLET PO SCH ×2 (09:20→19:49)
[2021-06-15] MEDS: METOPROLOL TARTRATE 25 MG TAB PO SCH ×2 (09:20→19:52)
[2021-06-15] MEDS: AMIODARONE 200 MG TABLET PO SCH ×2 (09:21→19:49)
[2021-06-15] MEDS: ALLOPURINOL 100 MG TABLET PO SCH (09:21)
[2021-06-15] MEDS: LOSARTAN 50MG TABLET PO SCH (09:21)
[2021-06-15 16:09] VITALS: BP 149/66
[2021-06-15 19:24] VITALS: BP 134/76
[2021-06-15] MEDS: FAMOTIDINE 20 MG TABLET PO SCH (19:49)
[2021-06-15] MEDS: ROPINIROLE 1MG TABLET PO SCH (19:49)
[2021-06-15] MEDS: DONEPEZIL 10 MG TABLET PO SCH (19:49)
[2021-06-16 00:19] VITALS: BP 124/69
[2021-06-16 07:49] VITALS: BP 144/78
[2021-06-16] MEDS: DULOXETINE 30 MG CAPSULE.DR PO SCH ×2 (08:10→20:32)
[2021-06-16] MEDS: LEVETIRACETAM 500 MG TABLET PO SCH ×2 (08:10→20:31)
[2021-06-16] MEDS: FERROUS SULFATE 325 MG TABLET PO SCH ×2 (08:11→16:45)
[2021-06-16] MEDS: PREGABALIN 25 MG CAPSULE PO SCH ×3 (08:11→20:32)
[2021-06-16] MEDS: ALLOPURINOL 100 MG TABLET PO SCH (08:11)
[2021-06-16] MEDS: LOSARTAN 50MG TABLET PO SCH (08:11)
[2021-06-16] MEDS: APIXABAN 5 MG TABLET PO SCH ×2 (08:11→20:32)
[2021-06-16] MEDS: AMIODARONE 200 MG TABLET PO SCH ×2 (08:11→20:32)
[2021-06-16] MEDS: METOPROLOL TARTRATE 25 MG TAB PO SCH ×2 (08:14→20:32)
[2021-06-16 12:39] VITALS: BP 131/68
[2021-06-16] MEDS: ACETAMINOPHEN 325 MG TABLET PO PRN (16:44)
[2021-06-16 19:25] VITALS: BP 142/69
[2021-06-16] MEDS: ROPINIROLE 1MG TABLET PO SCH (20:31)
[2021-06-16] MEDS: FAMOTIDINE 20 MG TABLET PO SCH (20:32)
[2021-06-16] MEDS: DONEPEZIL 10 MG TABLET PO SCH (20:32)
[2021-06-17 01:16] VITALS: BP 108/63
[2021-06-17] MEDS: ACETAMINOPHEN 325 MG TABLET PO PRN ×2 (02:13→06:29)
[2021-06-17] MEDS: MELATONIN 5 MG TABLET PO PRN ×2 (02:13→21:03)
[2021-06-17 08:26] VITALS: BP 138/67
[2021-06-17] MEDS: LOSARTAN 50MG TABLET PO SCH (08:28)
[2021-06-17] MEDS: LEVETIRACETAM 500 MG TABLET PO SCH ×2 (08:28→21:01)
[2021-06-17] MEDS: METOPROLOL TARTRATE 25 MG TAB PO SCH ×2 (08:29→21:00)
[2021-06-17] MEDS: FERROUS SULFATE 325 MG TABLET PO SCH ×2 (08:29→16:53)
[2021-06-17] MEDS: AMIODARONE 200 MG TABLET PO SCH ×2 (08:29→21:01)
[2021-06-17] MEDS: DULOXETINE 30 MG CAPSULE.DR PO SCH ×2 (08:29→21:00)
[2021-06-17] MEDS: APIXABAN 5 MG TABLET PO SCH ×2 (08:29→21:02)
[2021-06-17] MEDS: PREGABALIN 25 MG CAPSULE PO SCH ×3 (08:29→21:01)
[2021-06-17] MEDS: ALLOPURINOL 100 MG TABLET PO SCH (08:29)
[2021-06-17 13:58] VITALS: BP 115/61
[2021-06-17 15:12] VITALS: BP 163/75
[2021-06-17] MEDS ORDERED: ASPIRIN 325 MG TABLET EC PO ONE (15:30)
[2021-06-17] MEDS ORDERED: CALCIUM CARBONATE 500 MG TAB.CHEW PO PRN (15:30)
[2021-06-17 15:46] LABS: BASOPHILS % (AUTO) 1 % (0-1); EOSINOPHILS % (AUTO) 4 % (1-7); LYMPHOCYTES % (AUTO) 11 % (22-44); MEAN CORPUSCULAR HEMOGLOBIN 31.9 pg (27.0-34.8); MEAN CORPUSCULAR HGB CONC 32.4 g/dL (32.4-35.8); MEAN PLATELET VOLUME 9.7 fL (7.4-10.4); MONOCYTES % (AUTO) 10 % (2-9); NEUTROPHILS % (AUTO) 74 % (42-75); PLATELET COUNT 184 x10^3/uL (130-400); RED BLOOD COUNT 2.79 x10^6/uL (3.82-5.3); RED CELL DISTRIBUTION WIDTH 21.6 % (9.6-15.2)
[2021-06-17 15:54] LABS: ALANINE AMINOTRANSFERASE 26 U/L (12-78); ALBUMIN 2.4 g/dL (3.4-5.0); ANION GAP 6 mmol/L (5-15); CALCIUM 8.7 mg/dL (8.5-10.1); CHLORIDE 111 mmol/L (98-107); CREATININE 1.13 mg/dL (0.55-1.02)
[2021-06-17 15:59] LABS: ALKALINE PHOSPHATASE 217 U/L (45-117); BILIRUBIN,TOTAL 0.2 mg/dL (0.2-1.0); TOTAL PROTEIN 5.4 g/dL (6.4-8.2); TROPONIN I < 0.015 ng/mL (0.000-0.045)
[2021-06-17 20:11] VITALS: BP 124/72
[2021-06-17 20:28] LABS: OVALOCYTES 1+
[2021-06-17 20:32] LABS: <PLATELET ESTIMATE> ADEQUATE; <PLT MORPHOLOGY> NORMAL PLT MORPH; ANISOCYTOSIS 1+; POLYCHROMASIA 1+
[2021-06-17] MEDS: DONEPEZIL 10 MG TABLET PO SCH (21:00)
[2021-06-17] MEDS: ROPINIROLE 1MG TABLET PO SCH (21:01)
[2021-06-17] MEDS: FAMOTIDINE 20 MG TABLET PO SCH (21:01)
[2021-06-17 21:50] LABS: TROPONIN I < 0.015 ng/mL (0.000-0.045)
[2021-06-18 00:35] VITALS: BP 115/65
[2021-06-18 04:58] LABS: TROPONIN I < 0.015 ng/mL (0.000-0.045)
[2021-06-18] MEDS: ACETAMINOPHEN 325 MG TABLET PO PRN (05:36)
[2021-06-18 08:53] VITALS: BP 131/80
[2021-06-18] MEDS: FERROUS SULFATE 325 MG TABLET PO SCH ×2 (09:53→16:47)
[2021-06-18] MEDS: METOPROLOL TARTRATE 25 MG TAB PO SCH ×2 (09:53→20:33)
[2021-06-18] MEDS: PREGABALIN 25 MG CAPSULE PO SCH ×3 (09:53→20:33)
[2021-06-18] MEDS: APIXABAN 5 MG TABLET PO SCH ×2 (09:53→20:33)
[2021-06-18] MEDS: AMIODARONE 200 MG TABLET PO SCH ×2 (09:53→20:33)
[2021-06-18] MEDS: LEVETIRACETAM 500 MG TABLET PO SCH ×2 (09:54→20:33)
[2021-06-18] MEDS: ALLOPURINOL 100 MG TABLET PO SCH (09:54)
[2021-06-18] MEDS: LOSARTAN 50MG TABLET PO SCH (09:54)
[2021-06-18] MEDS: DULOXETINE 30 MG CAPSULE.DR PO SCH ×2 (09:54→20:32)
[2021-06-18 14:33] VITALS: BP 128/65
[2021-06-18 18:12] VITALS: BP 129/73
[2021-06-18] MEDS: ROPINIROLE 1MG TABLET PO SCH (20:32)
[2021-06-18] MEDS: DONEPEZIL 10 MG TABLET PO SCH (20:33)
[2021-06-18] MEDS: FAMOTIDINE 20 MG TABLET PO SCH (20:33)
[2021-06-18] MEDS: MELATONIN 5 MG TABLET PO PRN (20:40)
[2021-06-19 00:07] VITALS: BP 104/64
[2021-06-19] MEDS: FERROUS SULFATE 325 MG TABLET PO SCH ×2 (09:17→16:40)
[2021-06-19] MEDS: LEVETIRACETAM 500 MG TABLET PO SCH ×2 (09:18→20:59)
[2021-06-19] MEDS: APIXABAN 5 MG TABLET PO SCH ×2 (09:18→20:59)
[2021-06-19] MEDS: LOSARTAN 50MG TABLET PO SCH (09:18)
[2021-06-19] MEDS: PREGABALIN 25 MG CAPSULE PO SCH ×3 (09:18→20:59)
[2021-06-19] MEDS: DULOXETINE 30 MG CAPSULE.DR PO SCH ×2 (09:18→21:00)
[2021-06-19] MEDS: AMIODARONE 200 MG TABLET PO SCH ×2 (09:18→20:59)
[2021-06-19] MEDS: ALLOPURINOL 100 MG TABLET PO SCH (09:18)
[2021-06-19] MEDS: METOPROLOL TARTRATE 25 MG TAB PO SCH ×2 (09:19→20:59)
[2021-06-19 10:08] VITALS: BP 124/64
[2021-06-19 14:24] VITALS: BP 103/59
[2021-06-19 18:47] VITALS: BP 139/71
[2021-06-19] MEDS: DONEPEZIL 10 MG TABLET PO SCH (20:59)
[2021-06-19] MEDS: FAMOTIDINE 20 MG TABLET PO SCH (20:59)
[2021-06-19] MEDS: ROPINIROLE 1MG TABLET PO SCH (21:02)
[2021-06-20 00:39] VITALS: BP 115/65
[2021-06-20 07:15] VITALS: BP 128/69
[2021-06-20] MEDS: ALLOPURINOL 100 MG TABLET PO SCH (09:49)
[2021-06-20] MEDS: LEVETIRACETAM 500 MG TABLET PO SCH ×2 (09:49→21:10)
[2021-06-20] MEDS: PREGABALIN 25 MG CAPSULE PO SCH ×3 (09:49→21:10)
[2021-06-20] MEDS: AMIODARONE 200 MG TABLET PO SCH ×2 (09:50→21:10)
[2021-06-20] MEDS: METOPROLOL TARTRATE 25 MG TAB PO SCH ×2 (09:50→21:10)
[2021-06-20] MEDS: FERROUS SULFATE 325 MG TABLET PO SCH ×2 (09:50→15:58)
[2021-06-20] MEDS: LOSARTAN 50MG TABLET PO SCH (09:51)
[2021-06-20] MEDS: DULOXETINE 30 MG CAPSULE.DR PO SCH ×2 (09:51→21:10)
[2021-06-20] MEDS: ERGOCALCIFEROL 50,000 UNIT CAPSULE PO SCH (09:51)
[2021-06-20] MEDS: APIXABAN 5 MG TABLET PO SCH ×2 (09:51→21:10)
[2021-06-20 13:00] VITALS: BP 111/67
[2021-06-20 15:14] LABS: CLOSTRIDIUM DIFFICILE ANTIGEN NEGATIVE; CLOSTRIDIUM DIFFICILE TOXIN NEGATIVE (Negative)
[2021-06-20 18:53] VITALS: BP 109/72
[2021-06-20] MEDS: ROPINIROLE 1MG TABLET PO SCH (21:10)
[2021-06-20] MEDS: FAMOTIDINE 20 MG TABLET PO SCH (21:10)
[2021-06-20] MEDS: DONEPEZIL 10 MG TABLET PO SCH (21:10)
[2021-06-21 00:45] VITALS: BP 116/63
[2021-06-21] MEDS: FERROUS SULFATE 325 MG TABLET PO SCH ×2 (08:00→16:36)
[2021-06-21] MEDS: DULOXETINE 30 MG CAPSULE.DR PO SCH ×2 (09:00→20:52)
[2021-06-21] MEDS: METOPROLOL TARTRATE 25 MG TAB PO SCH ×2 (09:00→20:52)
[2021-06-21] MEDS: APIXABAN 5 MG TABLET PO SCH ×2 (09:00→20:52)
[2021-06-21] MEDS: LOSARTAN 50MG TABLET PO SCH (09:00)
[2021-06-21] MEDS: ALLOPURINOL 100 MG TABLET PO SCH (09:00)
[2021-06-21] MEDS: LEVETIRACETAM 500 MG TABLET PO SCH ×2 (09:00→20:53)
[2021-06-21] MEDS: AMIODARONE 200 MG TABLET PO SCH ×2 (09:00→20:53)
[2021-06-21] MEDS: PREGABALIN 25 MG CAPSULE PO SCH ×3 (09:00→20:52)
[2021-06-21 09:40] VITALS: BP 110/70
[2021-06-21 13:03] VITALS: BP 156/75
[2021-06-21 13:12] VITALS: BP 161/78
[2021-06-21 19:38] VITALS: BP 120/72
[2021-06-21] MEDS: DONEPEZIL 10 MG TABLET PO SCH (20:52)
[2021-06-21] MEDS: FAMOTIDINE 20 MG TABLET PO SCH (20:52)
[2021-06-21] MEDS: ROPINIROLE 1MG TABLET PO SCH (20:52)
[2021-06-22] MEDS: MELATONIN 5 MG TABLET PO PRN ×2 (02:41→20:04)
[2021-06-22 02:44] VITALS: BP 97/64
[2021-06-22 07:57] VITALS: BP 115/52
[2021-06-22] MEDS: METOPROLOL TARTRATE 25 MG TAB PO SCH ×2 (09:00→20:03)
[2021-06-22 10:01] VITALS: BP 123/64
[2021-06-22] MEDS: AMIODARONE 200 MG TABLET PO SCH ×2 (10:09→20:04)
[2021-06-22] MEDS: FERROUS SULFATE 325 MG TABLET PO SCH ×2 (10:09→17:38)
[2021-06-22] MEDS: DULOXETINE 30 MG CAPSULE.DR PO SCH ×2 (10:10→20:04)
[2021-06-22] MEDS: ALLOPURINOL 100 MG TABLET PO SCH (10:10)
[2021-06-22] MEDS: PREGABALIN 25 MG CAPSULE PO SCH ×3 (10:10→20:03)
[2021-06-22] MEDS: APIXABAN 5 MG TABLET PO SCH ×2 (10:10→20:04)
[2021-06-22] MEDS: LOSARTAN 50MG TABLET PO SCH (10:10)
[2021-06-22] MEDS: LEVETIRACETAM 500 MG TABLET PO SCH ×2 (10:10→20:04)
[2021-06-22 12:03] VITALS: BP 131/69
[2021-06-22] MEDS: ACETAMINOPHEN 325 MG TABLET PO PRN (12:49)
[2021-06-22 19:33] VITALS: BP 126/74
[2021-06-22] MEDS: FAMOTIDINE 20 MG TABLET PO SCH (20:03)
[2021-06-22] MEDS: ROPINIROLE 1MG TABLET PO SCH (20:04)
[2021-06-22] MEDS: DONEPEZIL 10 MG TABLET PO SCH (20:04)
[2021-06-23 01:50] VITALS: BP 101/64
[2021-06-23 07:58] VITALS: BP 112/68
[2021-06-23] MEDS: LOSARTAN 50MG TABLET PO SCH (08:11)
[2021-06-23] MEDS: LEVETIRACETAM 500 MG TABLET PO SCH ×2 (08:11→21:10)
[2021-06-23] MEDS: FERROUS SULFATE 325 MG TABLET PO SCH ×2 (08:11→17:31)
[2021-06-23] MEDS: ALLOPURINOL 100 MG TABLET PO SCH (08:12)
[2021-06-23] MEDS: PREGABALIN 25 MG CAPSULE PO SCH ×3 (08:12→21:10)
[2021-06-23] MEDS: METOPROLOL TARTRATE 25 MG TAB PO SCH ×2 (08:12→21:10)
[2021-06-23] MEDS: DULOXETINE 30 MG CAPSULE.DR PO SCH ×2 (08:12→21:11)
[2021-06-23] MEDS: APIXABAN 5 MG TABLET PO SCH ×2 (08:12→21:10)
[2021-06-23] MEDS: AMIODARONE 200 MG TABLET PO SCH ×2 (08:12→21:10)
[2021-06-23 12:16] VITALS: BP 128/74
[2021-06-23 20:43] VITALS: BP 131/72
[2021-06-23] MEDS: FAMOTIDINE 20 MG TABLET PO SCH (21:10)
[2021-06-23] MEDS: ROPINIROLE 1MG TABLET PO SCH (21:10)
[2021-06-23] MEDS: DONEPEZIL 10 MG TABLET PO SCH (21:10)
[2021-06-24 01:38] VITALS: BP 123/73
[2021-06-24 06:22] VITALS: BP 103/63
[2021-06-24] MEDS: LEVETIRACETAM 500 MG TABLET PO SCH ×2 (09:38→20:36)
[2021-06-24] MEDS: APIXABAN 5 MG TABLET PO SCH ×2 (09:38→20:36)
[2021-06-24] MEDS: METOPROLOL TARTRATE 25 MG TAB PO SCH ×2 (09:38→20:37)
[2021-06-24] MEDS: ALLOPURINOL 100 MG TABLET PO SCH (09:38)
[2021-06-24] MEDS: FERROUS SULFATE 325 MG TABLET PO SCH ×2 (09:38→16:39)
[2021-06-24] MEDS: DULOXETINE 30 MG CAPSULE.DR PO SCH ×2 (09:38→20:37)
[2021-06-24] MEDS: PREGABALIN 25 MG CAPSULE PO SCH ×3 (09:39→20:37)
[2021-06-24] MEDS: AMIODARONE 200 MG TABLET PO SCH ×2 (09:39→20:36)
[2021-06-24] MEDS: LOSARTAN 50MG TABLET PO SCH (09:39)
[2021-06-24] MEDS: ACETAMINOPHEN 325 MG TABLET PO PRN ×2 (15:28→20:02)
[2021-06-24 15:31] VITALS: BP 102/66
[2021-06-24 20:33] VITALS: BP 116/73
[2021-06-24] MEDS: DONEPEZIL 10 MG TABLET PO SCH (20:36)
[2021-06-24] MEDS: FAMOTIDINE 20 MG TABLET PO SCH (20:36)
[2021-06-24] MEDS: ROPINIROLE 1MG TABLET PO SCH (20:36)
[2021-06-25 01:44] VITALS: BP 95/51
[2021-06-25 08:12] VITALS: BP 96/58
[2021-06-25] MEDS: AMIODARONE 200 MG TABLET PO SCH ×2 (08:37→19:53)
[2021-06-25] MEDS: FERROUS SULFATE 325 MG TABLET PO SCH ×2 (08:37→17:06)
[2021-06-25] MEDS: ALLOPURINOL 100 MG TABLET PO SCH (08:37)
[2021-06-25] MEDS: PREGABALIN 25 MG CAPSULE PO SCH ×3 (08:37→19:54)
[2021-06-25] MEDS: APIXABAN 5 MG TABLET PO SCH ×2 (08:37→19:54)
[2021-06-25] MEDS: LEVETIRACETAM 500 MG TABLET PO SCH ×2 (08:37→19:52)
[2021-06-25] MEDS: DULOXETINE 30 MG CAPSULE.DR PO SCH ×2 (08:37→19:54)
[2021-06-25 08:39] VITALS: BP 115/69
[2021-06-25] MEDS: METOPROLOL TARTRATE 25 MG TAB PO SCH ×2 (08:46→19:54)
[2021-06-25] MEDS: LOSARTAN 50MG TABLET PO SCH (08:46)
[2021-06-25 13:51] VITALS: BP 110/67
[2021-06-25 19:14] VITALS: BP 146/73
[2021-06-25] MEDS: ROPINIROLE 1MG TABLET PO SCH (19:52)
[2021-06-25] MEDS: DONEPEZIL 10 MG TABLET PO SCH (19:53)
[2021-06-25] MEDS: FAMOTIDINE 20 MG TABLET PO SCH (19:54)
[2021-06-26 01:41] VITALS: BP 98/62
[2021-06-26 08:05] VITALS: BP 144/88
[2021-06-26] MEDS: METOPROLOL TARTRATE 25 MG TAB PO SCH ×2 (09:00→20:59)
[2021-06-26] MEDS: APIXABAN 5 MG TABLET PO SCH ×2 (10:32→20:59)
[2021-06-26] MEDS: LEVETIRACETAM 500 MG TABLET PO SCH ×2 (10:32→20:59)
[2021-06-26] MEDS: DULOXETINE 30 MG CAPSULE.DR PO SCH ×2 (10:32→20:59)
[2021-06-26] MEDS: LOSARTAN 50MG TABLET PO SCH (10:32)
[2021-06-26] MEDS: FERROUS SULFATE 325 MG TABLET PO SCH ×2 (10:32→17:01)
[2021-06-26] MEDS: PREGABALIN 25 MG CAPSULE PO SCH ×3 (10:32→21:00)
[2021-06-26] MEDS: AMIODARONE 200 MG TABLET PO SCH ×2 (10:32→21:00)
[2021-06-26] MEDS: ALLOPURINOL 100 MG TABLET PO SCH (10:32)
[2021-06-26 12:34] VITALS: BP 140/77
[2021-06-26 19:10] VITALS: BP 134/72
[2021-06-26] MEDS: DONEPEZIL 10 MG TABLET PO SCH (20:59)
[2021-06-26] MEDS: ROPINIROLE 1MG TABLET PO SCH (21:00)
[2021-06-26] MEDS: FAMOTIDINE 20 MG TABLET PO SCH (21:00)
[2021-06-27 00:55] VITALS: BP 127/65
[2021-06-27] MEDS: ACETAMINOPHEN 325 MG TABLET PO PRN ×2 (02:38→08:13)
[2021-06-27 07:03] LABS: CREATININE 1.07 mg/dL (0.55-1.02)
[2021-06-27 08:01] VITALS: BP 121/63
[2021-06-27] MEDS: PREGABALIN 25 MG CAPSULE PO SCH ×2 (08:13→16:19)
[2021-06-27] MEDS: DULOXETINE 30 MG CAPSULE.DR PO SCH (08:13)
[2021-06-27] MEDS: APIXABAN 5 MG TABLET PO SCH (08:13)
[2021-06-27] MEDS: ERGOCALCIFEROL 50,000 UNIT CAPSULE PO SCH (08:13)
[2021-06-27] MEDS: LOSARTAN 50MG TABLET PO SCH (08:13)
[2021-06-27] MEDS: AMIODARONE 200 MG TABLET PO SCH (08:14)
[2021-06-27] MEDS: ALLOPURINOL 100 MG TABLET PO SCH (08:14)
[2021-06-27] MEDS: METOPROLOL TARTRATE 25 MG TAB PO SCH (08:17)
[2021-06-27] MEDS: LEVETIRACETAM 500 MG TABLET PO SCH (08:19)
[2021-06-27] MEDS: FERROUS SULFATE 325 MG TABLET PO SCH ×2 (08:19→16:19)
[2021-06-27] MEDS ORDERED: PREG25CA PO (11:14)
[2021-06-27] MEDS ORDERED: QUET25TA7 PO (11:14)
[2021-06-27] MEDS ORDERED: AMIO200T42 PO (11:14)
[2021-06-27] MEDS ORDERED: HYDR-3343 PO (11:14)
[2021-06-27] MEDS ORDERED: LOSA50TA2 PO (11:14)
[2021-06-27] MEDS ORDERED: METO25TA35 PO (11:14)
[2021-06-27] MEDS ORDERED: DULO30CA2 PO (11:14)
[2021-06-27] MEDS ORDERED: FURO-92 PO (11:34)
[2021-06-27] MEDS ORDERED: TRAM-47 PO (11:36)
[2021-06-27 13:22] VITALS: BP 138/76
[2021-06-28] MEDS ORDERED: AMIODARONE 200 MG TABLET PO SCH (09:00)
[2021-07-14] MEDS ORDERED: LOSA50TA14 PO (12:12)
[2021-07-14] MEDS ORDERED: FURO-93 PO (12:12)
[2021-07-14] MEDS ORDERED: HYDR-3342 PO (12:12)
[2021-07-14] MEDS ORDERED: POTA10CA PO (12:12)
== END 2021-06-27 17:15 | DRG 314 ==
LOC: ED 16:47 → SUATTDRO 20:06 → CCU 23:28 → 5SO 06-03 11:08 → 3N 06-10 16:40
PROVIDERS: ADMIT Student in an Organized Health Care Education/Training Program; ATTEND Internal Medicine
PROC: 30233N1 Transfusion of Nonautologous Red Blood Cells into Peripheral Vein, Percutaneous Approach (ICD-10-PCS; principal; 2021-05-30)
PROC: 02HV33Z Insertion of Infusion Device into Superior Vena Cava, Percutaneous Approach (ICD-10-PCS; 2021-05-30)
PROC: B548ZZA Ultrasonography of Superior Vena Cava, Guidance (ICD-10-PCS; 2021-05-30)
PROC: 0M943ZZ Drainage of Left Elbow Bursa and Ligament, Percutaneous Approach (ICD-10-PCS; 2021-06-07)
PROC: 5A09357 Assistance with Respiratory Ventilation, Less than 24 Consecutive Hours, Continuous Positive Airway Pressure (ICD-10-PCS; 2021-06-09)
PROC: 5A09357 Assistance with Respiratory Ventilation, Less than 24 Consecutive Hours, Continuous Positive Airway Pressure (ICD-10-PCS; 2021-06-10)
PROC: 5A09357 Assistance with Respiratory Ventilation, Less than 24 Consecutive Hours, Continuous Positive Airway Pressure (ICD-10-PCS; 2021-06-11)
PROC: 5A09357 Assistance with Respiratory Ventilation, Less than 24 Consecutive Hours, Continuous Positive Airway Pressure (ICD-10-PCS; 2021-06-12)
PROC: 5A09357 Assistance with Respiratory Ventilation, Less than 24 Consecutive Hours, Continuous Positive Airway Pressure (ICD-10-PCS; 2021-06-17)
PROC: 5A09357 Assistance with Respiratory Ventilation, Less than 24 Consecutive Hours, Continuous Positive Airway Pressure (ICD-10-PCS; 2021-06-18)
PROC: 5A09357 Assistance with Respiratory Ventilation, Less than 24 Consecutive Hours, Continuous Positive Airway Pressure (ICD-10-PCS; 2021-06-21)
PROC: 5A09357 Assistance with Respiratory Ventilation, Less than 24 Consecutive Hours, Continuous Positive Airway Pressure (ICD-10-PCS; 2021-06-26)
DX: I95.9 Hypotension, unspecified (principal); G93.41 Metabolic encephalopathy; N17.9 Acute kidney failure, unspecified; N39.0 Urinary tract infection, site not specified; I48.20 Chronic atrial fibrillation, unspecified; E87.1 Hypo-osmolality and hyponatremia; I50.32 Chronic diastolic (congestive) heart failure; D68.59 Other primary thrombophilia; I13.0 Hypertensive heart and chronic kidney disease with heart failure and stage 1 through stage 4 chronic kidney disease, or unspecified chronic kidney disease; D84.821 Immunodeficiency due to drugs; M84.48XA Pathological fracture, other site, initial encounter for fracture; J96.11 Chronic respiratory failure with hypoxia; N18.30 Chronic kidney disease, stage 3 unspecified; E66.9 Obesity, unspecified; I27.20 Pulmonary hypertension, unspecified; I48.0 Paroxysmal atrial fibrillation; J44.9 Chronic obstructive pulmonary disease, unspecified; G40.909 Epilepsy, unspecified, not intractable, without status epilepticus; M06.9 Rheumatoid arthritis, unspecified; G89.29 Other chronic pain; B96.1 Klebsiella pneumoniae [K. pneumoniae] as the cause of diseases classified elsewhere; H70.90 Unspecified mastoiditis, unspecified ear; I25.10 Atherosclerotic heart disease of native coronary artery without angina pectoris; D63.8 Anemia in other chronic diseases classified elsewhere; G47.33 Obstructive sleep apnea (adult) (pediatric); F03.90 Unspecified dementia, unspecified severity, without behavioral disturbance, psychotic disturbance, mood disturbance, and anxiety; F32.9 Major depressive disorder, single episode, unspecified; I35.0 Nonrheumatic aortic (valve) stenosis; M70.22 Olecranon bursitis, left elbow; Z96.652 Presence of left artificial knee joint; Z79.899 Other long term (current) drug therapy; Z81.8 Family history of other mental and behavioral disorders; Z82.49 Family history of ischemic heart disease and other diseases of the circulatory system; Z82.61 Family history of arthritis; Z82.0 Family history of epilepsy and other diseases of the nervous system; Z82.5 Family history of asthma and other chronic lower respiratory diseases; Z87.891 Personal history of nicotine dependence; Z68.32 Body mass index [BMI] 32.0-32.9, adult; Z86.14 Personal history of Methicillin resistant Staphylococcus aureus infection; Z79.01 Long term (current) use of anticoagulants; Z87.11 Personal history of peptic ulcer disease; Z87.440 Personal history of urinary (tract) infections; Z90.710 Acquired absence of both cervix and uterus; Z95.5 Presence of coronary angioplasty implant and graft; Z99.81 Dependence on supplemental oxygen; Z88.0 Allergy status to penicillin; Z88.2 Allergy status to sulfonamides; Z88.8 Allergy status to other drugs, medicaments and biological substances; Z91.013 Allergy to seafood; Z88.6 Allergy status to analgesic agent
CPT/HCPCS: 36415; 36430; 36556; 70450; 71045; 71250; 74176; 77002; 80048; 80053; 80162; 81001; 82533; 82565; 82570; 82607; 82728; 82977; 83540; 83550; 83605; 83880; 84145; 84156; 84443; 84484; 85025; 85610; 85651; 85730; 85810; 86140; 86592; 86850; 86900; 86923; 87040; 87070; 87075; 87081; 87086; 87205; 87324; 88112; 88305; 89050; 89060; 91303; 93005; 94660; 96361; 96365; 96375; G0378; J0696; J1644; J1940; J3370; J7060; J0282; J1160; J2370; J7030; J7050; J7120; P9016

== ENCOUNTER 2021-06-28 10:56 | Inpatient (IN) | payer MEDICARE ==
[~2021-06-28] VITALS: Ht 165.1 cm; Wt 81.6 kg
[~2021-06-28 10:56] MED LIST changes: +AMIO200T42 PO; +DULO30CA2 PO; +HYDR-3343 PO; +LOSA50TA2 PO; +METO25TA35 PO; +PREG25CA PO; +QUET25TA7 PO; +TRAM-47 PO
[2021-06-28] MEDS ORDERED: SODIUM CHLORIDE FLUSH 10ML SYR IVF ONE (11:00)
--- NOTE | 2021-06-28 11:00 | NUR ---
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 transport crew states that pt had 5-6 falls overnight with head injury, but that they called the ambulance because her B/P "dropped". no VS were given on scene to transport crew. upon admit, pt is drowsy and lethargic. answers some yes/no questions but is not oriented and difficult to follow instructions. pt uncooperative with assessment pt has bruising and swelling around both eyes and pupils are pinpoint. pt has multiple bruises all over her body at various statges of healing. unknown implanted device to L back mild L facial droop noted on exam but unk of onset no family at bedside per report, pt is DNR per facility, but there is no paperwork, no POLST and no documentation
--- NOTE | 2021-06-28 11:10 | NUR ---
Dr Hernandez has been to bedside for eval
--- NOTE | 2021-06-28 11:22 | NUR ---
lab at bedside to draw
--- NOTE | 2021-06-28 11:22 | NUR ---
all clinical hx information collected from paperwork packet sent with pt.
[2021-06-28] MEDS ORDERED: PLEASE ENTER HEIGHT AND WEIGHT MC SCH (11:30)
--- NOTE | 2021-06-28 11:33 | NUR ---
CXR has been to bedside. pt resting in position of comfort
[2021-06-28 11:42] LABS: BASOPHILS % (AUTO) 1 % (0-1); EOSINOPHILS % (AUTO) 4 % (1-7); LYMPHOCYTES % (AUTO) 11 % (22-44); MEAN CORPUSCULAR HEMOGLOBIN 32.3 pg (27.0-34.8); MEAN CORPUSCULAR HGB CONC 32.7 g/dL (32.4-35.8); MEAN PLATELET VOLUME 9.3 fL (7.4-10.4); MONOCYTES % (AUTO) 9 % (2-9); NEUTROPHILS % (AUTO) 75 % (42-75); PLATELET COUNT 192 x10^3/uL (130-400); RED BLOOD COUNT 2.66 x10^6/uL (3.82-5.3); RED CELL DISTRIBUTION WIDTH 21.3 % (9.6-15.2)
--- NOTE | 2021-06-28 11:45 | NUR ---
pt to CT via anabel
[2021-06-28 11:48] LABS: INTERNATIONAL NORMALIZED RATIO 1.14 (0.93-1.1); PROTHROMBIN TIME 12.1 Seconds (9.6-11.5)
[2021-06-28 11:51] LABS: ALANINE AMINOTRANSFERASE 30 U/L (12-78); ALBUMIN 2.5 g/dL (3.4-5.0); ANION GAP 3 mmol/L (5-15); CALCIUM 8.5 mg/dL (8.5-10.1); CHLORIDE 114 mmol/L (98-107); CREATININE 1.08 mg/dL (0.55-1.02)
[2021-06-28 11:53] LABS: ALKALINE PHOSPHATASE 244 U/L (45-117); BILIRUBIN,TOTAL 0.3 mg/dL (0.2-1.0); TOTAL PROTEIN 5.4 g/dL (6.4-8.2)
--- NOTE | 2021-06-28 12:20 | NUR ---
pt sleeping in position of comfort. report to Frandy METCALF for lunch
[2021-06-28 12:45] LABS: MICROSCOPIC NOT IND
[2021-06-28] MEDS ORDERED: ONDANSETRON 2MG/ML, 2ML IVPush PRN (13:00)
[2021-06-28] MEDS ORDERED: POLYETHYLENE GLYCOL 17 GM PACKET PO PRN (13:00)
[2021-06-28] MEDS ORDERED: DEXTROSE 4 GM TAB.CHEW PO PRN (13:00)
[2021-06-28] MEDS: INSULIN LISPRO 100 UNITS/ML, PEN SQ-INSULIN SCH ×3 (13:00→19:51)
[2021-06-28] MEDS ORDERED: DEXTROSE 50%, 50ML SYRINGE IVPush PRN (13:00)
[2021-06-28] MEDS ORDERED: GLUCAGON 1 MG IM PRN (13:00)
[2021-06-28] MEDS ORDERED: LABETALOL 5MG/ML, 20ML IVPush PRN (13:00)
--- NOTE | 2021-06-28 13:43 | NUR ---
bed assignment has been recieved, attempting to call report
--- NOTE | 2021-06-28 13:46 | NUR ---
report called to NICKOLAS METCALF
[2021-06-28 14:50] VITALS: BP 143/64
[2021-06-28 19:23] VITALS: BP 144/68
[2021-06-28] MEDS: SODIUM CHLORIDE FLUSH 10ML SYR IVF SCH (19:51)
[2021-06-28] MEDS ORDERED: MELATONIN 5 MG TABLET PO PRN (21:00)
[2021-06-29 01:27] VITALS: BP 151/67
[2021-06-29 05:27] LABS: BASOPHILS % (AUTO) 1 % (0-1); EOSINOPHILS % (AUTO) 4 % (1-7); LYMPHOCYTES % (AUTO) 10 % (22-44); MEAN CORPUSCULAR HEMOGLOBIN 32.4 pg (27.0-34.8); MEAN CORPUSCULAR HGB CONC 32.3 g/dL (32.4-35.8); MEAN PLATELET VOLUME 8.8 fL (7.4-10.4); MONOCYTES % (AUTO) 9 % (2-9); NEUTROPHILS % (AUTO) 77 % (42-75); PLATELET COUNT 213 x10^3/uL (130-400); RED BLOOD COUNT 2.93 x10^6/uL (3.82-5.3); RED CELL DISTRIBUTION WIDTH 21.2 % (9.6-15.2)
[2021-06-29 05:40] LABS: ANION GAP 4 mmol/L (5-15); CALCIUM 8.4 mg/dL (8.5-10.1); CHLORIDE 114 mmol/L (98-107)
[2021-06-29 06:34] VITALS: BP 132/65
[2021-06-29] MEDS: INSULIN LISPRO 100 UNITS/ML, PEN SQ-INSULIN SCH ×4 (07:00→20:56)
[2021-06-29] MEDS: SODIUM CHLORIDE FLUSH 10ML SYR IVF SCH ×2 (08:22→20:56)
[2021-06-29 12:42] VITALS: BP 124/60
[2021-06-29 19:02] VITALS: BP 107/50
[2021-06-30 00:09] VITALS: BP 137/58
[2021-06-30] MEDS: INSULIN LISPRO 100 UNITS/ML, PEN SQ-INSULIN SCH ×2 (07:00→11:00)
[2021-06-30] MEDS ORDERED: MELA5TAB14 PO (07:07)
[2021-06-30 08:22] VITALS: BP 132/60
[2021-06-30] MEDS: SODIUM CHLORIDE FLUSH 10ML SYR IVF SCH (09:00)
[2021-06-30] MEDS ORDERED: TRAM50TA2 PO (10:46)
[2021-07-14] MEDS ORDERED: FURO-93 PO (12:12)
[2021-07-14] MEDS ORDERED: POTA10CA PO (12:12)
[2021-07-14] MEDS ORDERED: HYDR-3342 PO (12:12)
[2021-07-14] MEDS ORDERED: LOSA50TA14 PO (12:12)
== END 2021-06-30 12:00 | DRG 92 ==
LOC: ED 11:25 → EDIP 12:40 → 4NW 14:15
PROVIDERS: ADMIT Internal Medicine; ATTEND Internal Medicine
PROC: 0T9B70Z Drainage of Bladder with Drainage Device, Via Natural or Artificial Opening (ICD-10-PCS; principal; 2021-06-28)
DX: G92 Toxic encephalopathy (principal); J96.11 Chronic respiratory failure with hypoxia; I13.0 Hypertensive heart and chronic kidney disease with heart failure and stage 1 through stage 4 chronic kidney disease, or unspecified chronic kidney disease; I50.42 Chronic combined systolic (congestive) and diastolic (congestive) heart failure; M84.48XA Pathological fracture, other site, initial encounter for fracture; S00.83XA Contusion of other part of head, initial encounter; S09.90XA Unspecified injury of head, initial encounter; F03.90 Unspecified dementia, unspecified severity, without behavioral disturbance, psychotic disturbance, mood disturbance, and anxiety; F32.9 Major depressive disorder, single episode, unspecified; G40.909 Epilepsy, unspecified, not intractable, without status epilepticus; G47.33 Obstructive sleep apnea (adult) (pediatric); G89.29 Other chronic pain; I25.10 Atherosclerotic heart disease of native coronary artery without angina pectoris; I27.20 Pulmonary hypertension, unspecified; I35.0 Nonrheumatic aortic (valve) stenosis; I48.0 Paroxysmal atrial fibrillation; J44.9 Chronic obstructive pulmonary disease, unspecified; N18.30 Chronic kidney disease, stage 3 unspecified; R29.6 Repeated falls; R62.7 Adult failure to thrive; M06.9 Rheumatoid arthritis, unspecified; Z66 Do not resuscitate; Z79.01 Long term (current) use of anticoagulants; Z87.11 Personal history of peptic ulcer disease; Z90.710 Acquired absence of both cervix and uterus; Z95.5 Presence of coronary angioplasty implant and graft; Y93.89 Activity, other specified; Y92.89 Other specified places as the place of occurrence of the external cause; Y99.8 Other external cause status; Z88.2 Allergy status to sulfonamides; Z88.0 Allergy status to penicillin
CPT/HCPCS: 36415; 70450; 71045; 72125; 80048; 80053; 80320; 81003; 82962; 83735; 85025; 85610; G0378; G0480